=== PATIENT | male | born 1940 | race Caucasian/White ===

== ENCOUNTER 2017-07-03 17:43 | Inpatient (IN) | payer MEDICARE ==
--- NOTE | 2017-07-03 22:13 | CP.PCM.HP ---
History of Present Illness - History of Present Illness History of Present Illness: PMD: Erik Chadwick MD Urology Dr Brooks Neurology: Dr Bender Chief complaint: Right side weakness/Hematuria The patient was seen and examined in the Rehab Unit HPI: The hx is obtained from the patient and after review of the medical records. The patient was transferred from [facility] [place] to the [facility] for Rehabilitation. He is a 77 years old male with no significant medical hx, who was admitted to the [facility] on 06/23/17 with right side weakness and diagnosed with Acute CVA. While there he had Hematuria and CT abdomen/Pelvis showed a Pelvic mass. Cystoscopy was done with Evacuation of clots and fulguration of prostate bleeding. he received 7 units of PRBC and 2 FFP with 1 Platelet At present the patient is still with Dysarthria, weakness to the right upper and lower extremities with fontenot catheter in place having clear urine. PMH: Right inguinal Hernia; axillary abscess; HTN, Bladder base mass; Anemia due ot blood losssfrom Hematuria PSG: right Inguinal Hernia repair; I&D of Axillary Abscess SH: Live alone; Quit smoking 12 months ago; No Alcohol since 12 years ago; No illegal drug use FH: State: No known family Hx Allergy: NKDA Medication: Reviewed Present on Admission - Present on Admission Any Indicators Present on Admission: Yes History of DVT/PE: No History of Uncontrolled Diabetes: No Urinary Catheter: Yes Decubitus Ulcer Present: No Decubitus Ulcer Stage: II Review of Systems - Constitutional Constitutional: absent: Anorexia, Chills, Fever, Headache - EENT Eyes: absent: Itchy Eyes, Photophobia, Requires Corrective Lenses, Sees Flashes Ears: absent: Decreased Hearing, Ear Discharge, Ear Pain, Tinnitus Nose/Mouth/Throat: absent: Epistaxis, Nasal Congestion, Nasal Discharge, Sinus Pain, Sinus Pressure - Cardiovascular Cardiovascular: absent: Chest Pain, Dyspnea, Pedal Edema - Respiratory Respiratory: absent: Cough, Dyspnea, Wheezing, Stridor - Gastrointestinal Gastrointestinal: absent: Abdominal Pain, Constipation, Diarrhea, Nausea, Vomiting - Genitourinary Genitourinary: Hematuria Additional comments: Urinary retention Indwelling Fontenot catheter in place - Musculoskeletal Musculoskeletal: Limited Range of Motion, Muscle Weakness - Integumentary Integumentary: absent: Pruritus, Rash, Skin Ulcer, Striae, Swelling - Neurological Neurological: Focal Weakness, Weakness. absent: Confusion, Dizziness, Headaches , Paresthesias - Psychiatric Psychiatric: absent: Anxiety, Depression, Panic Attacks - Endocrine Endocrine: absent: Palpitations, Polydipsia, Polyphagia, Polyuria - Hematologic/Lymphatic Hematologic: absent: Easy Bleeding, Easy Bruising Past Patient History - Past Social History Smoking Status: Former Smoker Chewing Tobacco Use: No Cigar Use: No Alcohol: Other Drugs: Denies Home Situation {Lives}: Alone - CARDIAC Hx Cardiac Disorders: No - PULMONARY Hx Respiratory Disorders: No - NEUROLOGICAL HX Cerebrovascular Accident: Yes - HEENT Hx HEENT Problems: No - RENAL Hx Chronic Kidney Disease: No - ENDOCRINE/METABOLIC Hx Endocrine Disorders: No - HEMATOLOGICAL/ONCOLOGICAL Hx Blood Disorders: Yes Hx Anemia: Yes Hx Blood Transfusions: Yes - INTEGUMENTARY Hx Dermatological Problems: No - MUSCULOSKELETAL/RHEUMATOLOGICAL Hx Musculoskeletal Disorders: Yes - GASTROINTESTINAL Hx Gastrointestinal Disorders: No - GENITOURINARY/GYNECOLOGICAL Hx Hematuria: Yes Hx Prostate Problems: Yes - PSYCHIATRIC Hx Anxiety: No - SURGICAL HISTORY Hx Herniorrhaphy: Yes Other/Comment: I&D axillary abscess - ANESTHESIA Hx Anesthesia: Yes Hx Anesthesia Reactions: No Meds Allergies/Adverse Reactions: Allergies Allergy/AdvReac Type Severity Reaction Status Date / Time No Known Allergies Allergy Verified 07/03/17 20:09 Physical Exam - Constitutional Appears: No Acute Distress - Head Exam Head Exam: ATRAUMATIC, NORMOCEPHALIC - Eye Exam Eye Exam: EOMI, PERRL Pupil Exam: NORMAL ACCOMODATION, PERRL - ENT Exam ENT Exam: Mucous Membranes Moist, Normal Exam, Normal External Ear Exam - Neck Exam Neck exam: Positive for: Full Rom, Normal Inspection. Negative for: Lymphadenopathy, Tenderness - Respiratory Exam Additional comments: Mild diffuse rales in borth lung smalls - Cardiovascular Exam Cardiovascular Exam: REGULAR RHYTHM, RRR, +S1, +S2 - GI/Abdominal Exam GI & Abdominal Exam: Diminished Bowel Sounds, Normal Bowel Sounds, Soft. absent : Mass, Organomegaly - Rectal Exam Rectal Exam: Deferred - Extremities Exam Additional comments: edema 2+ at right upper extremity - Back Exam Back exam: NORMAL INSPECTION. absent: CVA tenderness (L), CVA tenderness (R) - Neurological Exam Additional comments: Right facial droop. dysarthria. Motor strength 0/5 at the right hand and 2/5 at the right elbow, 4/5 at the right lower extremity. Motor strength 5/5 at left upper and left lower extremities. - Psychiatric Exam Psychiatric exam: Normal Affect, Normal Mood - Skin Skin Exam: Dry, Intact, Normal Color, Warm Results - Labs Labs: Laboratory Results - last 24 hr 07/03/17 21:58 POC Glucose (mg/dL) 142 H HbA1c 4.6 on 06/24/17 Fe 13 on 06/25/17 - Imaging and Cardiology ECHO Status: Report reviewed by me Additional comment: EF of 57 % with EF of 57% and normal global systolic functioning Mildly enlarged RV cavitary CT scan - head Status: Report reviewed by me Additional comment: 06/23/17 Mild to moderate nonspecific white matter change likely due to small vessel disease. Old Right Thalamic Lacunar infarct. Small Cerebellar infarct. CT angio Neck Status: Report reviewed by me Additional comment: No Hemodynamically significant stenosis involvingg the left or right carotid bifurcation CT Angio Head Status: Report reviewed by me Additional comment: the intracraneal arterial circulation reveals no evidence of large aneurysmal high -grade stenosis or large vessel occlusion. US renal and urinary bladder Status: Report reviewed by me Additional comment: 10 x8.0 x8.1cm mass at the bladder base which may represent a primary bladder neoplasm or arising from the prostate gland. Assessment & Plan - Assessment and Plan (Free Text) Assessment: #. Acute CVA #. Bladder Mass with Hematuria #. HTN #. Blood Loss Anemia Plan: 77 years old male admitted to the [facility] on 06/23/17 with right side weakness and diagnosed with Acute CVA. While there he had Hematuria and CT abdomen/Pelvis showed a Pelvic mass. Cystoscopy was done with Evacuation of clots and fulguration of prostate bleeding. he received 7 units of PRBC and 2 FFP with 1 Platelet At present the patient is still with Dysarthria, weakness to the right upper and lower extremities with fontenot catheter in place having clear urine. #. Acute CVA - Consult Dr Prabhakar Medical Technologist Prn - Consult Dr Bender Neurology - ASA - lipitor - PT/OT - Speech Therapy #. Bladder Mass with Hematuria s/p Cystoscopy and Bx - Maintain Fontenot catheter in place - To follow up with Dr Spangler Urology on discharge #. HTN - Amlodipine - follow Blood Pressures #. Blood Loss Anemia. patient was treated with blood transfusions and IV Venofer - Fesol BID #. The Patient is not Diabetic - HbA1c 4.6 - Accu Check for 2 days #. DVT Prophylaxis with SCD. no Anticoagulant for 2 weeks because of the severe hematuria #. Code Status: Full - Date & Time Date: 07/03/17 Time: 22:13
[2017-07-04] MEDS: Insulin Lispro (humaLOG) 100 Units/ml Inj SC SCH ×4 (06:31→21:45)
[2017-07-04 06:36] LABS: BLOOD UREA NITROGEN 18 mg/dl (9-20); GFR AFRICAN-AMERICAN > 60; GFR NON-AFRICAN AMERICAN > 60
[2017-07-04 06:40] LABS: HEMOGLOBIN 10.4 g/dL (12.0-18.0); MEAN CELL VOLUME 87.5 fl (80.0-94.0); MEAN CORPUSCULAR HEMOGLOBIN 29.4 pg (27.0-31.0); MEAN CORPUSCULAR HGB CONC 33.7 g/dL (33.0-37.0); RBC 3.52 Mil/uL (4.40-5.90); RED CELL DISTRIBUTION WIDTH 16.5 % (11.5-14.5); WHITE BLOOD COUNT 6.7 K/uL (4.8-10.8)
[2017-07-04 07:10] LABS: INR 1.2 (0.9-1.2); PARTIAL THROMBOPLASTIN TIME 30.3 Seconds (25.6-37.1)
[2017-07-04] MEDS: Ferrous Sulfate 300 mg/5 mL Liq UD PO SCH (08:29)
--- NOTE | 2017-07-04 10:17 | PCM.OPOC ---
Physiatry Overall Plan of Care - Overall Plan of Care Estimated Length of Stay in Weeks: 3 Rehab Impairment: Mobility, Gait, Speech, Balance, Coordination Etiologic Diagnosis: Cerebrovascular Accident Rehab/Medical Prognosis: Fair - Anticipated Interventions Physical Therapy:: Yes Occupational Therapy:: Yes Speech Therapy:: Yes Recreational Therapy:: Yes - Therapy Goals Bed Mobility: Contact Guard Ambulation: Contact Guard Functional Positional Changes:: Contact Guard - Discharge Plan Identification of Barriers to Discharge: Home Situation Discharge Destination: Subacute
--- NOTE | 2017-07-04 10:19 | CP.PCM.CON ---
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 Left hand dominant Review of Systems - Constitutional Constitutional: absent: Chills - EENT Eyes: absent: Change in Vision Nose/Mouth/Throat: absent: Nasal Congestion - Cardiovascular Cardiovascular: absent: Chest Pain - Respiratory Respiratory: absent: Hemoptysis - Gastrointestinal Gastrointestinal: absent: Abdominal Pain - Musculoskeletal Musculoskeletal: absent: Back Pain - Integumentary Integumentary: Skin Ulcer (right buttock) - Neurological Neurological: Weakness (right UE>LE). absent: Abnormal Movements - Psychiatric Psychiatric: absent: Anxiety Past Patient History - Past Medical History & Family History Past Medical History?: Yes - Past Social History Smoking Status: Former Smoker Chewing Tobacco Use: No Cigar Use: No Alcohol: Other Drugs: Denies Home Situation {Lives}: Alone - CARDIAC Hx Cardiac Disorders: No - PULMONARY Hx Respiratory Disorders: No - NEUROLOGICAL HX Cerebrovascular Accident: Yes - HEENT Hx HEENT Problems: No - RENAL Hx Chronic Kidney Disease: No - ENDOCRINE/METABOLIC Hx Endocrine Disorders: No - HEMATOLOGICAL/ONCOLOGICAL Hx Blood Disorders: Yes Hx Anemia: Yes Hx Blood Transfusions: Yes - INTEGUMENTARY Hx Dermatological Problems: No - MUSCULOSKELETAL/RHEUMATOLOGICAL Hx Musculoskeletal Disorders: Yes - GASTROINTESTINAL Hx Gastrointestinal Disorders: No - GENITOURINARY/GYNECOLOGICAL Hx Hematuria: Yes Hx Prostate Problems: Yes - PSYCHIATRIC Hx Anxiety: No - SURGICAL HISTORY Hx Herniorrhaphy: Yes Other/Comment: I&D axillary abscess - ANESTHESIA Hx Anesthesia: Yes Hx Anesthesia Reactions: No Meds Allergies/Adverse Reactions: Allergies Allergy/AdvReac Type Severity Reaction Status Date / Time No Known Allergies Allergy Verified 07/03/17 20:09 - Medications Medications: Current Medications Amlodipine Besylate (Norvasc) 10 mg PO DAILY [facility] Last Admin: 07/04/17 08:29 Dose: 10 mg Aspirin (Ecotrin) 81 mg PO DAILY [facility] Last Admin: 07/04/17 08:28 Dose: 81 mg Atorvastatin Calcium (Lipitor) 80 mg PO [facility] Last Admin: 07/03/17 22:54 Dose: 80 mg Ferrous Sulfate (Feosol Liq) 300 mg PO DAILY [facility] Last Admin: 07/04/17 08:29 Dose: 300 mg Finasteride (Proscar) 5 mg PO DAILY [facility] Last Admin: 07/04/17 08:28 Dose: 5 mg Insulin Human Lispro (Humalog) 0 units SC [facility] PRN Reason: Protocol Last Admin: 07/04/17 06:31 Dose: Not Given Tamsulosin HCl (Flomax) 0.4 mg PO DAILY [facility] Physical Exam - Constitutional Appears: Non-toxic, No Acute Distress - Head Exam Head Exam: ATRAUMATIC, NORMAL INSPECTION, NORMOCEPHALIC - Eye Exam Eye Exam: EOMI - ENT Exam ENT Exam: Mucous Membranes Moist - Respiratory Exam Respiratory Exam: NORMAL BREATHING PATTERN - Cardiovascular Exam Cardiovascular Exam: REGULAR RHYTHM - GI/Abdominal Exam GI & Abdominal Exam: absent: Distended, Firm - Extremities Exam Extremities exam: Negative for: calf tenderness, pedal edema - Neurological Exam Neurological exam: Alert, Oriented x3 - Expanded Neurological Exam Expanded Speech: Garbled Speech (dysarthria) Neuro motor strength exam: Left Upper Extremity: 5, Right Upper Extremity: 2/1 ( no distal strength), Left Lower Extremity: 5, Right Lower Extremity: 3 Coma Scale Eye Opening: SPONTANEOUS Coma Scale Motor Response: OBEYS COMMANDS - Psychiatric Exam Psychiatric exam: Normal Affect, Normal Mood - Skin Skin Exam: Normal Color (has a 2x2 skin tear right buttock stage II) Results - Vital Signs Recent Vital Signs: Last Vital Signs Temp 97.9 F 07/04/17 08:00 Pulse 73 07/04/17 08:29 Resp 20 07/04/17 08:00 BP 145/69 07/04/17 08:29 Pulse Ox 100 07/04/17 08:00 - Labs Result Diagrams: 07/04/17 05:25 07/04/17 05:25 Labs: Laboratory Results - last 24 hr 07/03/17 07/04/17 07/04/17 21:58 05:25 05:25 WBC 6.7 RBC 3.52 L Hgb 10.4 L Hct 30.8 L MCV 87.5 MCH 29.4 MCHC 33.7 RDW 16.5 H Plt Count 398 PT 13.0 INR 1.2 APTT 30.3 Sodium Potassium Chloride Carbon Dioxide Anion Gap BUN Creatinine Est GFR ( Amer) Est GFR (Non-Af Amer) POC Glucose (mg/dL) 142 H Random Glucose Calcium 07/04/17 07/04/17 05:25 05:55 WBC RBC Hgb Hct MCV MCH MCHC RDW Plt Count PT INR APTT Sodium 135 Potassium 3.9 Chloride 99 Carbon Dioxide 26 Anion Gap 14 BUN 18 Creatinine 0.7 L Est GFR ( Amer) > 60 Est GFR (Non-Af Amer) > 60 POC Glucose (mg/dL) 81 Random Glucose 76 Calcium 8.0 L Assessment & Plan - Assessment and Plan (Free Text) Assessment: Left CVA with right HP, MCA distribution right stage II buttock skin tear not pressure ulcer, will treat with allevyn thin PT/OT to continue to help increase functional independence Team conference for d/c planning Pain: controlled Vascular: no evidence of DVT GI: No evidence of constipation or diarrhea Patient is an excellent acute rehabilitation candidate and will have focused wound care, PT, OT and recreational therapy to help facilitate a safe and appropriate d/c plan Plan: impairment code 01.2
--- NOTE | 2017-07-04 11:26 | CP.PCM.PN ---
Subjective - Date & Time of Evaluation Date of Evaluation: 07/04/17 Time of Evaluation: 10:00 - Subjective Subjective: Patient seen and examined at bedside. States he feels well. No new complaints currently. Denies cp, sob, worsening weakness, headache, n/v/d. Objective - Vital Signs/Intake and Output Vital Signs (last 24 hours): Temp Pulse Resp BP Pulse Ox 97.9 F 73 20 145/69 100 07/04/17 08:00 07/04/17 08:29 07/04/17 08:00 07/04/17 08:29 07/04/17 08:00 - Medications Medications: Current Medications Amlodipine Besylate (Norvasc) 10 mg PO DAILY [facility] Last Admin: 07/04/17 08:29 Dose: 10 mg Aspirin (Ecotrin) 81 mg PO DAILY [facility] Last Admin: 07/04/17 08:28 Dose: 81 mg Atorvastatin Calcium (Lipitor) 80 mg PO HS [facility] Last Admin: 07/03/17 22:54 Dose: 80 mg Ferrous Sulfate (Feosol Liq) 300 mg PO DAILY [facility] Last Admin: 07/04/17 08:29 Dose: 300 mg Finasteride (Proscar) 5 mg PO DAILY [facility] Last Admin: 07/04/17 08:28 Dose: 5 mg Insulin Human Lispro (Humalog) 0 units SC [facility] PRN Reason: Protocol Last Admin: 07/04/17 06:31 Dose: Not Given Tamsulosin HCl (Flomax) 0.4 mg PO DAILY [facility] - Labs Labs: 07/04/17 05:25 07/04/17 05:25 PT 13.0 Seconds (9.8-13.1) 07/04/17 05:25 INR 1.2 (0.9-1.2) 07/04/17 05:25 APTT 30.3 Seconds (25.6-37.1) 07/04/17 05:25 - Additional Findings Additional findings: Physical exam: Constitutional- cooperative, awake, alert Head- NCAT, PERRL Eye- PERRL, EOMI ENT- normal exam, MMM. Neck- normal inspection, supple, no JVD Respiratory- CTAB, no wheezes rales rhonchi Cardiovascular- RRR, +S1, +S2 no MRG GI/Abdominal- normal bowel sounds, soft, no mass, no hsm Skin- warm, dry. STAGE 2 Sacral decubitus ulcer on right buttock present since admission. Extremities Exam- normal capillary refill, normal inspection. +2 edema at right upper extremity Neurological Exam- + right facial droop, Motor strength 1/5 right hand, 2/5 at right elbow, 4/5 at right lower extremity. Motor strength 5/5 at left upper and left lower extremities. alert, awake, oriented Psych- normal mood, normal affect Assessment and Plan - Assessment and Plan (Free Text) Plan: #. Acute CVA #. Bladder Mass with Hematuria #. HTN #. Blood Loss Anemia Plan: 77 years old male admitted to the [facility] on 06/23/17 with right side weakness and diagnosed with Acute CVA. While there he had Hematuria and CT abdomen/Pelvis showed a Pelvic mass. Cystoscopy was done with Evacuation of clots and fulguration of prostate bleeding. he received 7 units of PRBC and 2 FFP with 1 Platelet At present the patient is still with Dysarthria, weakness to the right upper and lower extremities with fontenot catheter in place having clear urine. #. Acute CVA - Consult Dr Prabhakar Technical Sales Support Manager - Consult Dr Bedner Neurology - ASA - lipitor - PT/OT - Speech Therapy #. Bladder Mass with Hematuria s/p Cystoscopy and Bx - Maintain Fontenot catheter in place - To follow up with Dr Spangler Urology on discharge #. HTN - Amlodipine - follow Blood Pressures #. Blood Loss Anemia. patient was treated with blood transfusions and IV Venofer - Fesol BID #. The Patient is not Diabetic - HbA1c 4.6 - Accu Check for 1 more day then d/c if not elevated #. DVT Prophylaxis with SCD. no Anticoagulant for 2 weeks because of the severe hematuria #. Code Status: Full
[2017-07-05] MEDS: Insulin Lispro (humaLOG) 100 Units/ml Inj SC SCH ×2 (07:04→16:30)
[2017-07-05] MEDS: Sodium Chloride 0.9% 500 ML IV ONE (08:00)
--- NOTE | 2017-07-05 08:34 | PCM.RRT ---
<Martina Yusuf - Last Filed: 07/05/17 08:36> I.Reason for TRUCK DRIVER HELPER - A) Acute Change in Patient: Subjective: 77 yo M with PMH recent CVA, TRUCK DRIVER HELPER called due to AMS (unresponsive) and hypotension 79/43 mm Hg. Blood glucose fingerstick performed prior to responder arrival: 98. Pt is a recent transfer from [facility], is here for rehab. Of note, as per hx, was transfused 7U PRBC at [facility]. He has been receiving Norvasc 10 mg. O: Gen: On responder arrival, elderly male laying in bed, appears tired but alert, awake, oriented. CV: S1S2,RRR Resp: clear to ausc MSK: deficit on right side from recent CVA Interventions at TRUCK DRIVER HELPER EKG - NSR @ 73 bpm, biatrial enlargement 500 ml bolus NS Vitals at end of TRUCK DRIVER HELPER: BP 127/68 mm Hg, HR 77 bpm, SpO2 100% on room air. A: 77 yo M with PMH CVA, had TRUCK DRIVER HELPER called due to AMS/unresponsiveness and hypotension. During TRUCK DRIVER HELPER pt was responsive, and after fluid bolus started, BP improved to 127/68 mm Hg. Likely syncopal episode, but cannot rule out other etiologies such as but not limited to seizure, metabolic abnormalities. P: CT head w/o contrast EEG CBC CMP Troponin TSH Mg Phos Type and Screen AM cortisol PT on norvasc- hold norvasc Continue to monitor Pt seen/examined/discussed with hospitalist Dr. Driscoll. <Olga Lidia Driscoll - Last Filed: 07/05/17 09:06> Attending/Attestation - Attestation I have personally seen and examined this patient.: Yes I have fully participated in the care of the patient.: Yes I have reviewed all pertinent clinical information, including history, physical exam and plan: Yes Notes (Text): TRUCK DRIVER HELPER called bec of unresponsiveness for a few seconds described as " staring blankly". Noted BP at that time to be low. However event lasted less than a minute and patient was back to his baseline. No new Neuro deficit. Pt's BP then went up to baseline. A/P: ? Syncope vs Seizure - CT of head : subacute infarct, no bleed - IVF NS 500ml bolus - keep pt hydrated - EKG : no acute change - check CBC to r/o anemia ( pt has hx of anemia due to hematuria) - check CMP, Trop, Cortisol levl, TSH - EEG - Check for Orthostatic VS - Dr Bender - rec to start antiseizure med - will cont to monitor - hold Norvasc for now
--- NOTE | 2017-07-05 08:42 | CT ---
PROCEDURE: CT HEAD WITHOUT CONTRAST. HISTORY: FURNITURE CRATER, AMS COMPARISON: None available. TECHNIQUE: Axial computed tomography images were obtained through the head/brain without intravenous contrast. Radiation dose: Total exam DLP = 892.92 mGy-cm. This CT exam was performed using one or more of the following dose reduction techniques: Automated exposure control, adjustment of the mA and/or kV according to patient size, and/or use of iterative reconstruction technique. FINDINGS: HEMORRHAGE: No intracranial hemorrhage. BRAIN: No mass effect or edema. Low-attenuation extending from left bran radiata to high left frontal white matter with sparing overlying cortex. Possible subacute infarct. MCA territory. VENTRICLES: Unremarkable. No hydrocephalus. CALVARIUM: Unremarkable. PARANASAL SINUSES: Unremarkable as visualized. No significant inflammatory changes. MASTOID AIR CELLS: Unremarkable as visualized. No inflammatory changes. OTHER FINDINGS: None. IMPRESSION: Suspect left MCA territory subacute infarct. Please correlate clinically.
[2017-07-05] MEDS: Ferrous Sulfate 300 mg/5 mL Liq UD PO SCH (09:19)
[2017-07-05 10:22] LABS: BASO # 0.1 K/uL (0.0-0.2); BASO % 0.9 % (0.0-2.0); EOS % 0.2 % (0.0-4.0); HEMOGLOBIN 11.1 g/dL (12.0-18.0); LYMPH # 0.7 K/uL (1.0-4.3); MEAN CELL VOLUME 86.8 fl (80.0-94.0); MEAN CORPUSCULAR HEMOGLOBIN 29.8 pg (27.0-31.0); MEAN CORPUSCULAR HGB CONC 34.3 g/dL (33.0-37.0); MEAN PLATELET VOLUME 7.3 fl (7.2-11.7); MONO # 0.7 K/uL (0.0-0.8); NEUT # 9.4 K/uL (1.8-7.0); NEUT % 86.9 % (50.0-75.0); NRBC % 0.1 % (0.0-0.0); PLATELET COUNT 472 K/uL (130-400); RBC 3.73 Mil/uL (4.40-5.90); WHITE BLOOD COUNT 10.9 K/uL (4.8-10.8)
[2017-07-05 10:28] LABS: ALB/GLOB RATIO 0.8 (1.0-2.1); ALBUMIN 2.7 g/dL (3.5-5.0); ALT/SGPT 43 U/L (21-72); AST/SGOT 55 U/L (17-59); BLOOD UREA NITROGEN 16 mg/dl (9-20); CALCIUM 7.9 mg/dL (8.4-10.2); GFR AFRICAN-AMERICAN > 60; GFR NON-AFRICAN AMERICAN > 60
[2017-07-05 11:43] LABS: LYMPHOCYTE 6 % (20-50); MONOCYTE 7 % (0-10); NEUTROPHIL 87 % (42-75); TOTAL CELLS COUNTED 100
[2017-07-05 11:44] LABS: ACANTHOCYTES SLIGHT; ANISOCYTOSIS SLIGHT; BURR CELLS SLIGHT; GIANT PLATELETS PRESENT; OVALOCYTES SLIGHT; PLATELET ESTIMATE SLIGHTLY INCREASED (NORMAL); POIKILOCYTOSIS SLIGHT; SCHISTOCYTES SLIGHT; TOXIC GRANULATION PRESENT
[2017-07-05 11:46] LABS: LARGE PLATELETS PRESENT
--- NOTE | 2017-07-05 18:20 | CP.PCM.PN ---
Subjective - Date & Time of Evaluation Date of Evaluation: 07/05/17 Time of Evaluation: 14:00 - Subjective Subjective: no acute complaint at present Objective - Vital Signs/Intake and Output Vital Signs (last 24 hours): Temp Pulse Resp BP Pulse Ox 98.0 F 76 20 130/53 L 96 07/05/17 09:48 07/05/17 09:48 07/05/17 09:48 07/05/17 09:48 07/05/17 09:48 Intake and Output: 07/05/17 07/05/17 06:59 18:59 Intake Total 500 Output Total 1200 Balance -700 - Medications Medications: Current Medications Amlodipine Besylate (Norvasc) 10 mg PO DAILY [facility] Aspirin (Ecotrin) 81 mg PO DAILY [facility] Last Admin: 07/05/17 09:19 Dose: 81 mg Atorvastatin Calcium (Lipitor) 80 mg PO [facility] Last Admin: 07/04/17 21:05 Dose: 80 mg Ferrous Sulfate (Feosol Liq) 300 mg PO DAILY [facility] Last Admin: 07/05/17 09:19 Dose: 300 mg Finasteride (Proscar) 5 mg PO DAILY [facility] Last Admin: 07/05/17 09:19 Dose: 5 mg Insulin Human Lispro (Humalog) 0 units SC [facility] PRN Reason: Protocol Last Admin: 07/05/17 16:30 Dose: Not Given Levetiracetam (Keppra) 500 mg PO BID [facility] Last Admin: 07/05/17 17:51 Dose: 500 mg Tamsulosin HCl (Flomax) 0.4 mg PO DAILY@1999 [facility] Last Admin: 07/04/17 20:00 Dose: 0.4 mg - Labs Labs: 07/05/17 08:00 07/05/17 08:00 PT 13.0 Seconds (9.8-13.1) 07/04/17 05:25 INR 1.2 (0.9-1.2) 07/04/17 05:25 APTT 30.3 Seconds (25.6-37.1) 07/04/17 05:25 - Head Exam Head Exam: ATRAUMATIC, NORMAL INSPECTION, NORMOCEPHALIC - Eye Exam Eye Exam: EOMI, Normal appearance Pupil Exam: NORMAL ACCOMODATION, PERRL - ENT Exam ENT Exam: Mucous Membranes Moist - Neck Exam Neck Exam: Normal Inspection - Respiratory Exam Respiratory Exam: Clear to Ausculation Bilateral, NORMAL BREATHING PATTERN - Cardiovascular Exam Cardiovascular Exam: REGULAR RHYTHM - GI/Abdominal Exam GI & Abdominal Exam: Soft, Normal Bowel Sounds - Rectal Exam Rectal Exam: NORMAL INSPECTION - Exam External exam: NORMAL EXTERNAL EXAM - Extremities Exam Extremities Exam: Full ROM, Normal Capillary Refill, Normal Inspection - Back Exam Back Exam: NORMAL INSPECTION - Neurological Exam Neurological Exam: Alert, Awake Additional comments: weakness in extremities - Psychiatric Exam Psychiatric exam: Normal Affect, Normal Mood - Skin Skin Exam: Normal Color Assessment and Plan (1) Gait abnormality Assessment & Plan: plan for physical, occupational therapy , rec therapy covering for Dr Prabhakar for today Status: Acute
[2017-07-06] MEDS: Insulin Lispro (humaLOG) 100 Units/ml Inj SC SCH ×2 (07:12→17:22)
--- NOTE | 2017-07-06 09:14 | CP.PCM.CON ---
History of Present Illness - History of Present Illness History of Present Illness: Mr. Noriega is a 77 y/o AAM with no significant medical hx, who was admitted to the [facility] on 06/23/17 with right side weakness and diagnosed with Acute CVA. [place] [facility] [place] he had an episode of hematuria and CT abdomen/Pelvis showed a Pelvic mass. Cystoscopy was done with Evacuation of clots and fulguration of prostate bleeding. he received 7 units of PRBC and 2 FFP with 1 Platelet during [place] [facility] [place] He was seen by Dr. Bender [place] [facility] [place]The patient was transferred from [facility] to the [facility]. At present the patient is still with Dysarthria, weakness to the right upper and lower extremities with fontenot catheter in place having clear urine. History is obtained from the patient and after review of the medical records. On July 05, 2017 a MANAGER MOLECULAR was called due to AMS (unresponsive) and hypotension 79/43 mm Hg. Blood glucose fingerstick performed prior to responder arrival: 98 which prompted the team to consult our team ( Dr. Kevin/ Jaya). At present he is alert, oriented with dysarthria noted, denies any headache, dizziness, lightheadedness, blurred vision, nausea or vomiting. Review of Systems - Review of Systems All systems: reviewed and no additional remarkable complaints except Past Patient History - Past Medical History & Family History Past Medical History?: Yes - Past Social History Smoking Status: Former Smoker Chewing Tobacco Use: No Cigar Use: No Alcohol: Other Drugs: Denies Home Situation {Lives}: Alone - CARDIAC Hx Cardiac Disorders: No - PULMONARY Hx Respiratory Disorders: No - NEUROLOGICAL HX Cerebrovascular Accident: Yes - HEENT Hx HEENT Problems: No - RENAL Hx Chronic Kidney Disease: No - ENDOCRINE/METABOLIC Hx Endocrine Disorders: No - HEMATOLOGICAL/ONCOLOGICAL Hx Blood Disorders: Yes Hx Anemia: Yes Hx Blood Transfusions: Yes - INTEGUMENTARY Hx Dermatological Problems: No - MUSCULOSKELETAL/RHEUMATOLOGICAL Hx Musculoskeletal Disorders: Yes - GASTROINTESTINAL Hx Gastrointestinal Disorders: No - GENITOURINARY/GYNECOLOGICAL Hx Hematuria: Yes Hx Prostate Problems: Yes - PSYCHIATRIC Hx Anxiety: No - SURGICAL HISTORY Hx Herniorrhaphy: Yes Other/Comment: I&D axillary abscess - ANESTHESIA Hx Anesthesia: Yes Hx Anesthesia Reactions: No Meds Allergies/Adverse Reactions: Allergies Allergy/AdvReac Type Severity Reaction Status Date / Time No Known Allergies Allergy Verified 07/03/17 20:09 - Medications Medications: Current Medications Amlodipine Besylate (Norvasc) 10 mg PO DAILY [facility] Aspirin (Ecotrin) 81 mg PO DAILY [facility] Last Admin: 07/05/17 09:19 Dose: 81 mg Atorvastatin Calcium (Lipitor) 80 mg PO HS [facility] Last Admin: 07/05/17 21:22 Dose: 80 mg Ferrous Sulfate (Feosol Liq) 300 mg PO DAILY [facility] Last Admin: 07/05/17 09:19 Dose: 300 mg Finasteride (Proscar) 5 mg PO DAILY [facility] Last Admin: 07/05/17 09:19 Dose: 5 mg Insulin Human Lispro (Humalog) 0 units SC [facility] PRN Reason: Protocol Last Admin: 07/06/17 07:12 Dose: Not Given Levetiracetam (Keppra) 500 mg PO BID [facility] Last Admin: 07/05/17 17:51 Dose: 500 mg Tamsulosin HCl (Flomax) 0.4 mg PO DAILY@1999 [facility] Last Admin: 07/05/17 21:22 Dose: 0.4 mg Physical Exam - Constitutional Appears: No Acute Distress - Head Exam Head Exam: NORMAL INSPECTION - Eye Exam Eye Exam: EOMI, Normal appearance, PERRL Pupil Exam: PERRL - ENT Exam ENT Exam: Mucous Membranes Moist, Normal Exam - Neck Exam Neck exam: Positive for: Normal Inspection - Respiratory Exam Respiratory Exam: Clear to Auscultation Bilateral, NORMAL BREATHING PATTERN - Cardiovascular Exam Cardiovascular Exam: +S1, +S2 - GI/Abdominal Exam GI & Abdominal Exam: Normal Bowel Sounds, Soft. absent: Tenderness - Neurological Exam Neurological exam: Alert, Oriented x3 - Expanded Neurological Exam Expanded Patient oriented to: person, place, time Speech: Slurred Speech Cranial nerves: EOM's Intact: Normal, Facial Palsey w/Forehead Movement: Abnormal Right, Facial Sensation: Normal, Gag Reflex: Normal, Nystagmus: Normal , Tongue Deviation: Abnormal Right Cerebellar Function: Finger to Nose: Abnormal Right (with right side weakness unable to perform), Heel to Gonzalez: Abnormal Right Sensory exam: Lower Extremity 2 Point Discrimination: Normal, Lower Extremity Light Touch: Normal, Lower Extremity Pin Prick: Normal, Lower Extremity Temperature: Normal, Upper Extremity 2 Point Discrimination: Normal, Upper Extremity Light Touch: Normal, Upper Extremity Pin Prick: Normal, Upper Extremity Temperature: Normal Neuro motor strength exam: Left Upper Extremity: 5, Right Upper Extremity: 2/1, Left Lower Extremity: 5, Right Lower Extremity: 3 Results - Vital Signs Recent Vital Signs: Last Vital Signs Temp 97.3 F L 07/05/17 19:53 Pulse 78 07/05/17 19:53 Resp 19 07/05/17 19:53 BP 136/67 07/05/17 19:53 Pulse Ox 99 07/05/17 19:53 - Labs Result Diagrams: 07/05/17 08:00 07/05/17 08:00 Labs: Laboratory Results - last 24 hr 07/05/17 07/05/17 07/05/17 05:38 08:00 08:00 WBC 10.9 H D RBC 3.73 L Hgb 11.1 L Hct 32.4 L MCV 86.8 MCH 29.8 MCHC 34.3 RDW 16.0 H Plt Count 472 H MPV 7.3 Neut % (Auto) 86.9 H Lymph % (Auto) 6.0 L [place] % (Auto) 6.0 Eos % (Auto) 0.2 Baso % (Auto) 0.9 Neut # (Auto) 9.4 H Lymph # (Auto) 0.7 L [place] # (Auto) 0.7 Eos # (Auto) 0.0 Baso # (Auto) 0.1 Neutrophils % (Manual) 87 H Lymphocytes % (Manual) 6 L Monocytes % (Manual) 7 Toxic Granulation Present Platelet Estimate Slightly increased H Plt Clumps, EDTA TEST NOT PERFORMED Large Platelets Present Giant Platelets Present Poikilocytosis (manual Slight Anisocytosis (manual) Slight Ovalocytes Slight [place]anna Cells Slight Acanthocytes (Spur) Slight Schistocytes Slight Sodium 134 Potassium 4.2 Chloride 100 Carbon Dioxide 24 Anion Gap 14 BUN 16 Creatinine 0.7 L Est GFR ( Amer) > 60 Est GFR (Non-Af Amer) > 60 POC Glucose (mg/dL) 84 Random Glucose 97 Calcium 7.9 L Phosphorus Magnesium 2.1 Total Bilirubin 0.5 AST 55 ALT 43 Alkaline Phosphatase 54 Troponin I < 0.0120 Total Protein 6.0 L Albumin 2.7 L Globulin 3.3 Albumin/Globulin Ratio 0.8 L TSH 3rd Generation Cortisol AM Sample Blood Type Blood Type Confirm Antibody Screen BBK History Checked 0507/05/17 07/05/17 08:00 08:00 10:00 WBC RBC Hgb Hct MCV MCH MCHC RDW Plt Count MPV Neut % (Auto) Lymph % (Auto) [place] % (Auto) Eos % (Auto) Baso % (Auto) Neut # (Auto) Lymph # (Auto) [place] # (Auto) Eos # (Auto) Baso # (Auto) Neutrophils % (Manual) Lymphocytes % (Manual) Monocytes % (Manual) Toxic Granulation Platelet Estimate Plt Clumps, EDTA Large Platelets Giant Platelets Poikilocytosis (manual Anisocytosis (manual) Ovalocytes [employer] Cells Acanthocytes (Spur) Schistocytes Sodium Potassium Chloride Carbon Dioxide Anion Gap BUN Creatinine Est GFR ( Amer) Est GFR (Non-Af Amer) POC Glucose (mg/dL) Random Glucose Calcium Phosphorus 3.0 Magnesium Total Bilirubin AST ALT Alkaline Phosphatase Troponin I Total Protein Albumin Globulin Albumin/Globulin Ratio TSH 3rd Generation 1.74 Cortisol AM Sample 18.8 Blood Type A POSITIVE Blood Type Confirm Antibody Screen Negative BBK History Checked No verified bt 07/05/17 07/05/17 07/05/17 10:14 11:52 17:03 WBC RBC Hgb Hct MCV MCH MCHC RDW Plt Count MPV Neut % (Auto) Lymph % (Auto) [place] % (Auto) Eos % (Auto) Baso % (Auto) Neut # (Auto) Lymph # (Auto) [place] # (Auto) Eos # (Auto) Baso # (Auto) Neutrophils % (Manual) Lymphocytes % (Manual) Monocytes % (Manual) Toxic Granulation Platelet Estimate Plt Clumps, EDTA Large Platelets Giant Platelets Poikilocytosis (manual Anisocytosis (manual) Ovalocytes [place]anna Cells Acanthocytes (Spur) Schistocytes Sodium Potassium Chloride Carbon Dioxide Anion Gap BUN Creatinine Est GFR ( Amer) Est GFR (Non-Af Amer) POC Glucose (mg/dL) 161 H 79 Random Glucose Calcium Phosphorus Magnesium Total Bilirubin AST ALT Alkaline Phosphatase Troponin I Total Protein Albumin Globulin Albumin/Globulin Ratio TSH 3rd Generation Cortisol AM Sample Blood Type Blood Type Confirm A POSITIVE Antibody Screen BBK History Checked 07/06/17 05:32 WBC RBC Hgb Hct MCV MCH MCHC RDW Plt Count MPV Neut % (Auto) Lymph % (Auto) [place] % (Auto) Eos % (Auto) Baso % (Auto) Neut # (Auto) Lymph # (Auto) [place] # (Auto) Eos # (Auto) Baso # (Auto) Neutrophils % (Manual) Lymphocytes % (Manual) Monocytes % (Manual) Toxic Granulation Platelet Estimate Plt Clumps, EDTA Large Platelets Giant Platelets Poikilocytosis (manual Anisocytosis (manual) Ovalocytes [employer] Cells Acanthocytes (Spur) Schistocytes Sodium Potassium Chloride Carbon Dioxide Anion Gap BUN Creatinine Est GFR ( Amer) Est GFR (Non-Af Amer) POC Glucose (mg/dL) 84 Random Glucose Calcium Phosphorus Magnesium Total Bilirubin AST ALT Alkaline Phosphatase Troponin I Total Protein Albumin Globulin Albumin/Globulin Ratio TSH 3rd Generation Cortisol AM Sample Blood Type Blood Type Confirm Antibody Screen BBK History Checked - Imaging and Cardiology CT scan - head Additional comment: CT scan head done 07/05/2017 showed a left MCA territory subacute infarct. Assessment & Plan (1) CVA (cerebral vascular accident) Assessment and Plan: This is a 77 y/o AAM with no significant medical hx, who was admitted to the [facility] on 06/23/17 with right side weakness and diagnosed with Acute CVA with an episode of unresponsiveness yesterday. Case discussed with Dr. Kevin, recommend the following 1. PT/ OT/ ST eval and treat 2. Monitor blood pressure, refrain from being hypotensive. 3. Continue aspirin 81 mg PO daily 4. Maintain LDL < 70 keep lipitor 80 mg PO Q HS. 5. Encourage increase PO intake to mainatin hydration. Thank You. Status: Acute (2) Syncope Assessment and Plan: 77 y/o AAM with no significant medical hx, who was admitted to the [facility] on 06/23/17 with right side weakness and diagnosed with Acute CVA. with episode of unresponsive yesterday. Case discussed with Dr. Kevin, recommend the followin. EEG in am 2. Continue keppra 500 mg PO Q 12 hours. 3. echocardiogram to evaluate if unresponsive is not a cardiac issue. Thank You. Status: Acute
[2017-07-06] MEDS: Ferrous Sulfate 300 mg/5 mL Liq UD PO SCH (09:27)
[2017-07-07] MEDS: Ferrous Sulfate 300 mg/5 mL Liq UD PO SCH (08:51)
--- NOTE | 2017-07-07 12:24 | CP.PCM.PN ---
Subjective - Date & Time of Evaluation Date of Evaluation: 07/07/17 Time of Evaluation: 12:21 - Subjective Subjective: Mr. Marino was seen and examined at the bedside. He is alert, oriented with slurred speech with right facial droop and right side weakness.He denies any headache but claims of dizziness with change of position. His systolic blood pressure was at 70's this morning. At present, he is alert, able to recall the morning incident, and able to follow simple commands. Objective - Vital Signs/Intake and Output Vital Signs (last 24 hours): Temp Pulse Resp BP Pulse Ox 97.9 F 73 20 104/55 L 99 07/07/17 07:41 07/07/17 07:41 07/07/17 07:41 07/07/17 11:59 07/07/17 07:41 Intake and Output: 07/07/17 07/07/17 06:59 18:59 Intake Total 350 Output Total 1000 Balance -650 - Medications Medications: Current Medications Amlodipine Besylate (Norvasc) 10 mg PO DAILY [facility] Aspirin (Ecotrin) 81 mg PO DAILY [facility] Last Admin: 07/07/17 08:51 Dose: 81 mg Atorvastatin Calcium (Lipitor) 80 mg PO HS [facility] Last Admin: 07/06/17 21:42 Dose: 80 mg Ferrous Sulfate (Feosol Liq) 300 mg PO DAILY [facility] Last Admin: 07/07/17 08:51 Dose: 300 mg Finasteride (Proscar) 5 mg PO DAILY [facility] Last Admin: 07/07/17 08:51 Dose: 5 mg Levetiracetam (Keppra) 500 mg PO BID [facility] Last Admin: 07/07/17 08:51 Dose: 500 mg Tamsulosin HCl (Flomax) 0.4 mg PO DAILY@1999 [facility] Last Admin: 07/06/17 21:42 Dose: 0.4 mg - Labs Labs: 07/05/17 08:00 07/05/17 08:00 PT 13.0 Seconds (9.8-13.1) 07/04/17 05:25 INR 1.2 (0.9-1.2) 07/04/17 05:25 APTT 30.3 Seconds (25.6-37.1) 07/04/17 05:25 - Constitutional Appears: No Acute Distress - Head Exam Head Exam: NORMAL INSPECTION - Neurological Exam Neurological Exam: Alert, Awake, Oriented x3 Neuro motor strength exam: Left Upper Extremity: 4, Right Upper Extremity: 2/1, Left Lower Extremity: 4, Right Lower Extremity: 2/1 Additional comments: Alert, oriented in all spheres, follows commands. Assessment and Plan (1) CVA (cerebral vascular accident) Assessment & Plan: Case discussed with Dr. Kevin, continue all current medical, physical, occupational, and speech therapies. Recommend 0.9 NS at 100 ml/hr fr 6 pm to 6 am at nighttime to assist with orthostatic hypotension during daytime. [place] [facility] [place]. If the echocardiogram done in [facility] , EF is below 60 % to do Normal at 50 ml/hr for 12 hours at time time. Recommend to treat any underlying cause of elevated WBC, keep head of bed elevated at least 30 degrees for brain perfusion. Status: Acute
--- NOTE | 2017-07-07 14:43 | CP.PCM.PN ---
Subjective - Date & Time of Evaluation Date of Evaluation: 07/07/17 Time of Evaluation: 14:42 - Subjective Subjective: pt doing well no complaints at this time denies cp sob n/v/c/d hd stable nad Objective - Vital Signs/Intake and Output Vital Signs (last 24 hours): Temp Pulse Resp BP Pulse Ox 97.9 F 73 20 104/55 L 99 07/07/17 07:41 07/07/17 07:41 07/07/17 07:41 07/07/17 11:59 07/07/17 07:41 Intake and Output: 07/07/17 07/07/17 06:59 18:59 Intake Total 350 Output Total 1000 Balance -650 - Medications Medications: Current Medications Amlodipine Besylate (Norvasc) 10 mg PO DAILY [facility] Aspirin (Ecotrin) 81 mg PO DAILY [facility] Last Admin: 07/07/17 08:51 Dose: 81 mg Atorvastatin Calcium (Lipitor) 80 mg PO HS [facility] Last Admin: 07/06/17 21:42 Dose: 80 mg Ferrous Sulfate (Feosol Liq) 300 mg PO DAILY [facility] Last Admin: 07/07/17 08:51 Dose: 300 mg Finasteride (Proscar) 5 mg PO DAILY [facility] Last Admin: 07/07/17 08:51 Dose: 5 mg Sodium Chloride (Sodium Chloride 0.9%) 1,000 mls @ 100 mls/hr IV .Q10H [facility] Stop: 07/08/17 06:00 Levetiracetam (Keppra) 500 mg PO BID [facility] Last Admin: 07/07/17 08:51 Dose: 500 mg Tamsulosin HCl (Flomax) 0.4 mg PO DAILY@1999 [facility] Last Admin: 07/06/17 21:42 Dose: 0.4 mg - Labs Labs: 07/05/17 08:00 07/05/17 08:00 PT 13.0 Seconds (9.8-13.1) 07/04/17 05:25 INR 1.2 (0.9-1.2) 07/04/17 05:25 APTT 30.3 Seconds (25.6-37.1) 07/04/17 05:25 - Head Exam Additional comments: Vitals Reviewed GEN: WDWN, alert, cooperative HEENT: NCAT, PERRL, EOMI HEART: RRR, +S1S2, NO MRG LUNG: CTAB, NO WRR ABD: soft, NT, ND, No HSM, No masses EXT: normal pedal pulses, normal capillary refill NEURO: awake, alert SKIN: warm, dry PSYCH: normal mood, normal affect Assessment and Plan - Assessment and Plan (Free Text) Plan: 77 years old male admitted to the [facility] on 06/23/17 with right side weakness and diagnosed with Acute CVA. While there he had Hematuria and CT abdomen/Pelvis showed a Pelvic mass. Cystoscopy was done with Evacuation of clots and fulguration of prostate bleeding. he received 7 units of PRBC and 2 FFP with 1 Platelet At present the patient is still with Dysarthria, weakness to the right upper and lower extremities with fontenot catheter in place having clear urine. #. Acute CVA - Consult Dr Prabhakar Pediatric Occupational Therapist - Consult Dr Bender Neurology - ASA - lipitor - PT/OT - Speech Therapy #. Orthostatic Hypotension - fluids overnight at 100cc/hr - Neuro consult appreciated and followed #. Bladder Mass with Hematuria s/p Cystoscopy and Bx - Maintain Fontenot catheter in place - To follow up with Dr Spangler Urology on discharge #. HTN - Amlodipine - follow Blood Pressures #. Blood Loss Anemia. patient was treated with blood transfusions and IV Venofer - Fesol BID #. The Patient is not Diabetic - HbA1c 4.6 - Accu Check for 1 more day then d/c if not elevated #. DVT Prophylaxis with SCD. no Anticoagulant for 2 weeks because of the severe hematuria #. Code Status: Full
[2017-07-07 17:21] LABS: URINE BACTERIA RARE (<OCC); URINE BILIRUBIN NEGATIVE (NEGATIVE); URINE BLOOD MODERATE (NEGATIVE); URINE CLARITY SLIGHTY-CLOUDY (Clear); URINE COLOR YELLOW (YELLOW); URINE GLUCOSE (UA) NEG (Normal); URINE LEUKOCYTE ESTERASE TRACE Leu/uL (Negative); URINE PROTEIN 100 mg/dL (NEGATIVE); URINE UROBILINOGEN 0.2-1.0 mg/dL (0.2-1.0)
[2017-07-07] MEDS: Sodium Chloride 0.9% 1,000 ML IV SCH (17:26)
[2017-07-08] MEDS: Sodium Chloride 0.9% 1,000 ML IV SCH ×2 (03:23→17:05)
[2017-07-08] MEDS: Ferrous Sulfate 300 mg/5 mL Liq UD PO SCH (08:34)
--- NOTE | 2017-07-08 08:46 | EEG ---
DATE: 07/07/2017 TECHNICAL INFORMATION: Electrodes were placed according to the 10-20 International electrode system by food technologist. Total of 23 electrodes (21 EEG and 2 EKG) were placed. EEG activity was digitally recorded referentially to P1/P2 or A1/A2 electrodes. Continuous monitoring with EEG was performed using digital analysis for spike detection. The [employer] spike and seizure detection algorithms were used for digital EEG analysis throughout the monitoring period to screen the EEG in real-time and minerva the data file with pointers to electrographic seizures and interictal discharges. EEG was screened for electrographic seizures and interictal discharges by a technologist. Physician, epileptologist reviewed detections as well as extensive random samples and whole EEG study in detail. Digital EEG Analysis: Was carried out including FFT (Fast Fourier Transform), R2D2 (Rhythmicity Run Detection and Display), Relative Asymmetry Spectrogram, and voltage plot by the [employer] Software. The qualitative EEG analysis and the voltage plot mapping were used for detection of foci of paroxysmal and abnormal electrical cortical activity. GENERAL DESCRIPTION: Background Rhythm: There is a well-formed, 8-10 Hz posterior dominant rhythm that is reactive, symmetric, and attenuates with eye opening. There was a normal amount of frontal beta noted bilaterally. There is no sleep recorded. ACTIVATION PROCEDURES: Photic stimulation: There is no driving noted. Hyperventilation: There is slowing noted that is self-remitted. ABNORMAL ACTIVITY: There are no focal epileptiform discharges noted. No clinical or subclinical seizures noted. IMPRESSION: This is a normal awake and drowsy EEG. Clinical correlation is required. Blade Kevin MD
--- NOTE | 2017-07-08 11:14 | CARD ---
APPROVED REPORT EKG Measurement Heart [id number] <Conclusion> Normal sinus rhythm Biatrial enlargement Abnormal ECG
--- NOTE | 2017-07-08 13:26 | PSY.TMCNF ---
Nursing - Vital Signs Vital Signs (Last 8 hours): Vital Signs 07/08/17 07/08/17 08:17 09:00 Temperature 97.5 F L 97.5 F L Pulse Rate 51 L 51 L Respiratory 19 19 Rate Blood Pressure 137/72 137/72 O2 Sat by Pulse 98 Oximetry Pain: 0 - Precautions: Precautions: Fall Prevention - Medications/Other Issues Comment: Orthostatic hypotension, UTI? - Consults Comment: Dr. Kevin - Wound Right Buttock Wound Type: Skin Tear Wound Stage: STAGE II Periwound: Reddened Dressing Changed: No Wound Primary Dressing Type: Allevyn - Toileting Toileting: Moderate Assistance - Bladder Management Bladder Pattern: Retention Voiding Method: Condom ([place]) Catheter Bladder Management: Maximal Assistance - Bowel Management Bowel Pattern: Incontinent Bowel Management: Moderate Assistance - Transfers Transfers: Moderate Assistance - ADL's ADL's: Moderate Assistance - Pain Management Comments: Denies pain - Patient/Family Teaching Comments: Post CVA care, infection control - Goals/Time Frame Comments: Per Multidisciplinary team Physical Therapy - Bed Mobility Bed Mobility: Verbal Cues, Minimal Assistance, Moderate Assistance - Transfers Sit to Stand: Verbal Cues, Minimal Assistance, Moderate Assistance - Ambulation Level of Assistance: Verbal Cues, Moderate Assistance Distance (ft.): 8 - Stair Negotiation Stairs: Level of Assistance: Not Tested - Standing Balance Static Stand: Minimal Assistance Dynamic Stand: Moderate Assistance - Pain Pain (assessed during therapy session): 0 - Insight/Carryover Insight/Carryover: Fair - Patient/Family Education Comment: safety, therapy schedule, therapy goals, mobility, attention to task, POC, stroke recovery - Assessment/Plan Assessment: Patient is a 77 yo male presenting to [facility] s/p acute CVA with R sided hemiparesis. Precautions: Falls, cardiac, R UE laptray , R isotoner glove as tolerated, R sided hemiparesis, impaired safety awareness. Pt presents with R sided hemipareis impaired R UE/LE ROM/strength/propiocpetion, R facial droop/dysarthria , ikpaired safety awareness impacting his ability to complete self care, transfers and mobility safely and effectively. Patient is limited by low BP and bouts of dizziness. patient able to complete transfers with mod A, ub self care with mod A and lb self are with max A. Reccommend skilled IP OT services 5-6x/week to max functional I with aforementioned defecits. - Goals Timeframe: 2 weeks Goals: mod I ub self care. mod I lb self care. mod I functional transfers. mod I feeding/grooming. mod I toileting tasks - Provider Therapist: Priscilla Bettencourt PT License Number: [id number] Occupational Therapy - Arousal/Attention/Orientation Patient Orientation: Person, Place, Time, Appropriate to Age, Appropriate to Situation - ADL/IADL Self Feeding: Supervision, Verbal Cues, Set-up Help Grooming: Minimal Assistance, Moderate Assistance Dressing-Upper Extremity: Minimal Assistance, Moderate Assistance Dressing-Lower Extremity: Maximum Assistance - Sitting Balance Static Sitting: Supervision Dynamic Sitting: Contact Guard Assist - Transfers Wheelchair to Bed Transfers: Moderate Assistance Toilet Transfers: Moderate Assistance, Maximum Assistance Comment: tub/shower transfer to be assessed - Wheelchair Management Level of Assistance: Maximum Assistance Distance (ft.): 50 - Upper Extremity Status Right Upper Extremity Comment: PROM WFL. AROM only noted in shoulder/elbow. Shoulder flexion 1/5 shoulder extension 1/5. shoulder adduction/abduction 2-/ 5. elbow flexion/extension 1/5. NO AROM IN WRIST/DIGITS AT THIS TIME Left Upper Extremity Comment: AROM WFL - Pain Pain (assessed during therapy session): 0 - Insight/Carryover Insight/Carryover: Fair - Patient/Family Education Comment: safety, therapy schedule, therapy goals, mobility, attention to task, POC, stroke recovery - Assessment/Plan Assessment: Patient is a 77 yo male presenting to [facility] s/p acute CVA with R sided hemiparesis. Precautions: Falls, cardiac, R UE laptray , R isotoner glove as tolerated, R sided hemiparesis, impaired safety awareness. Pt presents with R sided hemipareis impaired R UE/LE ROM/strength/propiocpetion, R facial droop/dysarthria , ikpaired safety awareness impacting his ability to complete self care, transfers and mobility safely and effectively. Patient is limited by low BP and bouts of dizziness. patient able to complete transfers with mod A, ub self care with mod A and lb self are with max A. Reccommend skilled IP OT services 5-6x/week to max functional I with aforementioned defecits. - Goals Timeframe: 2 weeks Goals: mod I ub self care. mod I lb self care. mod I functional transfers. mod I feeding/grooming. mod I toileting tasks - Provider Therapist: MANISHA Saxena License Number: [id number] Speech Therapy - Consult Information Patient on Program: Yes Medical Diagnosis: CVA Treatment Diagnosis: -mild-moderate receptive/moderate expressive aphasia. - moderate dysarthria. -mild oral dysphagia - Assessment Expressive Language Impairment: Moderate Receptive Language Impairment: Mild Speech/Articulation Impairment: Moderate Dysphagia/Swallowing Impairment: Mild - Plan Assessment: Patient is a 77 yo male presenting to [facility] acute CVA with R sided hemiparesis. Precautions: Falls, cardiac, R UE laptray , R isotoner glove as tolerated, R sided hemiparesis, impaired safety awareness. Pt presents with R sided hemipareis impaired R UE/LE ROM/strength/propiocpetion, R facial droop/dysarthria , ikpaired safety awareness impacting his ability to complete self care, transfers and mobility safely and effectively. Patient is limited by low BP and bouts of dizziness. patient able to complete transfers with mod A, ub self care with mod A and lb self are with max A. Reccommend skilled IP OT services 5-6x/week to max functional I with aforementioned defecits. - Provider Therapist: Sabrina Ferro License Number: [id number] Recreational Therapy - Participation Participation: Participates in Individual and/or Group Sessions - Attendance Attendance: 3-5 times per week - Activities Leisure Activities: Cards and Games - Socialization Level of Socialization: Initiates/interacts freely with care givers and peer - Assessment Assessment/Plan: Patient is a 77 yo male presenting to [facility] acute CVA with R sided hemiparesis. Precautions: Falls, cardiac, R UE laptray , R isotoner glove as tolerated, R sided hemiparesis, impaired safety awareness. Pt presents with R sided hemipareis impaired R UE/LE ROM/strength/propiocpetion, R facial droop/dysarthria , ikpaired safety awareness impacting his ability to complete self care, transfers and mobility safely and effectively. Patient is limited by low BP and bouts of dizziness. patient able to complete transfers with mod A, ub self care with mod A and lb self are with max A. Reccommend skilled IP OT services 5-6x/week to max functional I with aforementioned defecits. - Provider Therapist: Latonia Haskins, WATER POLLUTION SPECIALIST #[id number] Nutrition - Current Diet Current Diet/ Supplement/ Feedings: Moderate consistent CHO heart healthy thin liquids prostat sugar free 30 ml 1 per day - Appetite Percent Meal Consumed: 75-100% - Comments Comments: Post CVA care, infection control - Assessment/Goals/Time Frame Assessment/Goals/Time Frame: Orthostatic hypotension, UTI? - Provider Provider: Larissa Martinez RD Rehabilitation Plan - Treatment Plan Treatment Plan: Physical Therapy, Occupational Therapy, Speech, Dietary, Patient /Family Education - Discharge Plan Estimated Date of Discharge: 07/27/17 Discharge to: Subacute, [facility]
--- NOTE | 2017-07-08 13:39 | CARD ---
APPROVED REPORT EXAM: Two-dimensional and M-mode echocardiogram with Doppler and color Doppler. Other Information Quality : GoodRhythm : NSR INDICATION Syncope 2D DIMENSIONS IVSd0.98 (0.7-1.1cm)LVDd4.18 (3.9-5.9cm) LVOT Diameter2.38 (1.8-2.4cm)PWd1.00 (0.7-1.1cm) IVSs1.15 (0.8-1.2cm)LVDs2.87 (2.5-4.0cm) FS (%) 31.3 %PWs1.32 (0.8-1.2cm) M-Mode DIMENSIONS Left Atrium (MM)2.32 (2.5-4.0cm)IVSd1.38 (0.7-1.1cm) Aortic Root3.81 (2.2-3.7cm)LVDd4.19 (4.0-5.6cm) Aortic Cusp Exc.2.45 (1.5-2.0cm)PWd1.02 (0.7-1.1cm) IVSs1.38 cmFS (%) 39 % LVDs2.54 (2.0-3.8cm)PWs1.65 cm Mitral Valve MV E Dgysswgh75.7cm/sMV DECEL [id number] A Lmnrxozq65.8cm/s MV GJA49jkX/A ratio0.9MVA (PHT)4.82cm2 TDI Lateral E' Peak V10.02cm/sMedial E' Peak V8.23cm/sE/Lateral E'6.9 E/Medial E'8.3 Pulmonary Valve PV Peak Qkgsdpus12.7cm/s Tricuspid Valve TR Peak Nsyyphrm872nq/sRAP [id number] Peak Gr.26mmHg [id number] LEFT VENTRICLE The left ventricle is normal size. There is normal left ventricular wall thickness. Left ventricle systolic function is normal. The Ejection Fraction is 60-65%. There is normal LV segmental wall motion. Transmitral Doppler flow pattern is Grade I-abnormal relaxation pattern. RIGHT VENTRICLE The right ventricle is moderately dilated. The right ventricle is mildly to moderately hypertrophied. The right ventricular systolic function is normal. ATRIA The left atrium size is normal. The right atrium is moderately dilated. AORTIC VALVE The aortic valve is normal in structure. No aortic regurgitation is present. There is no aortic valvular stenosis. MITRAL VALVE The mitral valve is normal in structure. There is no evidence of mitral valve prolapse. There is no mitral valve stenosis. There is no mitral valve regurgitation noted. TRICUSPID VALVE The tricuspid valve is normal in structure. There is trace tricuspid regurgitation. Right ventricular systolic pressure is estimated at 36 mmHg. There is mild pulmonary hypertension. PULMONIC VALVE The pulmonary valve is normal in structure. There is no pulmonic valvular regurgitation. GREAT VESSELS The aortic root is mildly enlarged. The IVC is dilated. The IVC collapses <50% with inspiration. PERICARDIAL EFFUSION The pericardium appears normal. <Conclusion> The left ventricle is normal size. There is normal left ventricular wall thickness. There is normal LV segmental wall motion. Left ventricle systolic function is normal. The Ejection Fraction is 60-65%. Transmitral Doppler flow pattern is Grade I-abnormal relaxation pattern. The right ventricle is moderately dilated. The right ventricle is mildly to moderately hypertrophied. The right atrium is moderately dilated. The aortic root is mildly enlarged. The IVC is dilated. The IVC collapses <50% with inspiration. There is mild pulmonary hypertension.
--- NOTE | 2017-07-08 14:06 | CP.PCM.PN ---
Subjective - Date & Time of Evaluation Date of Evaluation: 07/08/17 Time of Evaluation: 14:05 - Subjective Subjective: Patient seen in the room comfortable denies pain no sob feels happy with progress and care to this point excellent acute rehab candidate ANICETO 07/27/17 continue current care Objective - Vital Signs/Intake and Output Vital Signs (last 24 hours): Temp Pulse Resp BP Pulse Ox 97.5 F L 51 L 19 137/72 98 07/08/17 09:00 07/08/17 09:00 07/08/17 09:00 07/08/17 09:00 07/08/17 08:17 Intake and Output: 07/08/17 07/08/17 06:59 18:59 Intake Total 1700 Output Total 1200 Balance 500 - Medications Medications: Current Medications Amlodipine Besylate (Norvasc) 10 mg PO DAILY [facility] Aspirin (Ecotrin) 81 mg PO DAILY [facility] Last Admin: 07/08/17 08:34 Dose: 81 mg Atorvastatin Calcium (Lipitor) 80 mg PO HS [facility] Last Admin: 07/07/17 21:34 Dose: 80 mg Ferrous Sulfate (Feosol Liq) 300 mg PO DAILY [facility] Last Admin: 07/08/17 08:34 Dose: 300 mg Finasteride (Proscar) 5 mg PO DAILY [facility] Last Admin: 07/08/17 08:34 Dose: 5 mg Sodium Chloride (Sodium Chloride 0.9%) 1,000 mls @ 100 mls/hr IV .Q10H [facility] Stop: 07/09/17 06:00 Levetiracetam (Keppra) 500 mg PO BID [facility] Last Admin: 07/08/17 08:34 Dose: 500 mg Tamsulosin HCl (Flomax) 0.4 mg PO Q12 [facility] - Labs Labs: 07/05/17 08:00 07/05/17 08:00 PT 13.0 Seconds (9.8-13.1) 07/04/17 05:25 INR 1.2 (0.9-1.2) 07/04/17 05:25 APTT 30.3 Seconds (25.6-37.1) 07/04/17 05:25
[2017-07-09] MEDS: Sodium Chloride 0.9% 1,000 ML IV SCH (04:00)
[2017-07-09 06:13] LABS: HEMOGLOBIN 10.4 g/dL (12.0-18.0); MEAN CELL VOLUME 87.8 fl (80.0-94.0); MEAN CORPUSCULAR HEMOGLOBIN 28.6 pg (27.0-31.0); MEAN CORPUSCULAR HGB CONC 32.6 g/dL (33.0-37.0); RBC 3.62 Mil/uL (4.40-5.90); RED CELL DISTRIBUTION WIDTH 15.4 % (11.5-14.5); WHITE BLOOD COUNT 6.2 K/uL (4.8-10.8)
[2017-07-09 06:24] LABS: BLOOD UREA NITROGEN 16 mg/dl (9-20); CALCIUM 7.9 mg/dL (8.4-10.2); GFR AFRICAN-AMERICAN > 60; GFR NON-AFRICAN AMERICAN > 60
[2017-07-09] MEDS: Ferrous Sulfate 300 mg/5 mL Liq UD PO SCH (09:33)
--- NOTE | 2017-07-09 12:36 | CP.PCM.PN ---
Subjective - Date & Time of Evaluation Date of Evaluation: 07/09/17 Time of Evaluation: 12:35 - Subjective Subjective: Mr. Marino was seen and examined at the bedside. He is alert, oriented with slurred speech with right facial droop and right side weakness.He denies any headache but claims of dizziness with change of position. His systolic blood pressure was at 70's this morning on standing position. At present, he is alert , able to recall the morning incident, and able to follow simple commands.He is able to tolerate PO intake. Objective - Vital Signs/Intake and Output Vital Signs (last 24 hours): Temp Pulse Resp BP Pulse Ox 97.5 F L 94 H 19 101/49 L 96 07/09/17 10:00 07/09/17 10:00 07/09/17 10:00 07/09/17 10:00 07/09/17 10:00 Intake and Output: 07/09/17 07/09/17 06:59 18:59 Intake Total 1650 Output Total 1400 Balance 250 - Medications Medications: Current Medications Amlodipine Besylate (Norvasc) 10 mg PO DAILY [facility] Aspirin (Ecotrin) 81 mg PO DAILY [facility] Last Admin: 07/09/17 09:33 Dose: 81 mg Atorvastatin Calcium (Lipitor) 80 mg PO HS [facility] Last Admin: 07/08/17 21:15 Dose: 80 mg Ferrous Sulfate (Feosol Liq) 300 mg PO DAILY [facility] Last Admin: 07/09/17 09:33 Dose: 300 mg Finasteride (Proscar) 5 mg PO DAILY [facility] Last Admin: 07/09/17 09:34 Dose: 5 mg Levetiracetam (Keppra) 500 mg PO BID [facility] Last Admin: 07/09/17 09:33 Dose: 500 mg Midodrine (Proamatine) 5 mg PO TID [facility] Tamsulosin HCl (Flomax) 0.4 mg PO DAILY@2100 [facility] - Labs Labs: 07/09/17 05:30 07/09/17 05:30 PT 13.0 Seconds (9.8-13.1) 07/04/17 05:25 INR 1.2 (0.9-1.2) 07/04/17 05:25 APTT 30.3 Seconds (25.6-37.1) 07/04/17 05:25 - Constitutional Appears: No Acute Distress - Head Exam Head Exam: NORMAL INSPECTION - Eye Exam Pupil Exam: PERRL - Neurological Exam Neurological Exam: Alert, Awake Neuro motor strength exam: Left Upper Extremity: 5, Right Upper Extremity: 2/1, Left Lower Extremity: 5, Right Lower Extremity: 2/1 Additional comments: alert, oriented follows simple commands. Assessment and Plan (1) CVA (cerebral vascular accident) Assessment & Plan: Case discussed with Dr. Lake, continue all current medical, physical, occupational, and speech therapies. Recommend midodrine 5 mg PO Q 8 hours. Recommend glycemic control, hydration. Status: Acute
--- NOTE | 2017-07-09 14:13 | CP.PCM.PN ---
Subjective - Date & Time of Evaluation Date of Evaluation: 07/09/17 Time of Evaluation: 14:11 - Subjective Subjective: pt doing well, tolerating pT +orthostatic hypotension decrease flomax start midodrine stable nad Objective - Vital Signs/Intake and Output Vital Signs (last 24 hours): Temp Pulse Resp BP Pulse Ox 97.5 F L 94 H 19 101/49 L 96 07/09/17 10:00 07/09/17 10:00 07/09/17 10:00 07/09/17 10:00 07/09/17 10:00 Vitals Reviewed GEN: WDWN, alert, cooperative HEENT: NCAT, PERRL, EOMI HEART: RRR, +S1S2, NO MRG LUNG: CTAB, NO WRR ABD: soft, NT, ND, No HSM, No masses EXT: normal pedal pulses, normal capillary refill NEURO: awake, alert SKIN: warm, dry PSYCH: normal mood, normal affect Intake and Output: 07/09/17 07/09/17 06:59 18:59 Intake Total 1650 Output Total 1400 Balance 250 - Medications Medications: Current Medications Amlodipine Besylate (Norvasc) 10 mg PO DAILY [facility] Aspirin (Ecotrin) 81 mg PO DAILY [facility] Last Admin: 07/09/17 09:33 Dose: 81 mg Atorvastatin Calcium (Lipitor) 80 mg PO HS [facility] Last Admin: 07/08/17 21:15 Dose: 80 mg Ferrous Sulfate (Feosol Liq) 300 mg PO DAILY [facility] Last Admin: 07/09/17 09:33 Dose: 300 mg Finasteride (Proscar) 5 mg PO DAILY [facility] Last Admin: 07/09/17 09:34 Dose: 5 mg Levetiracetam (Keppra) 500 mg PO BID [facility] Last Admin: 07/09/17 09:33 Dose: 500 mg Midodrine (Proamatine) 5 mg PO Q8 [facility] Tamsulosin HCl (Flomax) 0.4 mg PO DAILY@2100 [facility] - Labs Labs: 07/09/17 05:30 07/09/17 05:30 PT 13.0 Seconds (9.8-13.1) 07/04/17 05:25 INR 1.2 (0.9-1.2) 07/04/17 05:25 APTT 30.3 Seconds (25.6-37.1) 07/04/17 05:25 Assessment and Plan - Assessment and Plan (Free Text) Plan: 77 years old male admitted to the [facility] on 06/23/17 with right side weakness and diagnosed with Acute CVA. While there he had Hematuria and CT abdomen/Pelvis showed a Pelvic mass. Cystoscopy was done with Evacuation of clots and fulguration of prostate bleeding. he received 7 units of PRBC and 2 FFP with 1 Platelet At present the patient is still with Dysarthria, weakness to the right upper and lower extremities with fontenot catheter in place having clear urine. #. Acute CVA - Consult Dr Prabhakar Aids Nurse - Consult Dr Bender Neurology - ASA - lipitor - PT/OT - Speech Therapy #. Orthostatic Hypotension - fluids overnight at 100cc/hr, discontinue - start Midodrine, d/c flomxa to once a day - Neuro consult appreciated and followed #. Bladder Mass with Hematuria s/p Cystoscopy and Bx - Maintain Fontenot catheter in place - To follow up with Dr Spangler Urology on discharge #. HTN - Amlodipine - follow Blood Pressures #. Blood Loss Anemia. patient was treated with blood transfusions and IV Venofer - Fesol BID #. The Patient is not Diabetic - HbA1c 4.6 - Accu Check for 1 more day then d/c if not elevated #. DVT Prophylaxis with SCD. no Anticoagulant for 2 weeks because of the severe hematuria #. Code Status: Full
[2017-07-10 06:22] LABS: HEMOGLOBIN 10.5 g/dL (12.0-18.0); MEAN CELL VOLUME 87.2 fl (80.0-94.0); MEAN CORPUSCULAR HEMOGLOBIN 29.1 pg (27.0-31.0); MEAN CORPUSCULAR HGB CONC 33.3 g/dL (33.0-37.0); RBC 3.6 Mil/uL (4.40-5.90); RED CELL DISTRIBUTION WIDTH 16.2 % (11.5-14.5); WHITE BLOOD COUNT 5.9 K/uL (4.8-10.8)
[2017-07-10] MEDS: Ferrous Sulfate 300 mg/5 mL Liq UD PO SCH (08:46)
--- NOTE | 2017-07-10 10:22 | CP.PCM.PN ---
Subjective - Date & Time of Evaluation Date of Evaluation: 07/10/17 Time of Evaluation: 10:22 - Subjective Subjective: Mr. Marino was seen and examined at the bedside. He is alert, oriented with slurred speech with right facial droop and right side weakness.He denies any headache but claims of dizziness with change of position. His systolic blood pressure was at 130's this morning on supine position. At present, he is alert, able to recall the morning incident, and able to follow simple commands.He is able to tolerate PO intake. There was no untoward events overnight. Objective - Vital Signs/Intake and Output Vital Signs (last 24 hours): Temp Pulse Resp BP Pulse Ox 97.9 F 78 20 132/70 98 07/09/17 20:22 07/09/17 20:22 07/09/17 20:22 07/09/17 20:22 07/09/17 20:22 Intake and Output: 07/10/17 07/10/17 06:59 18:59 Intake Total 350 Output Total 850 Balance -500 - Medications Medications: Current Medications Amlodipine Besylate (Norvasc) 10 mg PO DAILY [facility] Aspirin (Ecotrin) 81 mg PO DAILY [facility] Last Admin: 07/10/17 08:47 Dose: 81 mg Atorvastatin Calcium (Lipitor) 80 mg PO HS [facility] Last Admin: 07/09/17 21:59 Dose: 80 mg Ferrous Sulfate (Feosol Liq) 300 mg PO DAILY [facility] Last Admin: 07/10/17 08:46 Dose: 300 mg Finasteride (Proscar) 5 mg PO DAILY [facility] Last Admin: 07/10/17 08:46 Dose: 5 mg Levetiracetam (Keppra) 500 mg PO BID [facility] Last Admin: 07/10/17 08:46 Dose: 500 mg Midodrine (Proamatine) 5 mg PO Q8 [facility] Last Admin: 07/10/17 06:36 Dose: 5 mg Tamsulosin HCl (Flomax) 0.4 mg PO DAILY@2100 [facility] - Labs Labs: 07/10/17 05:35 07/09/17 05:30 PT 13.0 Seconds (9.8-13.1) 07/04/17 05:25 INR 1.2 (0.9-1.2) 07/04/17 05:25 APTT 30.3 Seconds (25.6-37.1) 07/04/17 05:25 - Constitutional Appears: No Acute Distress - Head Exam Head Exam: NORMAL INSPECTION - Eye Exam Pupil Exam: PERRL - Neurological Exam Neurological Exam: Alert, Awake, Oriented x3 Neuro motor strength exam: Left Upper Extremity: 5, Right Upper Extremity: 2/1, Left Lower Extremity: 5, Right Lower Extremity: 2/1 Additional comments: Neurological unchanged from previous examination. Assessment and Plan (1) CVA (cerebral vascular accident) Assessment & Plan: Case discussed with Dr. Lake, continue all current medical, physical, occupational, and speech therapies. Recommend glycemic control, hydration. Status: Acute
--- NOTE | 2017-07-10 14:49 | CP.PCM.PN ---
Subjective - Date & Time of Evaluation Date of Evaluation: 07/10/17 Time of Evaluation: 14:48 - Subjective Subjective: Patient seen in PT discussed with staff no SOB/CP feels that he is progressing therapist notes improved function and gait remains excellent acute rehab candidate Objective - Vital Signs/Intake and Output Vital Signs (last 24 hours): Temp Pulse Resp BP Pulse Ox 98 F 78 20 115/61 98 07/10/17 10:00 07/10/17 10:00 07/10/17 10:00 07/10/17 14:20 07/10/17 10:00 Intake and Output: 07/10/17 07/10/17 06:59 18:59 Intake Total 350 Output Total 850 Balance -500 - Medications Medications: Current Medications Amlodipine Besylate (Norvasc) 10 mg PO DAILY [facility] Aspirin (Ecotrin) 81 mg PO DAILY [facility] Last Admin: 07/10/17 08:47 Dose: 81 mg Atorvastatin Calcium (Lipitor) 80 mg PO HS [facility] Last Admin: 07/09/17 21:59 Dose: 80 mg Ferrous Sulfate (Feosol Liq) 300 mg PO DAILY [facility] Last Admin: 07/10/17 08:46 Dose: 300 mg Finasteride (Proscar) 5 mg PO DAILY [facility] Last Admin: 07/10/17 08:46 Dose: 5 mg Levetiracetam (Keppra) 500 mg PO BID [facility] Last Admin: 07/10/17 08:46 Dose: 500 mg Midodrine (Proamatine) 5 mg PO Q8 [facility] Last Admin: 07/10/17 13:12 Dose: 5 mg Tamsulosin HCl (Flomax) 0.4 mg PO DAILY@2100 [facility] - Labs Labs: 07/10/17 05:35 07/09/17 05:30 PT 13.0 Seconds (9.8-13.1) 07/04/17 05:25 INR 1.2 (0.9-1.2) 07/04/17 05:25 APTT 30.3 Seconds (25.6-37.1) 07/04/17 05:25
[2017-07-11] MEDS: Ferrous Sulfate 300 mg/5 mL Liq UD PO SCH (08:33)
--- NOTE | 2017-07-11 10:55 | CP.PCM.PN ---
Subjective - Date & Time of Evaluation Date of Evaluation: 07/11/17 Time of Evaluation: 10:55 - Subjective Subjective: Mr. Marino was seen and examined at the bedside. He is alert, oriented with slurred speech with right facial droop and right side weakness.He denies any headache but claims of dizziness with change of position. His systolic blood pressure was at 130's this morning on supine position. At present, he is able to participate during his speech therapy session and able to follow simple commands.He is able to tolerate PO intake. He had episode of hematuria yesterday afternoon, urologist was notified. Today his fontenot is steve colored with no clots noted. There was no untoward events overnight. Objective - Vital Signs/Intake and Output Vital Signs (last 24 hours): Temp Pulse Resp BP Pulse Ox 96.9 F L 70 20 136/74 97 07/10/17 21:03 07/10/17 21:03 07/10/17 21:03 07/10/17 21:03 07/10/17 21:03 Intake and Output: 07/11/17 07/11/17 06:59 18:59 Intake Total 350 Output Total 650 Balance -300 - Medications Medications: Current Medications Amlodipine Besylate (Norvasc) 10 mg PO DAILY [facility] Aspirin (Ecotrin) 81 mg PO DAILY [facility] Last Admin: 07/11/17 08:33 Dose: 81 mg Atorvastatin Calcium (Lipitor) 80 mg PO HS [facility] Last Admin: 07/10/17 21:36 Dose: 80 mg Ferrous Sulfate (Feosol Liq) 300 mg PO DAILY [facility] Last Admin: 07/11/17 08:33 Dose: 300 mg Finasteride (Proscar) 5 mg PO DAILY [facility] Last Admin: 07/11/17 08:33 Dose: 5 mg Levetiracetam (Keppra) 500 mg PO BID [facility] Last Admin: 07/11/17 08:33 Dose: 500 mg Midodrine (Proamatine) 5 mg PO Q8 [facility] Last Admin: 07/11/17 06:00 Dose: 5 mg Tamsulosin HCl (Flomax) 0.4 mg PO DAILY@2100 [facility] Last Admin: 07/10/17 21:36 Dose: 0.4 mg - Labs Labs: 07/10/17 05:35 07/09/17 05:30 PT 13.0 Seconds (9.8-13.1) 07/04/17 05:25 INR 1.2 (0.9-1.2) 07/04/17 05:25 APTT 30.3 Seconds (25.6-37.1) 07/04/17 05:25 - Constitutional Appears: No Acute Distress - Head Exam Head Exam: NORMAL INSPECTION - Eye Exam Pupil Exam: PERRL - Neurological Exam Neurological Exam: Alert, Awake, Oriented x3 Neuro motor strength exam: Left Upper Extremity: 5, Right Upper Extremity: 2/1, Left Lower Extremity: 5, Right Lower Extremity: 2/1 Additional comments: Neurological unchanged from previous examination. Assessment and Plan (1) CVA (cerebral vascular accident) Assessment & Plan: Case discussed with Dr. Lake, continue all current medical, physical, occupational, and speech therapies. Recommend glycemic control, hydration, and monitor s/s of bleeding since patient is receiving antiplate. Status: Acute
[2017-07-11] MEDS ORDERED: Iohexol 300 100 ML IJ ONE (12:25)
[2017-07-11] MEDS ORDERED: Sodium Chloride 0.9% 50 ML IV ONE (12:26)
--- NOTE | 2017-07-11 13:09 | CT ---
PROCEDURE: CT Abdomen and Pelvis with and without intravenous contrast HISTORY: Pelvic mass COMPARISON: None. TECHNIQUE: Axial images of the abdomen were obtained in the pre contrast, portal venous phase of enhancement. Coronal and sagittal reformats were generated. Contrast dose: 100 mL Omnipaque 300 Radiation dose: Total exam DLP = 418.33 mGy-cm. This CT exam was performed using one or more of the following dose reduction techniques: Automated exposure control, adjustment of the mA and/or kV according to patient size, and/or use of iterative reconstruction technique. FINDINGS: LOWER THORAX: There is subsegmental atelectasis in the lung bases.There is a small right pleural effusion. LIVER: Normal in size. There are few scattered low-attenuation lesions in the liver, too small to characterize by CT criteria. No ductal dilatation. GALLBLADDER AND BILE DUCTS: Contracted. PANCREAS: Normal in size with homogeneous enhancement. No gross lesion or ductal dilatation. SPLEEN: Normal in size and appearance. ADRENALS: No discrete nodule. KIDNEYS AND URETERS: Normal in size with homogeneous enhancement. The left kidney is mild rotated. No hydronephrosis. No solid mass. VASCULATURE: No aortic aneurysm. BOWEL: The small bowel loops are normal in caliber. There is large amount of stool in the colon. No bowel dilatation or obstruction. APPENDIX: No inflammatory changes in the right lower quadrant. PERITONEUM: No free fluid. No free air. LYMPH NODES: No enlarged lymph nodes. BLADDER: There is severe circumferential mural thickening of the urinary bladder wall. There is a indwelling Robles catheter with decompression of the urinary bladder. REPRODUCTIVE: There is moderate enlargement of the prostate gland. BONES: No acute fracture. Within normal limits for the patient's age. OTHER FINDINGS: None. IMPRESSION: 1. Moderate enlargement of the prostate gland and severe circumferential mural thickening of the urinary bladder wall which may be related to bladder outlet obstruction and/or cystitis. No evidence of bulky pelvic mass although examination is limited due to lack of intraperitoneal fat. 2. Severe constipation. 3. Small low-density lesions in the liver are too small to characterize by CT criteria.
--- NOTE | 2017-07-11 15:04 | CP.PCM.PN ---
Subjective - Date & Time of Evaluation Date of Evaluation: 07/11/17 Time of Evaluation: 13:00 - Subjective Subjective: Patient seen and examined. Denied any complaint but wanted catheter to be pulled out. Objective - Vital Signs/Intake and Output Vital Signs (last 24 hours): Temp Pulse Resp BP Pulse Ox 96.9 F L 70 20 136/74 97 07/10/17 21:03 07/10/17 21:03 07/10/17 21:03 07/10/17 21:03 07/10/17 21:03 Intake and Output: 07/11/17 07/11/17 06:59 18:59 Intake Total 350 Output Total 650 Balance -300 - Medications Medications: Current Medications Amlodipine Besylate (Norvasc) 10 mg PO DAILY [facility] Aspirin (Ecotrin) 81 mg PO DAILY [facility] Last Admin: 07/11/17 08:33 Dose: 81 mg Atorvastatin Calcium (Lipitor) 80 mg PO HS [facility] Last Admin: 07/10/17 21:36 Dose: 80 mg Ferrous Sulfate (Feosol Liq) 300 mg PO DAILY [facility] Last Admin: 07/11/17 08:33 Dose: 300 mg Finasteride (Proscar) 5 mg PO DAILY [facility] Last Admin: 07/11/17 08:33 Dose: 5 mg Levetiracetam (Keppra) 500 mg PO BID [facility] Last Admin: 07/11/17 08:33 Dose: 500 mg Midodrine (Proamatine) 5 mg PO Q8 [facility] Last Admin: 07/11/17 06:00 Dose: 5 mg Tamsulosin HCl (Flomax) 0.4 mg PO DAILY@2100 [facility] Last Admin: 07/10/17 21:36 Dose: 0.4 mg - Labs Labs: 07/10/17 05:35 07/09/17 05:30 PT 13.0 Seconds (9.8-13.1) 07/04/17 05:25 INR 1.2 (0.9-1.2) 07/04/17 05:25 APTT 30.3 Seconds (25.6-37.1) 07/04/17 05:25 - Constitutional Appears: No Acute Distress - Head Exam Head Exam: ATRAUMATIC - Eye Exam Eye Exam: absent: Scleral icterus - ENT Exam ENT Exam: Mucous Membranes Moist - Neck Exam Neck Exam: absent: Meningismus - Respiratory Exam Respiratory Exam: absent: Rales, Rhonchi, Wheezes, Respiratory Distress - Cardiovascular Exam Cardiovascular Exam: REGULAR RHYTHM, +S1, +S2 - GI/Abdominal Exam GI & Abdominal Exam: Soft. 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 Hospital stay was complicated with hematuria. CT scan of Abdomen/Pelvis showed a "Pelvic mass". Cystoscopy with evacuation of clots and fulguration of prostate bleeding was done by Dr Nettie Hernandez, urologist. Patient also received 7 units of PRBC and 2 units of FFP plus 1 unit of Platelet. Indwelling catheter was left in place until patient was transferred to Acute Rehab for continuation of PT/OT. 1. 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 Hematuria patient continue to have on and off hematuria sometimes with clotted blood Bladder mass were noted on CT scan of Abd/Pelvis done at [facility] CT scan of Abd/Pelvis with/without IV contrast: showed no pelvic mass but has severe mural thickening of the bladder wall and moderate enlargement of the prostate gland Dr Nettie Hernandez, who is remotely following the patient and who requested the repeat scan made aware of the result. He advised to keep the indwelling catheter until the patient is able to ambulate Dr Nettie Hernandez [phone] 3. Orthostatic Hypotension continue Midodrine Flomax cut down to once a day 4. HTN BP stable continue Amlodipine 10mg PO daily 5. Blood Loss Anemia received Venofer and 7 units of PRBC continue Fesol PO BID 6. DVT prophylaxis anticoagulant and anti-platelets on hold because of hematuria venodyne boots while in bed
[2017-07-12 06:33] LABS: BASO # 0.1 K/uL (0.0-0.2); BASO % 1.1 % (0.0-2.0); EOS % 0.7 % (0.0-4.0); HEMOGLOBIN 10.4 g/dL (12.0-18.0); LYMPH # 0.8 K/uL (1.0-4.3); LYMPH % 13.6 % (20.0-40.0); MEAN CELL VOLUME 86.6 fl (80.0-94.0); MEAN CORPUSCULAR HEMOGLOBIN 28.6 pg (27.0-31.0); MEAN PLATELET VOLUME 6.6 fl (7.2-11.7); MONO # 0.6 K/uL (0.0-0.8); MONO % 10.1 % (0.0-10.0); NEUT # 4.2 K/uL (1.8-7.0); NEUT % 74.5 % (50.0-75.0); RBC 3.63 Mil/uL (4.40-5.90); RED CELL DISTRIBUTION WIDTH 15.6 % (11.5-14.5); WHITE BLOOD COUNT 5.6 K/uL (4.8-10.8)
[2017-07-12] MEDS: Ferrous Sulfate 300 mg/5 mL Liq UD PO SCH (08:52)
[2017-07-12 09:41] LABS: TOTAL PSA 18.9 ng/mL (< or = 4.0)
--- NOTE | 2017-07-12 19:43 | CP.PCM.PN ---
Subjective - Date & Time of Evaluation Date of Evaluation: 07/12/17 Time of Evaluation: 19:42 - Subjective Subjective: Patient seen in the room denies sob/cp afebrile fontenot draining cloudy urine no pain working hard in therapies but still limited continue current care Objective - Vital Signs/Intake and Output Vital Signs (last 24 hours): Temp Pulse Resp BP Pulse Ox 97.4 F L 82 18 150/90 96 07/12/17 08:13 07/12/17 08:13 07/12/17 08:13 07/12/17 08:13 07/12/17 08:13 Intake and Output: 07/12/17 07/13/17 18:59 06:59 Intake Total 900 Output Total 1300 Balance -400 - Medications Medications: Current Medications Amlodipine Besylate (Norvasc) 10 mg PO DAILY [facility] Aspirin (Ecotrin) 81 mg PO DAILY [facility] Last Admin: 07/12/17 10:00 Dose: 81 mg Atorvastatin Calcium (Lipitor) 80 mg PO HS [facility] Last Admin: 07/11/17 21:20 Dose: 80 mg Ciprofloxacin (Cipro) 500 mg PO Q12 [facility] PRN Reason: Protocol Last Admin: 07/12/17 08:52 Dose: 500 mg Ferrous Sulfate (Feosol Liq) 300 mg PO DAILY [facility] Last Admin: 07/12/17 08:52 Dose: 300 mg Finasteride (Proscar) 5 mg PO DAILY [facility] Last Admin: 07/12/17 08:53 Dose: 5 mg Levetiracetam (Keppra) 500 mg PO BID [facility] Last Admin: 07/12/17 17:28 Dose: 500 mg Midodrine (Proamatine) 5 mg PO Q8 [facility] Last Admin: 07/12/17 14:13 Dose: 5 mg Tamsulosin HCl (Flomax) 0.4 mg PO DAILY@2100 [facility] Last Admin: 07/11/17 21:20 Dose: 0.4 mg - Labs Labs: 07/12/17 06:00 07/09/17 05:30 PT 13.0 Seconds (9.8-13.1) 07/04/17 05:25 INR 1.2 (0.9-1.2) 07/04/17 05:25 APTT 30.3 Seconds (25.6-37.1) 07/04/17 05:25
[2017-07-13] MEDS: Ferrous Sulfate 300 mg/5 mL Liq UD PO SCH (08:59)
[2017-07-14] MEDS: Ferrous Sulfate 300 mg/5 mL Liq UD PO SCH (09:02)
--- NOTE | 2017-07-14 11:55 | CP.PCM.PN ---
Subjective - Date & Time of Evaluation Date of Evaluation: 07/14/17 Time of Evaluation: 11:00 - Subjective Subjective: Patient is doing well today. OOB in wheelchair. No new complaints. 2 way fontenot intact and draining tea colored urine. No further episodes of clots. Objective - Vital Signs/Intake and Output Vital Signs (last 24 hours): Temp Pulse Resp BP Pulse Ox 96.8 F L 82 20 146/84 97 07/14/17 08:00 07/14/17 08:00 07/14/17 08:00 07/14/17 08:00 07/14/17 08:00 Intake and Output: 07/14/17 07/14/17 06:59 18:59 Intake Total 400 Output Total 600 Balance -200 - Medications Medications: Current Medications Amlodipine Besylate (Norvasc) 10 mg PO DAILY [facility] Aspirin (Ecotrin) 81 mg PO DAILY [facility] Last Admin: 07/14/17 09:03 Dose: 81 mg Atorvastatin Calcium (Lipitor) 80 mg PO HS [facility] Last Admin: 07/13/17 21:40 Dose: 80 mg Ciprofloxacin (Cipro) 500 mg PO Q12 [facility] PRN Reason: Protocol Ferrous Sulfate (Feosol Liq) 300 mg PO DAILY [facility] Last Admin: 07/14/17 09:02 Dose: 300 mg Finasteride (Proscar) 5 mg PO DAILY [facility] Last Admin: 07/14/17 09:03 Dose: 5 mg Levetiracetam (Keppra) 500 mg PO BID [facility] Last Admin: 07/14/17 09:03 Dose: 500 mg Midodrine (Proamatine) 5 mg PO Q8 [facility] Last Admin: 07/14/17 06:11 Dose: 5 mg Tamsulosin HCl (Flomax) 0.4 mg PO DAILY@2100 [facility] Last Admin: 07/13/17 21:40 Dose: 0.4 mg - Labs Labs: 07/12/17 06:00 07/09/17 05:30 PT 13.0 Seconds (9.8-13.1) 07/04/17 05:25 INR 1.2 (0.9-1.2) 07/04/17 05:25 APTT 30.3 Seconds (25.6-37.1) 07/04/17 05:25 - Additional Findings Additional findings: Physical exam: Constitutional- cooperative, awake, alert Head- NCAT, PERRL Eye- PERRL, EOMI ENT- normal exam, MMM. Neck- normal inspection, supple, no JVD Respiratory- CTAB, no wheezes rales rhonchi Cardiovascular- RRR, +S1, +S2 no MRG GI/Abdominal- normal bowel sounds, soft, no mass, no hsm Skin- warm, dry Extremities Exam- normal capillary refill, normal inspection Neurological Exam- alert, awake, oriented Psych- normal mood, normal affect Assessment and Plan - Assessment and Plan (Free Text) Plan: Assessment: 77 yo male admitted to the [facility] on 06/23/17 because of Acute CVA with right facial droop and right sided weakness. Hospital stay was complicated with hematuria. CT scan of Abdomen/Pelvis showed a "Pelvic mass". Cystoscopy with evacuation of clots and fulguration of prostate bleeding was done by Dr Nettie Hernandez, urologist. Patient also received 7 units of PRBC and 2 units of FFP plus 1 unit of Platelet. Indwelling catheter was left in place until patient was transferred to Acute Rehab for continuation of PT/OT. As per Dr. Hernandez, patient is to continue indwelling catheter during rehab stay. 1. 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 Hematuria patient continue to have on and off hematuria sometimes with clotted blood Bladder mass were noted on CT scan of Abd/Pelvis done at [facility] CT scan of Abd/Pelvis with/without IV contrast: showed no pelvic mass but has severe mural thickening of the bladder wall and moderate enlargement of the prostate gland Dr Nettie Hernandez, who is remotely following the patient and who requested the repeat scan made aware of the result. He advised to keep the indwelling catheter until the patient is able to ambulate Dr Nettie Hernandez [phone] 3. Orthostatic Hypotension continue Midodrine Flomax cut down to once a day 4. HTN BP stable continue Amlodipine 10mg PO daily 5. Blood Loss Anemia received Venofer and 7 units of PRBC continue Fesol PO BID 6. DVT prophylaxis anticoagulant and anti-platelets on hold because of hematuria venodyne boots while in bed
[2017-07-15] MEDS: Ferrous Sulfate 300 mg/5 mL Liq UD PO SCH (11:40)
--- NOTE | 2017-07-15 13:25 | PSY.TMCNF ---
Nursing - Vital Signs Vital Signs (Last 8 hours): Vital Signs 07/15/17 07:30 Temperature 96.4 F L Pulse Rate 73 Respiratory 20 Rate Blood Pressure 142/76 O2 Sat by Pulse 97 Oximetry Pain: 0 - Precautions: Precautions: Fall Prevention - Medications/Other Issues Comment: Pt is at moderate nutritional risk. Goals-. 1. Pt to consume 75-100 % of meals (improving, continue). 2. Blood glucoses to be between 70-180 mg/ dl (met, continue). Follow-up assessment due by 07/17/2017 - Consults Comment: Dr. Kevin - Wound Right Buttock Wound Type: Skin Tear Wound Stage: STAGE II Periwound: Reddened Dressing Changed: No Wound Primary Dressing Type: Allevyn - Toileting Toileting: Moderate Assistance - Bladder Management Bladder Pattern: Retention Voiding Method: Indwelling Catheter - Bowel Management Bowel Pattern: Incontinent Bowel Management: Moderate Assistance - Transfers Transfers: Moderate Assistance - ADL's ADL's: Moderate Assistance - Pain Management Comments: Denies pain - Patient/Family Teaching Comments: N/A - Goals/Time Frame Comments: Per Multidisciplinary team Physical Therapy - Bed Mobility Bed Mobility: Verbal Cues, Minimal Assistance, Moderate Assistance - Transfers Sit to Stand: Moderate Assistance - Ambulation Level of Assistance: Moderate Assistance Distance (ft.): 20 Assistive Devices: Wide base quad cane - Stair Negotiation Stairs: Level of Assistance: Not Tested - Standing Balance Static Stand: Minimal Assistance Dynamic Stand: Moderate Assistance - Pain Pain (assessed during therapy session): 0 - Insight/Carryover Insight/Carryover: Fair - Patient/Family Education Comment: safety, therapy schedule, therapy goals, mobility, attention to task, POC, stroke recovery - Assessment/Plan Assessment: Pt continues to require vcs for safety. Pt is very cooperative. Improving Ind with functional transfers. - Goals Timeframe: 2 weeks Goals: mod I ub self care. mod I lb self care. mod I functional transfers. mod I feeding/grooming. mod I toileting tasks - Provider License Number: [id number] Occupational Therapy - Arousal/Attention/Orientation Patient Orientation: Person, Place, Time, Appropriate to Age, Appropriate to Situation - ADL/IADL Self Feeding: Set-up Help Grooming: Set-up Help Bathing-Upper Extremity: Moderate Assistance Bathing-Lower Extremity: Maximum Assistance Dressing-Upper Extremity: Moderate Assistance Dressing-Lower Extremity: Maximum Assistance - Sitting Balance Static Sitting: Supervision Dynamic Sitting: Contact Guard Assist - Transfers Wheelchair to Bed Transfers: Minimal Assistance Toilet Transfers: Minimal Assistance - Wheelchair Management Level of Assistance: Maximum Assistance - Upper Extremity Status Right Upper Extremity Comment: 1+/5 Left Upper Extremity Comment: 4-/5 - Pain Pain (assessed during therapy session): 0 - Insight/Carryover Insight/Carryover: Fair - Patient/Family Education Comment: safety, therapy schedule, therapy goals, mobility, attention to task, POC, stroke recovery - Assessment/Plan Assessment: Pt continues to require vcs for safety. Pt is very cooperative. Improving Ind with functional transfers. - Goals Timeframe: 2 weeks Goals: mod I ub self care. mod I lb self care. mod I functional transfers. mod I feeding/grooming. mod I toileting tasks - Provider Therapist: Sue CALDERON License Number: [id number] Speech Therapy - Consult Information Patient on Program: Yes Medical Diagnosis: CVA Treatment Diagnosis: -mild-moderate receptive/moderate expressive aphasia. - moderate dysarthria. -minimal oral dysphagia - Assessment Expressive Language Impairment: Moderate Receptive Language Impairment: Mild Speech/Articulation Impairment: Moderate Comment: minimal oral deficits - Plan Assessment: Pt continues to require vcs for safety. Pt is very cooperative. Improving Ind with functional transfers. - Provider Therapist: Sabrina Ferro License Number: [id number] Recreational Therapy - Participation Participation: Participates in Individual and/or Group Sessions - Attendance Attendance: 3-5 times per week - Activities Leisure Activities: Cards and Games - Socialization Level of Socialization: Initiates/interacts freely with care givers and peer - Assessment Assessment/Plan: Pt continues to require vcs for safety. Pt is very cooperative. Improving Ind with functional transfers. - Provider Therapist: Latonia Haskins, SCHOOL COUNSELLOR #[id number] Nutrition - Current Diet Current Diet/ Supplement/ Feedings: Regular diet with Ensure Plus BID - Appetite Percent Meal Consumed: 75-100% - Comments Comments: N/A - Assessment/Goals/Time Frame Assessment/Goals/Time Frame: Pt is at moderate nutritional risk. Goals-. 1. Pt to consume 75-100% of meals (improving, continue). 2. Blood glucoses to be between 70-180 mg/dl (met, continue). Follow-up assessment due by 07/17/2017 - Provider Provider: Melissa Osman MS, RD Case Management - Psychosocial Assessment Support Systems: Samuel Alejandre" Hari (son)- [phone] Psychological Interventions/Needs: Patient is alert with moderate expressive/ receptive aphasia Discharge Concerns: Patient with limited support during the day, patient medically complex, family has sold patient's home and voiced interest in MAL>LTC Patient/Family Meeting: CM met with patient and rehab team Intervention/Goal/Outcome:: 1. Plan: MAL>LTC, CM to speak with family to initiate Medicaid application for LTC placement, list of MAL to be provided to family. 2. continued emotional support. 3. tentative discharge date: 07/27/2017 - Discharge Plan Discharge Plan: Subacute care, termite technician care - Provider Provider: ENOCH Charlton, [employer] FABRICATION SUPERVISOR License Number: [id number] Rehabilitation Plan - Treatment Plan Treatment Plan: Physical Therapy, Occupational Therapy, Speech, Dietary, Patient /Family Education - Discharge Plan Estimated Date of Discharge: 07/27/17 Discharge to: Subacute
--- NOTE | 2017-07-15 13:46 | CP.PCM.PN ---
Subjective - Date & Time of Evaluation Date of Evaluation: 07/15/17 Time of Evaluation: 13:45 - Subjective Subjective: Patient seen in therapies denies sob/cp has had some episodic hypotension stable now david held limited functional gains and will need to go to [facility] in the end but still a good acute rehab candidate Objective - Vital Signs/Intake and Output Vital Signs (last 24 hours): Temp Pulse Resp BP Pulse Ox 96.4 F L 73 20 142/76 97 07/15/17 07:30 07/15/17 07:30 07/15/17 07:30 07/15/17 07:30 07/15/17 07:30 Intake and Output: 07/15/17 07/15/17 06:59 18:59 Intake Total 350 Output Total 700 Balance -350 - Medications Medications: Current Medications Amlodipine Besylate (Norvasc) 10 mg PO DAILY [facility] Aspirin (Ecotrin) 81 mg PO DAILY [facility] Last Admin: 07/15/17 11:42 Dose: 81 mg Atorvastatin Calcium (Lipitor) 80 mg PO HS [facility] Last Admin: 07/14/17 22:09 Dose: 80 mg Ciprofloxacin (Cipro) 500 mg PO Q12 [facility] PRN Reason: Protocol Last Admin: 07/15/17 11:40 Dose: 500 mg Ferrous Sulfate (Feosol Liq) 300 mg PO DAILY [facility] Last Admin: 07/15/17 11:40 Dose: 300 mg Finasteride (Proscar) 5 mg PO DAILY [facility] Last Admin: 07/15/17 11:43 Dose: 5 mg Levetiracetam (Keppra) 500 mg PO BID [facility] Last Admin: 07/15/17 11:41 Dose: 500 mg Midodrine (Proamatine) 5 mg PO Q8 [facility] Last Admin: 07/15/17 06:27 Dose: 5 mg Tamsulosin HCl (Flomax) 0.4 mg PO DAILY@2100 [facility] Last Admin: 07/14/17 20:58 Dose: 0.4 mg - Labs Labs: 07/12/17 06:00 07/09/17 05:30 PT 13.0 Seconds (9.8-13.1) 07/04/17 05:25 INR 1.2 (0.9-1.2) 07/04/17 05:25 APTT 30.3 Seconds (25.6-37.1) 07/04/17 05:25
[2017-07-16] MEDS: Ferrous Sulfate 300 mg/5 mL Liq UD PO SCH (08:46)
--- NOTE | 2017-07-16 09:58 | CP.PCM.PN ---
Subjective - Date & Time of Evaluation Date of Evaluation: 07/16/17 Time of Evaluation: 13:30 - Subjective Subjective: Patient seen and examined . Sitting in chair in NAD. Hemodynamically stable, afebrile. No acute issues overnight. Participating with PT and improving Objective - Vital Signs/Intake and Output Vital Signs (last 24 hours): Temp Pulse Resp BP Pulse Ox 97.3 F L 79 21 154/85 H 97 07/16/17 07:36 07/16/17 07:36 07/16/17 07:36 07/16/17 07:36 07/16/17 07:36 Intake and Output: 07/16/17 07/16/17 06:59 18:59 Intake Total 250 Output Total 400 Balance -150 - Medications Medications: Current Medications Amlodipine Besylate (Norvasc) 10 mg PO DAILY [facility] Aspirin (Ecotrin) 81 mg PO DAILY [facility] Last Admin: 07/16/17 08:47 Dose: 81 mg Atorvastatin Calcium (Lipitor) 80 mg PO HS [facility] Last Admin: 07/15/17 22:00 Dose: 80 mg Ciprofloxacin (Cipro) 500 mg PO Q12 [facility] PRN Reason: Protocol Last Admin: 07/16/17 08:47 Dose: 500 mg Ferrous Sulfate (Feosol Liq) 300 mg PO DAILY [facility] Last Admin: 07/16/17 08:46 Dose: 300 mg Finasteride (Proscar) 5 mg PO DAILY [facility] Last Admin: 07/16/17 08:46 Dose: 5 mg Levetiracetam (Keppra) 500 mg PO BID [facility] Last Admin: 07/16/17 08:46 Dose: 500 mg Midodrine (Proamatine) 10 mg PO Q12 [facility] Last Admin: 07/16/17 08:47 Dose: 10 mg Tamsulosin HCl (Flomax) 0.4 mg PO DAILY@2100 [facility] Last Admin: 07/15/17 22:01 Dose: 0.4 mg - Labs Labs: 07/12/17 06:00 07/09/17 05:30 PT 13.0 Seconds (9.8-13.1) 07/04/17 05:25 INR 1.2 (0.9-1.2) 07/04/17 05:25 APTT 30.3 Seconds (25.6-37.1) 07/04/17 05:25 - Constitutional Appears: Non-toxic, No Acute Distress - Head Exam Head Exam: ATRAUMATIC, NORMOCEPHALIC - Eye Exam Eye Exam: EOMI, PERRL Pupil Exam: NORMAL ACCOMODATION - ENT Exam ENT Exam: Mucous Membranes Moist, Normal Exam - Neck Exam Neck Exam: Full ROM, Normal Inspection - Respiratory Exam Respiratory Exam: Clear to Ausculation Bilateral, NORMAL BREATHING PATTERN. absent: Rales, Rhonchi, Wheezes - Cardiovascular Exam Cardiovascular Exam: REGULAR RHYTHM, RRR, +S1, +S2. absent: JVD - GI/Abdominal Exam GI & Abdominal Exam: Soft, Normal Bowel Sounds. absent: Distended, Guarding, Tenderness, Rebound - Rectal Exam Rectal Exam: Deferred - Extremities Exam Extremities Exam: Full ROM, Normal Inspection. absent: Calf Tenderness, Pedal Edema - Back Exam Back Exam: NORMAL INSPECTION - Neurological Exam Neurological Exam: Alert, Awake Additional comments: right facial droop right side weakness slurred speech - Psychiatric Exam Psychiatric exam: Normal Affect - Skin Skin Exam: Dry, Intact, Normal Color, Warm Assessment and Plan - Assessment and Plan (Free Text) Assessment: 77 [place] [facility] [place] because of Acute CVA with right facial droop and right sided weakness. Hospital stay was complicated with hematuria. CT scan of Abdomen/Pelvis showed a "Pelvic mass". Cystoscopy with evacuation of clots and fulguration of prostate bleeding was done by Dr Nettie Hernandez, urologist. Patient also received 7 units of PRBC and 2 units of FFP plus 1 unit of Platelet. Indwelling catheter was left in place until patient was transferred to Acute Rehab for continuation of PT/OT. At present in acute rehab, participating with PT and improving . 1. Acute CVA participating with PT and improving continue ASA, Lipitor Dr Lake on neuro consult Dr Prabhakar on physiatry consult continue PT, OT and ST continue Keppra 500mg PO BID per neuro recommendation 2. Hematuria resolved s/p cystoscopy with fulguration urine cx positive for gram positive cocci [id number] colonies. On Cipro empirically Bladder training was started yesterday . will d/c Robles catheter Follow up with Dr. Brooks done 07/15 . Continue Flomax and Proscar Dr Nettie Hernandez [phone] 3. Orthostatic Hypotension continue Midodrine 10 mg po BID 4. HTN BP stable continue Amlodipine 10mg PO daily 5. Blood Loss Anemia received Venofer and 7 units of PRBC continue Ferrous sulfate PO BID 6. DVT prophylaxis anticoagulant and anti-platelets on hold because of hematuria venodyne boots while in bed
--- NOTE | 2017-07-16 12:13 | CP.PCM.PN ---
Subjective - Date & Time of Evaluation Date of Evaluation: 07/16/17 Time of Evaluation: 12:12 - Subjective Subjective: Mr. Marino was seen and examined at the bedside. He is alert, oriented with slurred speech with right facial droop and right side weakness.He denies any headache, dizziness, lightheadedness. He able to follow simple commands.He is able to tolerate PO intake. There was no untoward events overnight. Objective - Vital Signs/Intake and Output Vital Signs (last 24 hours): Temp Pulse Resp BP Pulse Ox 97.3 F L 79 21 154/85 H 97 07/16/17 07:36 07/16/17 07:36 07/16/17 07:36 07/16/17 07:36 07/16/17 07:36 Intake and Output: 07/16/17 07/16/17 06:59 18:59 Intake Total 250 Output Total 400 Balance -150 - Medications Medications: Current Medications Amlodipine Besylate (Norvasc) 10 mg PO DAILY [facility] Aspirin (Ecotrin) 81 mg PO DAILY [facility] Last Admin: 07/16/17 08:47 Dose: 81 mg Atorvastatin Calcium (Lipitor) 80 mg PO HS [facility] Last Admin: 07/15/17 22:00 Dose: 80 mg Ciprofloxacin (Cipro) 500 mg PO Q12 [facility] PRN Reason: Protocol Last Admin: 07/16/17 08:47 Dose: 500 mg Ferrous Sulfate (Feosol Liq) 300 mg PO DAILY [facility] Last Admin: 07/16/17 08:46 Dose: 300 mg Finasteride (Proscar) 5 mg PO DAILY [facility] Last Admin: 07/16/17 08:46 Dose: 5 mg Levetiracetam (Keppra) 500 mg PO BID [facility] Last Admin: 07/16/17 08:46 Dose: 500 mg Midodrine (Proamatine) 10 mg PO Q12 [facility] Last Admin: 07/16/17 08:47 Dose: 10 mg Tamsulosin HCl (Flomax) 0.4 mg PO DAILY@2100 [facility] Last Admin: 07/15/17 22:01 Dose: 0.4 mg - Labs Labs: 07/12/17 06:00 07/09/17 05:30 PT 13.0 Seconds (9.8-13.1) 07/04/17 05:25 INR 1.2 (0.9-1.2) 07/04/17 05:25 APTT 30.3 Seconds (25.6-37.1) 07/04/17 05:25 - Constitutional Appears: No Acute Distress - Head Exam Head Exam: NORMAL INSPECTION - Neurological Exam Neurological Exam: Alert, Awake, Oriented x3 Neuro motor strength exam: Left Upper Extremity: 5, Right Upper Extremity: 2/1, Left Lower Extremity: 5, Right Lower Extremity: 2/1 Additional comments: Neurological unchanged from previous examination. Assessment and Plan (1) CVA (cerebral vascular accident) Assessment & Plan: Case discussed with Dr. Lake, continue all current medical, physical, occupational, and speech therapies. Recommend glycemic control, hydration, and monitor s/s of bleeding since patient is receiving antiplatelet. Status: Acute
--- NOTE | 2017-07-16 19:42 | PN ---
DATE: 07/16/[address] Prabhakar. SUBJECTIVE: The patient is doing fine. No acute complaints at present. PHYSICAL EXAMINATION: VITAL SIGNS: Stable. NECK: Supple. CHEST: Symmetrical. HEART: Sounds S1 and S2. ABDOMEN: Abdominal area is benign. EXTREMITIES: No clubbing, cyanosis or edema. IMPRESSION: Acute cerebrovascular accident, hypertension, anemia, and gait difficulty. PLAN: The patient at present for therapy. Tentative discharge is for 07/27/2017 with possible discharge to subacute. Pavel Gaytan MD
[2017-07-17] MEDS: Ferrous Sulfate 300 mg/5 mL Liq UD PO SCH (08:05)
--- NOTE | 2017-07-17 11:52 | CP.PCM.PN ---
Subjective - Date & Time of Evaluation Date of Evaluation: 07/17/17 Time of Evaluation: 11:52 - Subjective Subjective: Mr. Marino was seen and examined at the bedside. He is alert, oriented with slurred speech with right facial droop and right side weakness.He denies any headache, dizziness, lightheadedness. He able to follow simple commands.He is able to tolerate PO intake. He is complaining of hypoabdominal area pain, fontenot catheter was discontinued last night and able to void this morning, but with bladder distention. bladder ultrasound showed 600. Primary team made aware by staff. Objective - Vital Signs/Intake and Output Vital Signs (last 24 hours): Temp Pulse Resp BP Pulse Ox 97.7 F 78 18 115/63 96 07/17/17 07:47 07/17/17 07:47 07/17/17 07:47 07/17/17 09:55 07/17/17 07:47 Intake and Output: 07/17/17 07/17/17 06:59 18:59 Intake Total 300 Output Total 600 Balance -600 300 - Medications Medications: Current Medications Amlodipine Besylate (Norvasc) 10 mg PO DAILY [facility] Aspirin (Ecotrin) 81 mg PO DAILY [facility] Last Admin: 07/17/17 08:05 Dose: 81 mg Atorvastatin Calcium (Lipitor) 80 mg PO HS [facility] Last Admin: 07/16/17 21:55 Dose: 80 mg Ciprofloxacin (Cipro) 500 mg PO Q12 [facility] PRN Reason: Protocol Last Admin: 07/17/17 08:05 Dose: 500 mg Ferrous Sulfate (Feosol Liq) 300 mg PO DAILY [facility] Last Admin: 07/17/17 08:05 Dose: 300 mg Finasteride (Proscar) 5 mg PO DAILY [facility] Last Admin: 07/17/17 08:05 Dose: 5 mg Levetiracetam (Keppra) 500 mg PO BID [facility] Last Admin: 07/17/17 08:06 Dose: 500 mg Midodrine (Proamatine) 10 mg PO Q12 [facility] Last Admin: 07/17/17 08:05 Dose: 10 mg Tamsulosin HCl (Flomax) 0.4 mg PO DAILY@2100 [facility] Last Admin: 07/16/17 21:56 Dose: 0.4 mg - Labs Labs: 07/12/17 06:00 07/09/17 05:30 PT 13.0 Seconds (9.8-13.1) 07/04/17 05:25 INR 1.2 (0.9-1.2) 07/04/17 05:25 APTT 30.3 Seconds (25.6-37.1) 07/04/17 05:25 - Constitutional Appears: No Acute Distress - Head Exam Head Exam: NORMAL INSPECTION - Eye Exam Pupil Exam: PERRL - Neurological Exam Neurological Exam: Alert, Awake, Oriented x3 Neuro motor strength exam: Left Upper Extremity: 4, Right Upper Extremity: 0, Left Lower Extremity: 4, Right Lower Extremity: 0 Additional comments: Neurological unchanged from previous examination. Assessment and Plan (1) CVA (cerebral vascular accident) Assessment & Plan: Case discussed with Dr. Lake, continue all current medical, physical, occupational, and speech therapies. Recommend glycemic control, hydration, and monitor s/s of bleeding since patient is receiving antiplatelet. Please refer to primary team regarding bladder distention. Status: Acute
[2017-07-18] MEDS: Ferrous Sulfate 300 mg/5 mL Liq UD PO SCH (09:09)
--- NOTE | 2017-07-18 11:12 | CP.PCM.PN ---
Subjective - Date & Time of Evaluation Date of Evaluation: 07/18/17 Time of Evaluation: 11:12 - Subjective Subjective: Mr. Marino was seen and examined at the bedside. He is alert, oriented with slurred speech with right facial droop and right side weakness.He denies any headache, dizziness, lightheadedness with sitting position. He able to follow simple commands.He is able to tolerate PO intake. He is complaining of dizziness with change of position with blood pressure 80's, patient repositioned in supine position. There was no untoward events overnight. Objective - Vital Signs/Intake and Output Vital Signs (last 24 hours): Temp Pulse Resp BP Pulse Ox 98.6 F 83 20 153/85 H 95 07/18/17 08:30 07/18/17 08:30 07/18/17 08:30 07/18/17 08:30 07/18/17 08:30 Intake and Output: 07/18/17 07/18/17 06:59 18:59 Intake Total 350 Output Total 900 Balance -550 - Medications Medications: Current Medications Amlodipine Besylate (Norvasc) 10 mg PO DAILY [facility] Aspirin (Ecotrin) 81 mg PO DAILY [facility] Last Admin: 07/18/17 09:09 Dose: 81 mg Atorvastatin Calcium (Lipitor) 80 mg PO HS [facility] Last Admin: 07/17/17 21:21 Dose: 80 mg Ferrous Sulfate (Feosol Liq) 300 mg PO DAILY [facility] Last Admin: 07/18/17 09:09 Dose: 300 mg Finasteride (Proscar) 5 mg PO DAILY [facility] Last Admin: 07/18/17 09:10 Dose: 5 mg Fludrocortisone Acetate (Florinef) 0.1 mg PO DAILY [facility] Sodium Chloride (Sodium Chloride 0.9%) 500 mls @ 500 mls/hr IV .Q1H ONE Stop: 07/18/17 11:40 Sodium Chloride (Sodium Chloride 0.9%) 1,000 mls @ 50 mls/hr IV .Q20H [facility] Stop: 07/19/17 06:00 Lactobacillus Acidophilus (Bacid Acidophilus) 1 cap PO BID [facility] Levetiracetam (Keppra) 500 mg PO BID [facility] Last Admin: 07/18/17 09:10 Dose: 500 mg Midodrine (Proamatine) 10 mg PO Q12 [facility] Last Admin: 07/18/17 09:10 Dose: 10 mg Tamsulosin HCl (Flomax) 0.4 mg PO DAILY@2100 [facility] Last Admin: 07/17/17 21:21 Dose: 0.4 mg - Labs Labs: 07/12/17 06:00 07/09/17 05:30 PT 13.0 Seconds (9.8-13.1) 07/04/17 05:25 INR 1.2 (0.9-1.2) 07/04/17 05:25 APTT 30.3 Seconds (25.6-37.1) 07/04/17 05:25 - Constitutional Appears: No Acute Distress - Head Exam Head Exam: NORMAL INSPECTION - ENT Exam ENT Exam: Mucous Membranes Dry - Neurological Exam Neurological Exam: Alert, Awake, Oriented x3 Neuro motor strength exam: Left Upper Extremity: 5, Right Upper Extremity: 2/1, Left Lower Extremity: 5, Right Lower Extremity: 3 Additional comments: Neurological unchanged from previous examination. Assessment and Plan (1) CVA (cerebral vascular accident) Assessment & Plan: Case discussed with Dr. Lake, continue all current medical, physical, occupational, and speech therapies. Recommend glycemic control, hydration, and monitor s/s of bleeding since patient is receiving antiplatelet. Please refer to primary team regarding bladder distention. Status: Acute (2) Orthostatic hypotension Assessment & Plan: Case discussed with Dr. Lake, recommend florinef 0.1 mg PO daily, 500 ml of normal saline bolus for one dose ( mucus is dry), and 0.9 NS at 50 ml/hr for 12 hours only for nocturnal infusion, CBC, and CMP. Status: Acute
[2017-07-18] MEDS: Sodium Chloride 0.9% 500 ML IV ONE ×2 (11:20→11:22)
[2017-07-18 11:39] LABS: ALB/GLOB RATIO 0.8 (1.0-2.1); ALT/SGPT 44 U/L (21-72); AST/SGOT 52 U/L (17-59); BLOOD UREA NITROGEN 17 mg/dl (9-20); CALCIUM 8.2 mg/dL (8.4-10.2); GFR AFRICAN-AMERICAN > 60; GFR NON-AFRICAN AMERICAN > 60
[2017-07-18 11:42] LABS: HEMOGLOBIN 11.8 g/dL (12.0-18.0); MEAN CELL VOLUME 86.6 fl (80.0-94.0); MEAN CORPUSCULAR HEMOGLOBIN 28.2 pg (27.0-31.0); MEAN CORPUSCULAR HGB CONC 32.5 g/dL (33.0-37.0); RBC 4.2 Mil/uL (4.40-5.90); WHITE BLOOD COUNT 10.1 K/uL (4.8-10.8)
--- NOTE | 2017-07-18 12:02 | CP.PCM.PN ---
Subjective - Date & Time of Evaluation Date of Evaluation: 07/18/17 Time of Evaluation: 10:00 - Subjective Subjective: Patient seen and examined at bedside. Complaining of 4 episodes of loose stools overnight. Denies any other problems at present. Continues to have Robles catheter due to urinary retention. Objective - Vital Signs/Intake and Output Vital Signs (last 24 hours): Temp Pulse Resp BP Pulse Ox 98.6 F 83 20 153/85 H 95 07/18/17 08:30 07/18/17 08:30 07/18/17 08:30 07/18/17 08:30 07/18/17 08:30 Intake and Output: 07/18/17 07/18/17 06:59 18:59 Intake Total 350 Output Total 900 Balance -550 - Medications Medications: Current Medications Amlodipine Besylate (Norvasc) 10 mg PO DAILY [facility] Aspirin (Ecotrin) 81 mg PO DAILY [facility] Last Admin: 07/18/17 09:09 Dose: 81 mg Atorvastatin Calcium (Lipitor) 80 mg PO HS [facility] Last Admin: 07/17/17 21:21 Dose: 80 mg Ferrous Sulfate (Feosol Liq) 300 mg PO DAILY [facility] Last Admin: 07/18/17 09:09 Dose: 300 mg Finasteride (Proscar) 5 mg PO DAILY [facility] Last Admin: 07/18/17 09:10 Dose: 5 mg Fludrocortisone Acetate (Florinef) 0.1 mg PO DAILY [facility] Sodium Chloride (Sodium Chloride 0.9%) 1,000 mls @ 50 mls/hr IV .Q20H [facility] Stop: 07/19/17 06:00 Lactobacillus Acidophilus (Bacid Acidophilus) 1 cap PO BID [facility] Levetiracetam (Keppra) 500 mg PO BID [facility] Last Admin: 07/18/17 09:10 Dose: 500 mg Midodrine (Proamatine) 10 mg PO Q12 [facility] Last Admin: 07/18/17 09:10 Dose: 10 mg Tamsulosin HCl (Flomax) 0.4 mg PO DAILY@2100 [facility] Last Admin: 07/17/17 21:21 Dose: 0.4 mg - Labs Labs: 07/18/17 11:13 07/18/17 11:13 PT 13.0 Seconds (9.8-13.1) 07/04/17 05:25 INR 1.2 (0.9-1.2) 07/04/17 05:25 APTT 30.3 Seconds (25.6-37.1) 07/04/17 05:25 - Additional Findings Additional findings: Physical exam: Constitutional- cooperative, awake, alert Head- NCAT, PERRL Eye- PERRL, EOMI ENT- normal exam, MMM. Neck- normal inspection, supple, no JVD Respiratory- CTAB, no wheezes rales rhonchi Cardiovascular- RRR, +S1, +S2 no MRG GI/Abdominal- normal bowel sounds, soft, no mass, no hsm Skin- warm, dry Extremities Exam- normal capillary refill, normal inspection Neurological Exam- alert, awake, oriented. + Right facial droop. + Right sided weakness. + Slurred speech Psych- normal mood, normal affect Assessment and Plan - Assessment and Plan (Free Text) Plan: 77 yo male admitted [place] [facility] [place] because of Acute CVA with right facial droop and right sided weakness. Hospital stay was complicated with hematuria. CT scan of Abdomen/Pelvis showed a "Pelvic mass". Cystoscopy with evacuation of clots and fulguration of prostate bleeding was done by Dr Nettie Hernandez, urologist. Patient also received 7 units of PRBC and 2 units of FFP plus 1 unit of Platelet. Indwelling catheter was left in place until patient was transferred to Acute Rehab for continuation of PT/OT. As per Dr. Hernandez, patient is to continue indwelling catheter during rehab stay. 1. Acute CVA continue ASA, Lipitor Dr Lake on neuro consult Dr Prabhakar on physiatry consult continue PT, OT and ST had [employer] on 07/05/2017 because an episode of unresponsiveness continue Keppra 500mg PO BID per neuro recommendation 2. Hematuria patient continue to have on and off hematuria sometimes with clotted blood Bladder mass were noted on CT scan of Abd/Pelvis done at [facility] [place] scan of Abd/Pelvis with/without IV contrast: showed no pelvic mass but has severe mural thickening of the bladder wall and moderate enlargement of the prostate gland Dr Nettie Hernandez, who is remotely following the patient and who requested the repeat scan made aware of the result. He advised to keep the indwelling catheter until the patient is able to ambulate Dr Nettie Hernandez [phone] 3. Orthostatic Hypotension continue Midodrine Flomax cut down to once a day IV Fluids as being recommended by neurology Florinef 0.1 mg po daily 4. HTN BP stable continue Amlodipine 10mg PO daily 5. Blood Loss Anemia received Venofer and 7 units of PRBC continue Fesol PO BID 6. Loose stools overnight Possibly due to Ciprofloxacin side effect Finished course of Cipro Start lactobacillus and continue to monitor If continues to have loose bowel movements will order c. diff A&B 7. DVT prophylaxis anticoagulant and anti-platelets on hold because of hematuria venodyne boots while in bed
[2017-07-18] MEDS: Lactobacillus Acidophilus 500 MU Cap PO SCH ×2 (13:00→18:53)
[2017-07-18] MEDS ORDERED: Sodium Chloride 0.9% 1,000 ML IV SCH (18:00)
[2017-07-19 08:32] LABS: BLOOD UREA NITROGEN 16 mg/dl (9-20); GFR AFRICAN-AMERICAN > 60; GFR NON-AFRICAN AMERICAN > 60
[2017-07-19 08:34] LABS: HEMOGLOBIN 10.9 g/dL (12.0-18.0); MEAN CORPUSCULAR HEMOGLOBIN 28.6 pg (27.0-31.0); MEAN CORPUSCULAR HGB CONC 33.8 g/dL (33.0-37.0); RBC 3.83 Mil/uL (4.40-5.90); RED CELL DISTRIBUTION WIDTH 16.1 % (11.5-14.5); WHITE BLOOD COUNT 7.1 K/uL (4.8-10.8)
[2017-07-19] MEDS: Ferrous Sulfate 300 mg/5 mL Liq UD PO SCH (08:42)
[2017-07-19 08:53] LABS: MEAN CELL VOLUME 84.6 fl (80.0-94.0)
[2017-07-19] MEDS: Lactobacillus Acidophilus 500 MU Cap PO SCH ×2 (10:00→17:52)
--- NOTE | 2017-07-19 10:07 | CP.PCM.PN ---
Subjective - Date & Time of Evaluation Date of Evaluation: 07/18/17 Time of Evaluation: 09:30 - Subjective Subjective: no acute complaints at present Objective - Vital Signs/Intake and Output Vital Signs (last 24 hours): Temp Pulse Resp BP Pulse Ox 98.4 F 76 20 142/78 97 07/19/17 08:00 07/19/17 08:00 07/19/17 08:00 07/19/17 08:00 07/19/17 08:00 Intake and Output: 07/19/17 07/19/17 06:59 18:59 Intake Total 950 Output Total 550 Balance 400 - Medications Medications: Current Medications Amlodipine Besylate (Norvasc) 10 mg PO DAILY [facility] Aspirin (Ecotrin) 81 mg PO DAILY [facility] Last Admin: 07/19/17 08:42 Dose: 81 mg Atorvastatin Calcium (Lipitor) 80 mg PO HS [facility] Last Admin: 07/18/17 21:28 Dose: 80 mg Ferrous Sulfate (Feosol Liq) 300 mg PO DAILY [facility] Last Admin: 07/19/17 08:42 Dose: 300 mg Finasteride (Proscar) 5 mg PO DAILY [facility] Last Admin: 07/19/17 08:41 Dose: 5 mg Fludrocortisone Acetate (Florinef) 0.1 mg PO DAILY [facility] Last Admin: 07/19/17 08:41 Dose: 0.1 mg Lactobacillus Acidophilus (Bacid Acidophilus) 1 cap PO BID [facility] Last Admin: 07/18/17 18:53 Dose: 1 cap Levetiracetam (Keppra) 500 mg PO BID [facility] Last Admin: 07/19/17 08:42 Dose: 500 mg Midodrine (Proamatine) 10 mg PO Q12 [facility] Last Admin: 07/19/17 08:41 Dose: 10 mg Tamsulosin HCl (Flomax) 0.4 mg PO DAILY@2100 [facility] Last Admin: 07/18/17 21:28 Dose: 0.4 mg - Labs Labs: 07/19/17 06:00 07/19/17 06:00 PT 13.0 Seconds (9.8-13.1) 07/04/17 05:25 INR 1.2 (0.9-1.2) 07/04/17 05:25 APTT 30.3 Seconds (25.6-37.1) 07/04/17 05:25 - Head Exam Head Exam: ATRAUMATIC, NORMAL INSPECTION, NORMOCEPHALIC - Eye Exam Eye Exam: EOMI, Normal appearance, PERRL Pupil Exam: NORMAL ACCOMODATION, PERRL - ENT Exam ENT Exam: Mucous Membranes Moist, Normal Exam - Neck Exam Neck Exam: Full ROM, Normal Inspection - Respiratory Exam Respiratory Exam: Clear to Ausculation Bilateral, NORMAL BREATHING PATTERN - Cardiovascular Exam Cardiovascular Exam: REGULAR RHYTHM - GI/Abdominal Exam GI & Abdominal Exam: Soft, Normal Bowel Sounds - Rectal Exam Rectal Exam: NORMAL INSPECTION - Exam External exam: NORMAL EXTERNAL EXAM - Extremities Exam Extremities Exam: Full ROM, Normal Capillary Refill, Normal Inspection - Back Exam Back Exam: NORMAL INSPECTION - Neurological Exam Neurological Exam: Alert, Awake Additional comments: weakness - Psychiatric Exam Psychiatric exam: Normal Affect, Normal Mood - Skin Skin Exam: Dry, Normal Color Assessment and Plan (1) Gait abnormality Assessment & Plan: Acute CVA HTn anemia plan for physical, occupational , rec therapy continue with acute rehab Covering for Dr Prabhakar Status: Acute
--- NOTE | 2017-07-19 11:03 | CP.PCM.PN ---
Subjective - Date & Time of Evaluation Date of Evaluation: 07/17/17 Time of Evaluation: 11:30 - Subjective Subjective: no acute complaints at present Objective - Vital Signs/Intake and Output Vital Signs (last 24 hours): Temp Pulse Resp BP Pulse Ox 98.4 F 76 20 142/78 97 07/19/17 08:00 07/19/17 08:00 07/19/17 08:00 07/19/17 08:00 07/19/17 08:00 Intake and Output: 07/19/17 07/19/17 06:59 18:59 Intake Total 950 Output Total 550 Balance 400 - Medications Medications: Current Medications Amlodipine Besylate (Norvasc) 10 mg PO DAILY [facility] Aspirin (Ecotrin) 81 mg PO DAILY [facility] Last Admin: 07/19/17 08:42 Dose: 81 mg Atorvastatin Calcium (Lipitor) 80 mg PO HS [facility] Last Admin: 07/18/17 21:28 Dose: 80 mg Ferrous Sulfate (Feosol Liq) 300 mg PO DAILY [facility] Last Admin: 07/19/17 08:42 Dose: 300 mg Finasteride (Proscar) 5 mg PO DAILY [facility] Last Admin: 07/19/17 08:41 Dose: 5 mg Fludrocortisone Acetate (Florinef) 0.1 mg PO DAILY [facility] Last Admin: 07/19/17 08:41 Dose: 0.1 mg Lactobacillus Acidophilus (Bacid Acidophilus) 1 cap PO BID [facility] Last Admin: 07/18/17 18:53 Dose: 1 cap Levetiracetam (Keppra) 500 mg PO BID [facility] Last Admin: 07/19/17 08:42 Dose: 500 mg Midodrine (Proamatine) 10 mg PO Q12 [facility] Last Admin: 07/19/17 08:41 Dose: 10 mg Tamsulosin HCl (Flomax) 0.4 mg PO DAILY@2100 [facility] Last Admin: 07/18/17 21:28 Dose: 0.4 mg - Labs Labs: 07/19/17 06:00 07/19/17 06:00 PT 13.0 Seconds (9.8-13.1) 07/04/17 05:25 INR 1.2 (0.9-1.2) 07/04/17 05:25 APTT 30.3 Seconds (25.6-37.1) 07/04/17 05:25 - Head Exam Head Exam: ATRAUMATIC, NORMAL INSPECTION, NORMOCEPHALIC - Eye Exam Eye Exam: EOMI, Normal appearance Pupil Exam: NORMAL ACCOMODATION, PERRL - ENT Exam ENT Exam: Mucous Membranes Moist, Normal Exam - Neck Exam Neck Exam: Full ROM - Respiratory Exam Respiratory Exam: Clear to Ausculation Bilateral, NORMAL BREATHING PATTERN - Cardiovascular Exam Cardiovascular Exam: REGULAR RHYTHM - GI/Abdominal Exam GI & Abdominal Exam: Normal Bowel Sounds - Rectal Exam Rectal Exam: NORMAL INSPECTION - Exam External exam: NORMAL EXTERNAL EXAM - Back Exam Back Exam: NORMAL INSPECTION - Neurological Exam Neurological Exam: Alert, Awake Additional comments: status post right sided weakness and right facial weakness - Psychiatric Exam Psychiatric exam: Normal Affect, Normal Mood - Skin Skin Exam: Normal Color Assessment and Plan (1) Gait abnormality Assessment & Plan: plan for physical, occupational , rec therapy covering for Dr Prabhakar who is away Bladder follow up as per Dr Brooks Continue with acute rehab Status: Acute
[2017-07-20] MEDS: Ferrous Sulfate 300 mg/5 mL Liq UD PO SCH (08:43)
[2017-07-20] MEDS: Lactobacillus Acidophilus 500 MU Cap PO SCH ×2 (08:43→16:55)
--- NOTE | 2017-07-20 09:04 | CP.PCM.PN ---
Subjective - Date & Time of Evaluation Date of Evaluation: 07/20/17 Time of Evaluation: 09:04 - Subjective Subjective: Mr. Marino was seen and examined at the bedside. He is alert, oriented with slurred speech with right facial droop and right side weakness.He denies any headache, dizziness, lightheadedness with sitting position. He able to follow simple commands.He is able to tolerate PO intake. He further states of no diarrhea episodes . There was no untoward events overnight. Objective - Vital Signs/Intake and Output Vital Signs (last 24 hours): Temp Pulse Resp BP Pulse Ox 97.3 F L 82 20 135/75 99 07/19/17 20:00 07/19/17 20:00 07/19/17 20:00 07/19/17 20:00 07/19/17 20:00 - Medications Medications: Current Medications Amlodipine Besylate (Norvasc) 10 mg PO DAILY [facility] Aspirin (Ecotrin) 81 mg PO DAILY [facility] Last Admin: 07/20/17 08:43 Dose: 81 mg Atorvastatin Calcium (Lipitor) 80 mg PO HS [facility] Last Admin: 07/19/17 21:11 Dose: 80 mg Ferrous Sulfate (Feosol Liq) 300 mg PO DAILY [facility] Last Admin: 07/20/17 08:43 Dose: 300 mg Finasteride (Proscar) 5 mg PO DAILY [facility] Last Admin: 07/20/17 08:43 Dose: 5 mg Fludrocortisone Acetate (Florinef) 0.1 mg PO DAILY [facility] Last Admin: 07/20/17 08:43 Dose: 0.1 mg Lactobacillus Acidophilus (Bacid Acidophilus) 1 cap PO BID [facility] Last Admin: 07/20/17 08:43 Dose: 1 cap Levetiracetam (Keppra) 500 mg PO BID [facility] Last Admin: 07/20/17 08:43 Dose: 500 mg Midodrine (Proamatine) 10 mg PO Q12 [facility] Last Admin: 07/20/17 08:43 Dose: 10 mg Tamsulosin HCl (Flomax) 0.4 mg PO DAILY@2100 [facility] Last Admin: 07/19/17 21:11 Dose: 0.4 mg - Labs Labs: 07/19/17 06:00 07/19/17 06:00 PT 13.0 Seconds (9.8-13.1) 07/04/17 05:25 INR 1.2 (0.9-1.2) 07/04/17 05:25 APTT 30.3 Seconds (25.6-37.1) 07/04/17 05:25 - Constitutional Appears: No Acute Distress - Head Exam Head Exam: NORMAL INSPECTION - Eye Exam Pupil Exam: PERRL - Neurological Exam Neurological Exam: Alert, Awake, Oriented x3 Neuro motor strength exam: Left Upper Extremity: 5, Right Upper Extremity: 2/1, Left Lower Extremity: 5, Right Lower Extremity: 3 Additional comments: Neurological unchanged from previous examination. Assessment and Plan (1) CVA (cerebral vascular accident) Assessment & Plan: Case discussed with Dr. Kevin, continue all current medical, physical, occupational, and speech therapies. Recommend glycemic control, hydration, and keep head of bed elevated at least 30 degrees. Status: Acute
[2017-07-21] MEDS: Ferrous Sulfate 300 mg/5 mL Liq UD PO SCH (08:20)
[2017-07-21] MEDS: Lactobacillus Acidophilus 500 MU Cap PO SCH ×2 (08:26→17:17)
--- NOTE | 2017-07-21 10:29 | CP.PCM.PN ---
Subjective - Date & Time of Evaluation Date of Evaluation: 07/21/17 Time of Evaluation: 10:29 - Subjective Subjective: Mr. Marino was seen and examined at the bedside. He is alert, oriented with slurred speech with right facial droop and right side weakness.He denies any headache, dizziness, lightheadedness with sitting position. He able to follow simple commands.He is able to tolerate PO intake. He participates during therapy session.He further states of no diarrhea episodes . There was no untoward events overnight. Objective - Vital Signs/Intake and Output Vital Signs (last 24 hours): Temp Pulse Resp BP Pulse Ox 97.7 F 88 20 144/78 94 L 07/21/17 07:51 07/21/17 07:51 07/21/17 07:51 07/21/17 07:51 07/21/17 07:51 Intake and Output: 07/21/17 07/21/17 06:59 18:59 Intake Total 400 Output Total 850 Balance -450 - Medications Medications: Current Medications Amlodipine Besylate (Norvasc) 10 mg PO DAILY [facility] Aspirin (Ecotrin) 81 mg PO DAILY [facility] Last Admin: 07/21/17 08:24 Dose: 81 mg Atorvastatin Calcium (Lipitor) 80 mg PO HS [facility] Last Admin: 07/20/17 21:14 Dose: 80 mg Ferrous Sulfate (Feosol Liq) 300 mg PO DAILY [facility] Last Admin: 07/21/17 08:20 Dose: 300 mg Finasteride (Proscar) 5 mg PO DAILY [facility] Last Admin: 07/21/17 08:24 Dose: 5 mg Fludrocortisone Acetate (Florinef) 0.1 mg PO DAILY [facility] Last Admin: 07/21/17 08:23 Dose: 0.1 mg Lactobacillus Acidophilus (Bacid Acidophilus) 1 cap PO BID [facility] Last Admin: 07/21/17 08:26 Dose: 1 cap Levetiracetam (Keppra) 500 mg PO BID [facility] Last Admin: 07/21/17 08:23 Dose: 500 mg Midodrine (Proamatine) 10 mg PO Q12 [facility] Last Admin: 07/21/17 08:24 Dose: 10 mg Tamsulosin HCl (Flomax) 0.4 mg PO DAILY@2100 [facility] Last Admin: 07/20/17 21:13 Dose: 0.4 mg - Labs Labs: 07/19/17 06:00 07/19/17 06:00 PT 13.0 Seconds (9.8-13.1) 07/04/17 05:25 INR 1.2 (0.9-1.2) 07/04/17 05:25 APTT 30.3 Seconds (25.6-37.1) 07/04/17 05:25 - Constitutional Appears: No Acute Distress - Head Exam Head Exam: NORMAL INSPECTION - Eye Exam Pupil Exam: PERRL - Neurological Exam Neurological Exam: Alert, Awake, Oriented x3 Neuro motor strength exam: Left Upper Extremity: 5, Right Upper Extremity: 3, Left Lower Extremity: 5, Right Lower Extremity: 3 Additional comments: Neurological unchanged from previous examination. Assessment and Plan (1) CVA (cerebral vascular accident) Assessment & Plan: Case discussed with Dr. Kevin, continue all current medical, physical, occupational, and speech therapies. Recommend glycemic control, hydration, and keep head of bed elevated at least 30 degrees. Status: Acute
--- NOTE | 2017-07-21 12:12 | CP.PCM.PN ---
Subjective - Date & Time of Evaluation Date of Evaluation: 07/21/17 Time of Evaluation: 12:00 - Subjective Subjective: Patient seen and examined . Sitting in chair in NAD. Hemodynamically stable. participating with PT. No acute issues overnight . With at least 2 soft BM today. Objective - Vital Signs/Intake and Output Vital Signs (last 24 hours): Temp Pulse Resp BP Pulse Ox 97.7 F 90 20 111/65 94 L 07/21/17 07:51 07/21/17 10:25 07/21/17 07:51 07/21/17 10:25 07/21/17 07:51 Intake and Output: 07/21/17 07/21/17 06:59 18:59 Intake Total 400 Output Total 850 Balance -450 - Medications Medications: Current Medications Amlodipine Besylate (Norvasc) 10 mg PO DAILY [facility] Aspirin (Ecotrin) 81 mg PO DAILY [facility] Last Admin: 07/21/17 08:24 Dose: 81 mg Atorvastatin Calcium (Lipitor) 80 mg PO HS [facility] Last Admin: 07/20/17 21:14 Dose: 80 mg Ferrous Sulfate (Feosol Liq) 300 mg PO DAILY [facility] Last Admin: 07/21/17 08:20 Dose: 300 mg Finasteride (Proscar) 5 mg PO DAILY [facility] Last Admin: 07/21/17 08:24 Dose: 5 mg Fludrocortisone Acetate (Florinef) 0.1 mg PO DAILY [facility] Last Admin: 07/21/17 08:23 Dose: 0.1 mg Lactobacillus Acidophilus (Bacid Acidophilus) 1 cap PO BID [facility] Last Admin: 07/21/17 08:26 Dose: 1 cap Levetiracetam (Keppra) 500 mg PO BID [facility] Last Admin: 07/21/17 08:23 Dose: 500 mg Midodrine (Proamatine) 10 mg PO Q12 [facility] Last Admin: 07/21/17 08:24 Dose: 10 mg Tamsulosin HCl (Flomax) 0.4 mg PO DAILY@2100 [facility] Last Admin: 07/20/17 21:13 Dose: 0.4 mg - Labs Labs: 07/19/17 06:00 07/19/17 06:00 PT 13.0 Seconds (9.8-13.1) 07/04/17 05:25 INR 1.2 (0.9-1.2) 07/04/17 05:25 APTT 30.3 Seconds (25.6-37.1) 07/04/17 05:25 - Constitutional Appears: Non-toxic, No Acute Distress - Head Exam Head Exam: ATRAUMATIC, NORMOCEPHALIC - Eye Exam Eye Exam: PERRL Pupil Exam: NORMAL ACCOMODATION - ENT Exam ENT Exam: Mucous Membranes Moist, Normal Exam - Neck Exam Neck Exam: Full ROM, Normal Inspection - Respiratory Exam Respiratory Exam: Clear to Ausculation Bilateral, NORMAL BREATHING PATTERN. absent: Rales, Rhonchi, Wheezes - Cardiovascular Exam Cardiovascular Exam: REGULAR RHYTHM, RRR, +S1, +S2. absent: JVD - GI/Abdominal Exam GI & Abdominal Exam: Soft, Normal Bowel Sounds. absent: Distended, Guarding, Rebound - Rectal Exam Rectal Exam: Deferred - Extremities Exam Extremities Exam: Full ROM, Normal Capillary Refill, Normal Inspection. absent : Pedal Edema - Back Exam Back Exam: NORMAL INSPECTION - Neurological Exam Neurological Exam: Alert, Oriented x3 Additional comments: right side weakness , right facial droop slurred speech - Psychiatric Exam Psychiatric exam: Normal Affect - Skin Skin Exam: Dry, Normal Color, Warm Assessment and Plan - Assessment and Plan (Free Text) Assessment: 77 [place] [facility] [place] because of Acute CVA with right facial droop and right sided weakness. Hospital stay was complicated with hematuria. CT scan of Abdomen/Pelvis showed a "Pelvic mass". Cystoscopy with evacuation of clots and fulguration of prostate bleeding was done by Dr Nettie Hernandez, urologist. Patient also received 7 units of PRBC and 2 units of FFP plus 1 unit of Platelet. Indwelling catheter was left in place until patient was transferred to Acute Rehab for continuation of PT/OT. As per Dr. Hernandez, patient is to continue indwelling catheter during rehab stay. 1. Acute CVA continue ASA, Lipitor Dr Lake on neuro consult Dr Prabhakar on physiatry consult continue PT, OT and ST had [employer] on 07/05/2017 because an episode of unresponsiveness continue Keppra 500mg PO BID per neuro recommendation 2. Hematuria patient continue to have on and off hematuria sometimes with clotted blood Bladder mass were noted on CT scan of Abd/Pelvis [place] [facility] [place] of Abd/Pelvis with/without IV contrast: showed no pelvic mass but has severe mural thickening of the bladder wall and moderate enlargement of the prostate gland Dr Nettie Hernandez, who is remotely following the patient and who requested the repeat scan made aware of the result. He advised to keep the indwelling catheter until the patient is able to ambulate Dr Nettie Hernandez [phone] 3. Orthostatic Hypotension continue Midodrine abd florinef Flomax cut down to once a day 4. HTN BP stable continue Amlodipine 10mg PO daily 5.Acute Blood Loss Anemia received Venofer and 7 units of PRBC continue Fesol PO BID 6. Loose stools d/c ensure on bacid 7. DVT prophylaxis anticoagulant and anti-platelets on hold because of hematuria venodyne boots while in bed
[2017-07-22] MEDS: Lactobacillus Acidophilus 500 MU Cap PO SCH ×2 (08:20→16:41)
[2017-07-22] MEDS: Ferrous Sulfate 300 mg/5 mL Liq UD PO SCH (08:20)
--- NOTE | 2017-07-22 12:35 | CP.PCM.PN ---
Subjective - Date & Time of Evaluation Date of Evaluation: 07/22/17 Time of Evaluation: 12:35 - Subjective Subjective: pt participating with PT well in good spirits states he feels he is improving denies cp, sob, calf tenderness hd stable nad Objective - Vital Signs/Intake and Output Vital Signs (last 24 hours): Temp Pulse Resp BP Pulse Ox 97.2 F L 73 18 121/78 94 L 07/22/17 09:00 07/22/17 09:00 07/22/17 09:00 07/22/17 09:47 07/22/17 08:02 Vitals Reviewed GEN: WDWN, alert, cooperative HEENT: NCAT, PERRL, EOMI HEART: RRR, +S1S2, NO MRG LUNG: CTAB, NO WRR ABD: soft, NT, ND, No HSM, No masses EXT: normal pedal pulses, normal capillary refill NEURO: awake, alert\\ SKIN: warm, dry PSYCH: normal mood, normal affect Intake and Output: 07/22/17 07/22/17 06:59 18:59 Intake Total 350 Output Total 850 Balance -500 - Medications Medications: Current Medications Amlodipine Besylate (Norvasc) 10 mg PO DAILY [facility] Aspirin (Ecotrin) 81 mg PO DAILY [facility] Last Admin: 07/22/17 08:20 Dose: 81 mg Atorvastatin Calcium (Lipitor) 80 mg PO HS [facility] Last Admin: 07/21/17 21:24 Dose: 80 mg Ferrous Sulfate (Feosol Liq) 300 mg PO DAILY [facility] Last Admin: 07/22/17 08:20 Dose: 300 mg Finasteride (Proscar) 5 mg PO DAILY [facility] Last Admin: 07/22/17 08:20 Dose: 5 mg Fludrocortisone Acetate (Florinef) 0.1 mg PO DAILY [facility] Last Admin: 07/22/17 08:21 Dose: 0.1 mg Lactobacillus Acidophilus (Bacid Acidophilus) 1 cap PO BID [facility] Last Admin: 07/22/17 08:20 Dose: 1 cap Levetiracetam (Keppra) 500 mg PO BID [facility] Last Admin: 07/22/17 08:20 Dose: 500 mg Midodrine (Proamatine) 10 mg PO Q12 [facility] Last Admin: 07/22/17 08:20 Dose: 10 mg Tamsulosin HCl (Flomax) 0.4 mg PO DAILY@2100 [facility] Last Admin: 07/21/17 21:45 Dose: 0.4 mg - Labs Labs: 07/19/17 06:00 07/19/17 06:00 PT 13.0 Seconds (9.8-13.1) 07/04/17 05:25 INR 1.2 (0.9-1.2) 07/04/17 05:25 APTT 30.3 Seconds (25.6-37.1) 07/04/17 05:25 Assessment and Plan - Assessment and Plan (Free Text) Plan: 77 yo male admitted to the [facility] [place] on 06/23/17 because of Acute CVA with right facial droop and right sided weakness. Hospital stay was complicated with hematuria. CT scan of Abdomen/Pelvis showed a "Pelvic mass". Cystoscopy with evacuation of clots and fulguration of prostate bleeding was done by Dr Nettie Hernandez, urologist. Patient also received 7 units of PRBC and 2 units of FFP plus 1 unit of Platelet. Indwelling catheter was left in place until patient was transferred to Acute Rehab for continuation of PT/OT. As per Dr. Hernandez, patient is to continue indwelling catheter during rehab stay. 1. Acute CVA continue ASA, Lipitor Dr Lake on neuro consult Dr Prabhakar on physiatry consult continue PT, OT and ST had [employer] on 07/05/2017 because an episode of unresponsiveness continue Keppra 500mg PO BID per neuro recommendation 2. Hematuria patient continue to have on and off hematuria sometimes with clotted blood Bladder mass were noted on CT scan of Abd/Pelvis done at [facility] [place] CT scan of Abd/Pelvis with/without IV contrast: showed no pelvic mass but has severe mural thickening of the bladder wall and moderate enlargement of the prostate gland Dr Nettie Hernandez, who is remotely following the patient and who requested the repeat scan made aware of the result. He advised to keep the indwelling catheter until the patient is able to ambulate Dr Nettie Hernandez [phone] 3. Orthostatic Hypotension continue Midodrine abd florinef Flomax cut down to once a day 4. HTN BP stable continue Amlodipine 10mg PO daily 5.Acute Blood Loss Anemia received Venofer and 7 units of PRBC continue Fesol PO BID 6. Loose stools d/c ensure on bacid 7. DVT prophylaxis anticoagulant and anti-platelets on hold because of hematuria venodyne boots while in bed
--- NOTE | 2017-07-22 13:27 | PSY.TMCNF ---
Nursing - Vital Signs Vital Signs (Last 8 hours): Vital Signs 07/22/17 07/22/17 07/22/17 08:02 09:00 09:47 Temperature 97.2 F L 97.2 F L Pulse Rate 73 73 Respiratory 18 18 Rate Blood Pressure 130/67 130/67 121/78 O2 Sat by Pulse 94 L Oximetry Pain: 0 - Precautions: Precautions: Fall Prevention, Aspiration - Medications/Other Issues Comment: Urinary retention, orthostatic hypotension - Consults Comment: Dr Prabhakar,Dr Todd Kevin - Skin Incision Line Treatment: rt buttocks skin tear with allevyn dressing dressing to be changed q3 days due 07/16 - Wound Right Buttock Wound Type: Other Wound Stage: STAGE II Periwound: Reddened Dressing Changed: No Wound Primary Dressing Type: Allevyn - Toileting Toileting: Moderate Assistance - Bladder Management Bladder Pattern: Retention Voiding Method: Indwelling Catheter Bladder Management: Dependent - Bowel Management Bowel Pattern: Normal Bowel Management: Minimal Assistance - Transfers Transfers: Minimal Assistance - ADL's ADL's: Moderate Assistance - Pain Management Comments: denies any pain - Patient/Family Teaching Comments: POst stroke care ,fontenot catheter care , prevention of infection, care skin care - Goals/Time Frame Comments: as per multidiciplinary plan of care - Provider Provider: [facility] - Bed Mobility Bed Mobility: Contact Guard, Minimal Assistance Comment: HOB elevated and use of bed rails - Transfers Wheelchair to Mat: Verbal Cues, Minimal Assistance, Moderate Assistance Sit to Stand: Verbal Cues, Contact Guard, Minimal Assistance Comment: WBQC - Ambulation Level of Assistance: Verbal Cues, Minimal Assistance, Moderate Assistance Distance (ft.): 95 Assistive Devices: Narrow base quad cane, Wide base quad cane - Stair Negotiation Stairs: Level of Assistance: Verbal Cues, Moderate Assistance Number of Stairs: 12 Stairs: Assistive Devices: Left Handrail - Standing Balance Static Stand: Minimal Assistance Dynamic Stand: Minimal Assistance, Moderate Assistance - Pain Pain (assessed during therapy session): 0 Comment: denies - Insight/Carryover Insight/Carryover: Fair - Patient/Family Education Comment: -safety, therapy schedule, use of call eddy, POC, therapy goals, mobility, stroke recovery, transfers, use of DME. -patient continues to demonstrate impaired carry-over requiring frequent cues for safety and to mobility patterns - Assessment/Plan Assessment: Patient progress has been very slow to start due to orthostatic hypotensive episodes with symptoms. Continued education with nursing/MD has been made. patient's functional transfer status has improved to min A however- pt still requires max A with toileting and lb dressing/bathing. patient still demoes R sided weakness. slight shoulder adduction/abduction/flexion/extension noted. however- no AROM noted in wrist/digits. Reccommned cont skilled IP OT services 5-6x/week to max functional I . Reccommend MAL post IP stay. Pt is unsafe to return home at this time - Goals Timeframe: 7 days Goals: mod I transfers. mod I toileting. mod I grooming. mod I ub/lb bathing. mod I ub/lb dressing - Provider Therapist: Xochilt Valdes PT, DPT License Number: [id number] Occupational Therapy - Arousal/Attention/Orientation Patient Orientation: Person, Place, Time, Appropriate to Age, Appropriate to Situation - ADL/IADL Self Feeding: Set-up Help Grooming: Minimal Assistance Bathing-Upper Extremity: Moderate Assistance Bathing-Lower Extremity: Maximum Assistance Dressing-Upper Extremity: Moderate Assistance Dressing-Lower Extremity: Maximum Assistance - Sitting Balance Static Sitting: Supervision Dynamic Sitting: Contact Guard Assist - Transfers Wheelchair to Bed Transfers: Minimal Assistance Toilet Transfers: Minimal Assistance Tub Transfers: Maximum Assistance - Wheelchair Management Level of Assistance: Moderate Assistance, Maximum Assistance Distance (ft.): 50 - Upper Extremity Status Right Upper Extremity Comment: 1+/5 Left Upper Extremity Comment: 4-/5 - Pain Pain (assessed during therapy session): 0 Comment: denies - Insight/Carryover Insight/Carryover: Fair - Patient/Family Education Comment: -safety, therapy schedule, use of call eddy, POC, therapy goals, mobility, stroke recovery, transfers, use of DME. -patient continues to demonstrate impaired carry-over requiring frequent cues for safety and to mobility patterns - Assessment/Plan Assessment: Patient progress has been very slow to start due to orthostatic hypotensive episodes with symptoms. Continued education with nursing/MD has been made. patient's functional transfer status has improved to min A however- pt still requires max A with toileting and lb dressing/bathing. patient still demoes R sided weakness. slight shoulder adduction/abduction/flexion/extension noted. however- no AROM noted in wrist/digits. Reccommned cont skilled IP OT services 5-6x/week to max functional I . Reccommend MAL post IP stay. Pt is unsafe to return home at this time - Goals Timeframe: 7 days Goals: mod I transfers. mod I toileting. mod I grooming. mod I ub/lb bathing. mod I ub/lb dressing - Provider Therapist: DANIELLE Saxena/Kevin License Number: [id number] Speech Therapy - Consult Information Patient on Program: Yes Medical Diagnosis: CVA Treatment Diagnosis: -mild-moderate receptive/expressive aphasia. -mild- moderate dysarthria - Assessment Expressive Language Impairment: Moderate Receptive Language Impairment: Mild Speech/Articulation Impairment: Moderate Comment: mild-moderate - Plan Assessment: Patient progress has been very slow to start due to orthostatic hypotensive episodes with symptoms. Continued education with nursing/MD has been made. patient's functional transfer status has improved to min A however- pt still requires max A with toileting and lb dressing/bathing. patient still demoes R sided weakness. slight shoulder adduction/abduction/flexion/extension noted. however- no AROM noted in wrist/digits. Reccommned cont skilled IP OT services 5-6x/week to max functional I . Reccommend MAL post IP stay. Pt is unsafe to return home at this time Plan: Continue Speech/Language Therapy - Provider Therapist: Sabrina Ferro License Number: [id number] Recreational Therapy - Participation Participation: Participates in Individual and/or Group Sessions - Attendance Attendance: 3-5 times per week - Activities Leisure Activities: Cards and Games - Socialization Level of Socialization: Initiates/interacts freely with care givers and peer - Assessment Assessment/Plan: Patient progress has been very slow to start due to orthostatic hypotensive episodes with symptoms. Continued education with nursing /MD has been made. patient's functional transfer status has improved to min A however- pt still requires max A with toileting and lb dressing/bathing. patient still demoes R sided weakness. slight shoulder adduction/abduction/ flexion/extension noted. however- no AROM noted in wrist/digits. Reccommned cont skilled IP OT services 5-6x/week to max functional I . Reccommend MAL post IP stay. Pt is unsafe to return home at this time - Provider Therapist: Latonia Haskins, CONTACT [employer]ANT OPERATOR HELPER #[id number] Nutrition - Current Diet Current Diet/ Supplement/ Feedings: Regular diet ensure plus 8 ounces 2 per day( 700 kcal and 26 grams of protein) - Appetite Percent Meal Consumed: 75-100% - Comments Comments: POst stroke care ,fontenot catheter care , prevention of infection, care skin care - Assessment/Goals/Time Frame Assessment/Goals/Time Frame: Urinary retention, orthostatic hypotension - Provider Provider: Larissa Martinez RD Case Management - Psychosocial Assessment Support Systems: Skills Matter" Hari (son)- [phone] Psychological Interventions/Needs: Patient is alert with moderate expressive/ receptive aphasia Discharge Concerns: Patient with limited support during the day, patient medically complex, family has sold patient's home and voiced interest in MAL>LTC Patient/Family Meeting: CM met with patient and rehab team Intervention/Goal/Outcome:: 1. Plan: MAL>LTC, possible d/c to home in [place] dependent on progress. CM to speak with family to initiate Medicaid application for LTC placement, list of MAL to be provided to family- [facility]. 2. continued emotional support. 3. tentative discharge date: 07/27 - Discharge Plan Discharge Plan: Subacute care, terminal gauger care - Provider Provider: ENOCH Charlton, NUTRITION MANAGER License Number: [id number] Rehabilitation Plan - Treatment Plan Treatment Plan: Physical Therapy, Occupational Therapy, Speech, Dietary, Patient /Family Education - Discharge Plan Estimated Date of Discharge: 07/27/17 Discharge to: Subacute
--- NOTE | 2017-07-22 13:48 | CP.PCM.PN ---
Subjective - Date & Time of Evaluation Date of Evaluation: 07/22/17 Time of Evaluation: 13:47 - Subjective Subjective: Patient seen in the room did not recall that he cannot go home this was explained to him again and he kind of got it but said he still has a few more days so we will see This will clearly not be enough to make an overall change like that. Set for 07/27/17 d/c Objective - Vital Signs/Intake and Output Vital Signs (last 24 hours): Temp Pulse Resp BP Pulse Ox 97.2 F L 73 18 121/78 94 L 07/22/17 09:00 07/22/17 09:00 07/22/17 09:00 07/22/17 09:47 07/22/17 08:02 Intake and Output: 07/22/17 07/22/17 06:59 18:59 Intake Total 350 Output Total 850 Balance -500 - Medications Medications: Current Medications Amlodipine Besylate (Norvasc) 10 mg PO DAILY [facility] Aspirin (Ecotrin) 81 mg PO DAILY [facility] Last Admin: 07/22/17 08:20 Dose: 81 mg Atorvastatin Calcium (Lipitor) 80 mg PO HS [facility] Last Admin: 07/21/17 21:24 Dose: 80 mg Ferrous Sulfate (Feosol Liq) 300 mg PO DAILY [facility] Last Admin: 07/22/17 08:20 Dose: 300 mg Finasteride (Proscar) 5 mg PO DAILY [facility] Last Admin: 07/22/17 08:20 Dose: 5 mg Fludrocortisone Acetate (Florinef) 0.1 mg PO DAILY [facility] Last Admin: 07/22/17 08:21 Dose: 0.1 mg Lactobacillus Acidophilus (Bacid Acidophilus) 1 cap PO BID [facility] Last Admin: 07/22/17 08:20 Dose: 1 cap Levetiracetam (Keppra) 500 mg PO BID [facility] Last Admin: 07/22/17 08:20 Dose: 500 mg Midodrine (Proamatine) 10 mg PO Q12 [facility] Last Admin: 07/22/17 08:20 Dose: 10 mg Tamsulosin HCl (Flomax) 0.4 mg PO DAILY@2100 [facility] Last Admin: 07/21/17 21:45 Dose: 0.4 mg - Labs Labs: 07/19/17 06:00 07/19/17 06:00 PT 13.0 Seconds (9.8-13.1) 07/04/17 05:25 INR 1.2 (0.9-1.2) 07/04/17 05:25 APTT 30.3 Seconds (25.6-37.1) 07/04/17 05:25
[2017-07-23] MEDS: Lactobacillus Acidophilus 500 MU Cap PO SCH ×2 (08:28→16:41)
[2017-07-23] MEDS: Ferrous Sulfate 300 mg/5 mL Liq UD PO SCH (08:28)
--- NOTE | 2017-07-23 10:04 | CP.PCM.PN ---
Subjective - Date & Time of Evaluation Date of Evaluation: 07/23/17 Time of Evaluation: 10:04 - Subjective Subjective: Mr. Marino was seen and examined at the bedside. He is alert, oriented with slurred speech with right facial droop and right side weakness.He denies any headache, dizziness, lightheadedness with sitting position. He able to follow simple commands.He is able to tolerate PO intake. He participates during therapy session.He further states of no diarrhea episodes . There was no untoward events overnight. Objective - Vital Signs/Intake and Output Vital Signs (last 24 hours): Temp Pulse Resp BP Pulse Ox 98.1 F 76 20 143/77 95 07/23/17 07:44 07/23/17 07:44 07/23/17 07:44 07/23/17 07:44 07/23/17 07:44 Intake and Output: 07/23/17 07/23/17 06:59 18:59 Intake Total 450 Output Total 400 Balance 50 - Medications Medications: Current Medications Amlodipine Besylate (Norvasc) 10 mg PO DAILY [facility] Aspirin (Ecotrin) 81 mg PO DAILY [facility] Last Admin: 07/23/17 08:28 Dose: 81 mg Atorvastatin Calcium (Lipitor) 80 mg PO HS [facility] Last Admin: 07/22/17 21:41 Dose: 80 mg Ferrous Sulfate (Feosol Liq) 300 mg PO DAILY [facility] Last Admin: 07/23/17 08:28 Dose: 300 mg Finasteride (Proscar) 5 mg PO DAILY [facility] Last Admin: 07/23/17 08:28 Dose: 5 mg Fludrocortisone Acetate (Florinef) 0.1 mg PO DAILY [facility] Last Admin: 07/23/17 08:28 Dose: 0.1 mg Lactobacillus Acidophilus (Bacid Acidophilus) 1 cap PO BID [facility] Last Admin: 07/23/17 08:28 Dose: 1 cap Levetiracetam (Keppra) 500 mg PO BID [facility] Last Admin: 07/23/17 08:28 Dose: 500 mg Midodrine (Proamatine) 10 mg PO Q12 [facility] Last Admin: 07/23/17 08:28 Dose: 10 mg Tamsulosin HCl (Flomax) 0.4 mg PO DAILY@2100 [facility] Last Admin: 07/22/17 21:42 Dose: 0.4 mg - Labs Labs: 07/19/17 06:00 07/19/17 06:00 PT 13.0 Seconds (9.8-13.1) 07/04/17 05:25 INR 1.2 (0.9-1.2) 07/04/17 05:25 APTT 30.3 Seconds (25.6-37.1) 07/04/17 05:25 - Constitutional Appears: No Acute Distress - Head Exam Head Exam: NORMAL INSPECTION - Eye Exam Pupil Exam: PERRL - Neurological Exam Neurological Exam: Awake, Oriented x3 Neuro motor strength exam: Left Upper Extremity: 5, Right Upper Extremity: 2/1, Left Lower Extremity: 5, Right Lower Extremity: 3 Additional comments: Neurological unchanged from previous examination. Assessment and Plan (1) CVA (cerebral vascular accident) Assessment & Plan: Case discussed with Dr. Kevin, continue all current medical, physical, occupational, and speech therapies. Recommend glycemic control, hydration, and keep head of bed elevated at least 30 degrees. Status: Acute
[2017-07-23 15:45] VITALS: BMI 17.2
--- NOTE | 2017-07-23 17:51 | CP.PCM.PN ---
Subjective - Date & Time of Evaluation Date of Evaluation: 07/23/17 Time of Evaluation: 17:50 - Subjective Subjective: Patient seen in the room NAD doing well today and able to ambulate 125' in therapies with NBQC and min A nursing noted some hematuria that was not present earlier no fever continue current care Objective - Vital Signs/Intake and Output Vital Signs (last 24 hours): Temp Pulse Resp BP Pulse Ox 98.1 F 76 20 122/61 95 07/23/17 07:44 07/23/17 07:44 07/23/17 07:44 07/23/17 09:18 07/23/17 07:44 Intake and Output: 07/23/17 07/23/17 06:59 18:59 Intake Total 450 Output Total 400 Balance 50 - Medications Medications: Current Medications Amlodipine Besylate (Norvasc) 10 mg PO DAILY [facility] Aspirin (Ecotrin) 81 mg PO DAILY [facility] Last Admin: 07/23/17 08:28 Dose: 81 mg Atorvastatin Calcium (Lipitor) 80 mg PO HS [facility] Last Admin: 07/22/17 21:41 Dose: 80 mg Ferrous Sulfate (Feosol Liq) 300 mg PO DAILY [facility] Last Admin: 07/23/17 08:28 Dose: 300 mg Finasteride (Proscar) 5 mg PO DAILY [facility] Last Admin: 07/23/17 08:28 Dose: 5 mg Fludrocortisone Acetate (Florinef) 0.1 mg PO DAILY [facility] Last Admin: 07/23/17 08:28 Dose: 0.1 mg Lactobacillus Acidophilus (Bacid Acidophilus) 1 cap PO BID [facility] Last Admin: 07/23/17 16:41 Dose: 1 cap Levetiracetam (Keppra) 500 mg PO BID [facility] Last Admin: 07/23/17 16:41 Dose: 500 mg Midodrine (Proamatine) 10 mg PO Q12 [facility] Last Admin: 07/23/17 08:28 Dose: 10 mg Tamsulosin HCl (Flomax) 0.4 mg PO DAILY@2100 [facility] Last Admin: 07/22/17 21:42 Dose: 0.4 mg - Labs Labs: 07/19/17 06:00 07/19/17 06:00 PT 13.0 Seconds (9.8-13.1) 07/04/17 05:25 INR 1.2 (0.9-1.2) 07/04/17 05:25 APTT 30.3 Seconds (25.6-37.1) 07/04/17 05:25
[2017-07-24] MEDS: Lactobacillus Acidophilus 500 MU Cap PO SCH ×2 (09:08→16:40)
[2017-07-24] MEDS: Ferrous Sulfate 300 mg/5 mL Liq UD PO SCH (09:11)
--- NOTE | 2017-07-24 09:52 | CP.PCM.PN ---
Subjective - Date & Time of Evaluation Date of Evaluation: 07/24/17 Time of Evaluation: 09:52 - Subjective Subjective: Mr. Marino was seen and examined at the bedside. He is alert, oriented with slurred speech with right facial droop and right side weakness.He denies any headache, dizziness, lightheadedness with sitting position. He able to follow simple commands.He is able to tolerate PO intake. There was no untoward events overnight. Objective - Vital Signs/Intake and Output Vital Signs (last 24 hours): Temp Pulse Resp BP Pulse Ox 98.1 F 84 20 141/79 97 07/24/17 07:47 07/24/17 07:47 07/24/17 07:47 07/24/17 07:47 07/24/17 07:47 Intake and Output: 07/24/17 07/24/17 06:59 18:59 Intake Total 450 Output Total 500 Balance -50 - Medications Medications: Current Medications Amlodipine Besylate (Norvasc) 10 mg PO DAILY [facility] Aspirin (Ecotrin) 81 mg PO DAILY [facility] Last Admin: 07/24/17 09:11 Dose: 81 mg Atorvastatin Calcium (Lipitor) 80 mg PO HS [facility] Last Admin: 07/23/17 21:27 Dose: 80 mg Ferrous Sulfate (Feosol Liq) 300 mg PO DAILY [facility] Last Admin: 07/24/17 09:11 Dose: 300 mg Finasteride (Proscar) 5 mg PO DAILY [facility] Last Admin: 07/24/17 09:12 Dose: 5 mg Fludrocortisone Acetate (Florinef) 0.1 mg PO DAILY [facility] Last Admin: 07/24/17 09:11 Dose: 0.1 mg Lactobacillus Acidophilus (Bacid Acidophilus) 1 cap PO BID [facility] Last Admin: 07/24/17 09:08 Dose: 1 cap Levetiracetam (Keppra) 500 mg PO BID [facility] Last Admin: 07/24/17 09:11 Dose: 500 mg Midodrine (Proamatine) 10 mg PO Q12 [facility] Last Admin: 07/24/17 09:11 Dose: 10 mg Tamsulosin HCl (Flomax) 0.4 mg PO DAILY@2100 [facility] Last Admin: 07/23/17 21:26 Dose: 0.4 mg - Labs Labs: 07/19/17 06:00 07/19/17 06:00 PT 13.0 Seconds (9.8-13.1) 07/04/17 05:25 INR 1.2 (0.9-1.2) 07/04/17 05:25 APTT 30.3 Seconds (25.6-37.1) 07/04/17 05:25 - Constitutional Appears: No Acute Distress - Head Exam Head Exam: NORMAL INSPECTION - Eye Exam Pupil Exam: PERRL - Neurological Exam Neurological Exam: Alert, Awake, Oriented x3 Neuro motor strength exam: Left Upper Extremity: 5, Right Upper Extremity: 2/1, Left Lower Extremity: 5, Right Lower Extremity: 3 Additional comments: Neurological unchanged from previous examination. Assessment and Plan (1) CVA (cerebral vascular accident) Assessment & Plan: Case discussed with Dr. Kevin, continue all current medical, physical, occupational, and speech therapies. Recommend glycemic control, hydration, and keep head of bed elevated at least 30 degrees. Status: Acute
[2017-07-25 06:26] LABS: HEMOGLOBIN 10.5 g/dL (12.0-18.0); MEAN CELL VOLUME 84.1 fl (80.0-94.0); MEAN CORPUSCULAR HEMOGLOBIN 28.6 pg (27.0-31.0); RBC 3.67 Mil/uL (4.40-5.90); RED CELL DISTRIBUTION WIDTH 15.7 % (11.5-14.5); WHITE BLOOD COUNT 5.4 K/uL (4.8-10.8)
[2017-07-25] MEDS: Lactobacillus Acidophilus 500 MU Cap PO SCH ×2 (08:32→16:43)
[2017-07-25] MEDS: Ferrous Sulfate 300 mg/5 mL Liq UD PO SCH (08:33)
--- NOTE | 2017-07-25 10:43 | CP.PCM.PN ---
Subjective - Date & Time of Evaluation Date of Evaluation: 07/25/17 Time of Evaluation: 10:43 - Subjective Subjective: Mr. Marino was seen and examined at the bedside. He is alert, oriented with slurred speech with right facial droop and right side weakness.He denies any headache, dizziness, lightheadedness with sitting position. He able to follow simple commands.He is able to tolerate PO intake. He participates during therapy session.He further states of no diarrhea episodes, but had couple episode of bowel movement. There was no untoward events overnight. Objective - Vital Signs/Intake and Output Vital Signs (last 24 hours): Temp Pulse Resp BP Pulse Ox 97.3 F L 82 18 148/87 98 07/25/17 07:45 07/25/17 07:45 07/25/17 07:45 07/25/17 07:45 07/25/17 07:45 Intake and Output: 07/25/17 07/25/17 06:59 18:59 Intake Total 400 Output Total 550 Balance -150 - Medications Medications: Current Medications Amlodipine Besylate (Norvasc) 10 mg PO DAILY [facility] Aspirin (Ecotrin) 81 mg PO DAILY [facility] Last Admin: 07/25/17 08:33 Dose: 81 mg Atorvastatin Calcium (Lipitor) 80 mg PO HS [facility] Last Admin: 07/24/17 21:14 Dose: 80 mg Ferrous Sulfate (Feosol Liq) 300 mg PO DAILY [facility] Last Admin: 07/25/17 08:33 Dose: 300 mg Finasteride (Proscar) 5 mg PO DAILY [facility] Last Admin: 07/25/17 08:33 Dose: 5 mg Fludrocortisone Acetate (Florinef) 0.1 mg PO DAILY [facility] Last Admin: 07/25/17 08:33 Dose: 0.1 mg Lactobacillus Acidophilus (Bacid Acidophilus) 1 cap PO BID [facility] Last Admin: 07/25/17 08:32 Dose: 1 cap Levetiracetam (Keppra) 500 mg PO BID [facility] Last Admin: 07/25/17 08:33 Dose: 500 mg Midodrine (Proamatine) 10 mg PO Q12 [facility] Last Admin: 07/25/17 08:33 Dose: 10 mg Tamsulosin HCl (Flomax) 0.4 mg PO DAILY@2100 [facility] Last Admin: 07/24/17 21:14 Dose: 0.4 mg - Labs Labs: 07/25/17 05:20 07/19/17 06:00 PT 13.0 Seconds (9.8-13.1) 07/04/17 05:25 INR 1.2 (0.9-1.2) 07/04/17 05:25 APTT 30.3 Seconds (25.6-37.1) 07/04/17 05:25 - Constitutional Appears: No Acute Distress - Head Exam Head Exam: NORMAL INSPECTION - Eye Exam Pupil Exam: PERRL - Neurological Exam Neurological Exam: Alert, Awake, Oriented x3 Neuro motor strength exam: Left Upper Extremity: 5, Right Upper Extremity: 2/1, Left Lower Extremity: 5, Right Lower Extremity: 3 Additional comments: Neurological unchanged from previous examination. Assessment and Plan (1) CVA (cerebral vascular accident) Assessment & Plan: Case discussed with Dr. Kevin, continue all current medical, physical, occupational, and speech therapies. Recommend glycemic control, hydration, and keep head of bed elevated at least 30 degrees. Status: Acute
--- NOTE | 2017-07-25 15:23 | CP.PCM.PN ---
Subjective - Date & Time of Evaluation Date of Evaluation: 07/25/17 Time of Evaluation: 15:23 - Subjective Subjective: Patient seen in speech therapy doing well no CP/SOB remains motivated but still not safe for d/c home continue current care Objective - Vital Signs/Intake and Output Vital Signs (last 24 hours): Temp Pulse Resp BP Pulse Ox 97.3 F L 82 18 148/87 98 07/25/17 07:45 07/25/17 07:45 07/25/17 07:45 07/25/17 07:45 07/25/17 07:45 Intake and Output: 07/25/17 07/25/17 06:59 18:59 Intake Total 400 Output Total 550 Balance -150 - Medications Medications: Current Medications Amlodipine Besylate (Norvasc) 10 mg PO DAILY [facility] Aspirin (Ecotrin) 81 mg PO DAILY [facility] Last Admin: 07/25/17 08:33 Dose: 81 mg Atorvastatin Calcium (Lipitor) 80 mg PO HS [facility] Last Admin: 07/24/17 21:14 Dose: 80 mg Ferrous Sulfate (Feosol Liq) 300 mg PO DAILY [facility] Last Admin: 07/25/17 08:33 Dose: 300 mg Finasteride (Proscar) 5 mg PO DAILY [facility] Last Admin: 07/25/17 08:33 Dose: 5 mg Fludrocortisone Acetate (Florinef) 0.1 mg PO DAILY [facility] Last Admin: 07/25/17 08:33 Dose: 0.1 mg Lactobacillus Acidophilus (Bacid Acidophilus) 1 cap PO BID [facility] Last Admin: 07/25/17 08:32 Dose: 1 cap Levetiracetam (Keppra) 500 mg PO BID [facility] Last Admin: 07/25/17 08:33 Dose: 500 mg Midodrine (Proamatine) 10 mg PO Q12 [facility] Last Admin: 07/25/17 08:33 Dose: 10 mg Tamsulosin HCl (Flomax) 0.4 mg PO DAILY@2100 [facility] Last Admin: 07/24/17 21:14 Dose: 0.4 mg - Labs Labs: 07/25/17 05:20 07/19/17 06:00 PT 13.0 Seconds (9.8-13.1) 07/04/17 05:25 INR 1.2 (0.9-1.2) 07/04/17 05:25 APTT 30.3 Seconds (25.6-37.1) 07/04/17 05:25
--- NOTE | 2017-07-25 16:39 | CP.PCM.PN ---
Subjective - Date & Time of Evaluation Date of Evaluation: 07/25/17 Time of Evaluation: 12:10 - Subjective Subjective: Patient seen and examined. Still with bloody urine draining from catheter. Objective - Vital Signs/Intake and Output Vital Signs (last 24 hours): Temp Pulse Resp BP Pulse Ox 97.3 F L 82 18 148/87 98 07/25/17 07:45 07/25/17 07:45 07/25/17 07:45 07/25/17 07:45 07/25/17 07:45 Intake and Output: 07/25/17 07/25/17 06:59 18:59 Intake Total 400 Output Total 550 Balance -150 - Medications Medications: Current Medications Amlodipine Besylate (Norvasc) 10 mg PO DAILY [facility] Aspirin (Ecotrin) 81 mg PO DAILY [facility] Last Admin: 07/25/17 08:33 Dose: 81 mg Atorvastatin Calcium (Lipitor) 80 mg PO HS [facility] Last Admin: 07/24/17 21:14 Dose: 80 mg Ferrous Sulfate (Feosol Liq) 300 mg PO DAILY [facility] Last Admin: 07/25/17 08:33 Dose: 300 mg Finasteride (Proscar) 5 mg PO DAILY [facility] Last Admin: 07/25/17 08:33 Dose: 5 mg Fludrocortisone Acetate (Florinef) 0.1 mg PO DAILY [facility] Last Admin: 07/25/17 08:33 Dose: 0.1 mg Lactobacillus Acidophilus (Bacid Acidophilus) 1 cap PO BID [facility] Last Admin: 07/25/17 08:32 Dose: 1 cap Levetiracetam (Keppra) 500 mg PO BID [facility] Last Admin: 07/25/17 08:33 Dose: 500 mg Midodrine (Proamatine) 10 mg PO Q12 [facility] Last Admin: 07/25/17 08:33 Dose: 10 mg Tamsulosin HCl (Flomax) 0.4 mg PO DAILY@2100 [facility] Last Admin: 07/24/17 21:14 Dose: 0.4 mg - Labs Labs: 07/25/17 05:20 07/19/17 06:00 PT 13.0 Seconds (9.8-13.1) 07/04/17 05:25 INR 1.2 (0.9-1.2) 07/04/17 05:25 APTT 30.3 Seconds (25.6-37.1) 07/04/17 05:25 - Constitutional Appears: No Acute Distress - Head Exam Head Exam: ATRAUMATIC - Eye Exam Eye Exam: absent: Scleral icterus - ENT Exam ENT Exam: Mucous Membranes Moist - Neck Exam Neck Exam: absent: Meningismus - Respiratory Exam Respiratory Exam: absent: Rales, Rhonchi, Wheezes, Respiratory Distress - Cardiovascular Exam Cardiovascular Exam: REGULAR RHYTHM, +S1, +S2 - GI/Abdominal Exam GI & Abdominal Exam: Soft. absent: Tenderness - Rectal Exam Rectal Exam: Deferred - Neurological Exam Neurological Exam: Alert, Oriented x3 - Psychiatric Exam Psychiatric exam: Normal Affect - Skin Skin Exam: Dry, Intact Assessment and Plan - Assessment and Plan (Free Text) Assessment: 77 yo male admitted at [facility] on 06/23/17 because of Acute CVA with right facial droop and right sided weakness. Hospital stay was complicated with hematuria. CT scan of Abdomen/Pelvis showed a "Pelvic mass". Cystoscopy with evacuation of clots and fulguration of prostate bleeding was done by Dr Nettie Hernandez, urologist. Patient also received 7 units of PRBC and 2 units of FFP plus 1 unit of Platelet. Indwelling catheter was left in place until patient was transferred to Acute Rehab for continuation of PT/OT. As per Dr. Hernandez, patient is to continue indwelling catheter during rehab stay. 1. Acute CVA continue ASA, Lipitor Dr Lake on neuro consult Dr Prabhakar on physiatry consult continue PT, OT and ST had [facility] on 07/05/2017 because an episode of unresponsiveness continue Keppra 500mg PO BID per neuro recommendation 2. Hematuria bloody urine noted on catheter bag Bladder mass noted on CT scan of Abd/Pelvis done at [facility] CT scan of Abd/Pelvis with/without IV contrast: showed no pelvic mass but has severe mural thickening of the bladder wall and moderate enlargement of the prostate gland Dr Nettie Hernandez, who is remotely following the patient and who requested the repeat scan made aware of the result. He advised to keep the indwelling catheter until the patient is able to ambulate Dr Nettie Hernandez [phone] 3. Orthostatic Hypotension BP more stable Flomax reduced to once a day continue Midodrine and Florinef 4. HTN BP stable continue Amlodipine 10mg PO daily 5.Acute Blood Loss Anemia received Venofer and 7 units of PRBC continue Feosol PO BID 6. DVT prophylaxis anticoagulant and anti-platelets on hold because of hematuria venodyne boots while in bed
[2017-07-26] MEDS: Lactobacillus Acidophilus 500 MU Cap PO SCH ×2 (08:40→16:47)
[2017-07-26] MEDS: Ferrous Sulfate 300 mg/5 mL Liq UD PO SCH (08:40)
[2017-07-26 19:58] VITALS: RESP 20
[2017-07-27] MEDS: Lactobacillus Acidophilus 500 MU Cap PO SCH (08:24)
[2017-07-27] MEDS: Ferrous Sulfate 300 mg/5 mL Liq UD PO SCH (08:24)
[2017-07-27 08:53] VITALS: BP 147/79; PULSE 91; TEMP 98.2; O2SAT 96
--- NOTE | 2017-07-27 10:53 | CP.PCM.DIS ---
Provider - Provider Date of Admission: 07/03/17 20:11 Attending physician: Tre Ambriz DO Primary care physician: None Consults: Neurology consult physiatry consult Time Spent in preparation of Discharge (in minutes): 10 Hospital Course - Lab Results Lab Results: Micro Results 07/07/17 14:00 Blood Blood Culture - Final NO GROWTH AFTER 5 DAYS 07/07/17 14:00 Blood Gram Stain - Final TEST NOT PERFORMED 07/07/17 13:47 Blood Blood Culture - Final NO GROWTH AFTER 5 DAYS 07/07/17 13:47 Blood Gram Stain - Final TEST NOT PERFORMED 07/07/17 16:43 Urine,Robles Urine Culture - Final No Growth (<1,000 CFU/ML) Most Recent Lab Values WBC 5.4 K/uL (4.8-10.8) 07/25/17 05:20 RBC 3.67 Mil/uL (4.40-5.90) L 07/25/17 05:20 Hgb 10.5 g/dL (12.0-18.0) L 07/25/17 05:20 Hct 30.9 % (35.0-51.0) L 07/25/17 05:20 MCV 84.1 fl (80.0-94.0) 07/25/17 05:20 MCH 28.6 pg (27.0-31.0) 07/25/17 05:20 MCHC 34.0 g/dL (33.0-37.0) 07/25/17 05:20 RDW 15.7 % (11.5-14.5) H 07/25/17 05:20 Plt Count 223 K/uL (130-400) 07/25/17 05:20 MPV 6.6 fl (7.2-11.7) L 07/12/17 06:00 Neut % (Auto) 74.5 % (50.0-75.0) 07/12/17 06:00 Lymph % (Auto) 13.6 % (20.0-40.0) L 07/12/17 06:00 [place] % (Auto) 10.1 % (0.0-10.0) H 07/12/17 06:00 Eos % (Auto) 0.7 % (0.0-4.0) 07/12/17 06:00 Baso % (Auto) 1.1 % (0.0-2.0) 07/12/17 06:00 Neut # (Auto) 4.2 K/uL (1.8-7.0) 07/12/17 06:00 Lymph # (Auto) 0.8 K/uL (1.0-4.3) L 07/12/17 06:00 [place] # (Auto) 0.6 K/uL (0.0-0.8) 07/12/17 06:00 Eos # (Auto) 0.0 K/uL (0.0-0.7) 07/12/17 06:00 Baso # (Auto) 0.1 K/uL (0.0-0.2) 07/12/17 06:00 Neutrophils % (Manual) 87 % (42-75) H 07/05/17 08:00 Lymphocytes % (Manual) 6 % (20-50) L 07/05/17 08:00 Monocytes % (Manual) 7 % (0-10) 07/05/17 08:00 Toxic Granulation Present 07/05/17 08:00 Platelet Estimate Slightly increased (NORMAL) H 07/05/17 08:00 Plt Clumps, EDTA TEST NOT PERFORMED 07/05/17 08:00 Large Platelets Present 07/05/17 08:00 Giant Platelets Present 07/05/17 08:00 Poikilocytosis (manual Slight 07/05/17 08:00 Anisocytosis (manual) Slight 07/05/17 08:00 Ovalocytes Slight 07/05/17 08:00 [place] Cells Slight 07/05/17 08:00 Acanthocytes (Spur) Slight 07/05/17 08:00 Schistocytes Slight 07/05/17 08:00 PT 13.0 Seconds (9.8-13.1) 07/04/17 05:25 INR 1.2 (0.9-1.2) 07/04/17 05:25 APTT 30.3 Seconds (25.6-37.1) 07/04/17 05:25 Sodium 139 mmol/l (132-148) 07/19/17 06:00 Potassium 3.7 MMOL/L (3.6-5.0) 07/19/17 06:00 Chloride 108 mmol/L (98-107) H 07/19/17 06:00 Carbon Dioxide 26 mmol/L (22-30) 07/19/17 06:00 Anion Gap 9 (10-20) L 07/19/17 06:00 BUN 16 mg/dl (9-20) 07/19/17 06:00 Creatinine 0.8 mg/dl (0.8-1.5) 07/19/17 06:00 Est GFR ( Amer) > 60 07/19/17 06:00 Est GFR (Non-Af Amer) > 60 07/19/17 06:00 POC Glucose (mg/dL) 140 mg/dL (65-110) H 07/06/17 21:12 Random Glucose 81 mg/dL (75-110) 07/19/17 06:00 Calcium 8.0 mg/dL (8.4-10.2) L 07/19/17 06:00 Phosphorus 3.0 mg/dl (2.5-4.5) 07/05/17 10:00 Magnesium 2.1 MG/DL (1.6-2.3) 07/05/17 08:00 Total Bilirubin 0.4 mg/dl (0.2-1.3) 07/18/17 11:13 AST 52 U/L (17-59) 07/18/17 11:13 ALT 44 U/L (21-72) 07/18/17 11:13 Alkaline Phosphatase 73 U/L (38-126) 07/18/17 11:13 Troponin I < 0.0120 ng/mL (0.00-0.120) 07/05/17 08:00 Total Protein 6.7 G/DL (6.3-8.2) 07/18/17 11:13 Albumin 3.0 g/dL (3.5-5.0) L 07/18/17 11:13 Globulin 3.7 gm/dL (2.2-3.9) 07/18/17 11:13 Albumin/Globulin Ratio 0.8 (1.0-2.1) L 07/18/17 11:13 Prostate Specific Ag 14.1 ng/ML (0.00-4.0) H 07/09/17 05:30 Free PSA 1.8 ng/mL 07/11/17 11:04 % Free PSA Not calculated % (calc) (>25) 07/11/17 11:04 Total PSA 18.9 ng/mL (< or = 4.0) H 07/11/17 11:04 TSH 3rd Generation 1.74 mIU/ML (0.46-4.68) 07/05/17 10:00 Cortisol AM Sample 18.8 ug/dL (4.46-22.7) 07/05/17 08:00 Urine Color Yellow (YELLOW) 07/07/17 17:10 Urine Clarity Slighty-cloudy (Clear) 07/07/17 17:10 Urine pH 6.0 (5.0-8.0) 07/07/17 17:10 Ur Specific [place] 1.017 (1.003-1.030) 07/07/17 17:10 Urine Protein 100 mg/dL (NEGATIVE) 07/07/17 17:10 Urine Glucose (UA) Neg mg/dL (Normal) 07/07/17 17:10 Urine Ketones Negative mg/dL (NEGATIVE) 07/07/17 17:10 Urine Blood Moderate (NEGATIVE) 07/07/17 17:10 Urine Nitrate Negative (NEGATIVE) 07/07/17 17:10 Urine Bilirubin Negative (NEGATIVE) 07/07/17 17:10 Urine Urobilinogen 0.2-1.0 mg/dL (0.2-1.0) 07/07/17 17:10 Ur Leukocyte Esterase Trace [place]/uL (Negative) 07/07/17 17:10 Urine RBC (Auto) 143 /hpf (0-3) H 07/07/17 17:10 Urine Microscopic WBC 13 /hpf (0-5) H 07/07/17 17:10 Urine Bacteria Rare (<OCC) 07/07/17 17:10 Blood Type A POSITIVE 07/05/17 08:00 Blood Type Confirm A POSITIVE 07/05/17 10:14 Antibody Screen Negative 07/05/17 08:00 BBK History Checked No verified bt 07/05/17 08:00 - Hospital Course Hospital Course: 77 yo male admitted at [facility] on 06/23/17 because of Acute CVA with right facial droop and right sided weakness. Hospital stay was complicated with hematuria. CT scan of Abdomen/Pelvis showed a "Pelvic mass". Cystoscopy with evacuation of clots and fulguration of prostate bleeding was done by Dr Nettie Hernandez, urologist. Patient also received 7 units of PRBC and 2 units of FFP plus 1 unit of Platelet. Indwelling catheter was left in place until patient was transferred to Acute Rehab for continuation of PT/OT. As per Dr. Hernandez, patient is to continue indwelling catheter during rehab stay. In acute rehab he participated with PT and now for discharge to [facility]. During this stay he was noted to have orthostathic BP so was started on Midodrine PO. Will discharge patient today to [facility] in stable conditions. 1. Acute CVA continue ASA, Lipitor Dr Lake on neuro consult Dr Prabhakar on physiatry consult Participated with PT well in acute rehab and today for discharge to [facility] continue Keppra 500mg PO BID per neuro recommendation 2. Hematuria- resolved Bladder mass noted on CT scan of Abd/Pelvis done at [facility] CT scan of Abd/Pelvis with/without IV contrast: showed no pelvic mass but has severe mural thickening of the bladder wall and moderate enlargement of the prostate gland Dr Nettie Hernandez, who is remotely following the patient and who requested the repeat scan made aware of the result. He advised to keep the indwelling catheter until the patient is able to ambulate Dr Nettie Hernandez [phone] 3. Orthostatic Hypotension BP more stable Flomax reduced to once a day continue Midodrine and Florinef 4. HTN BP stable continue Amlodipine 10mg PO daily 5.Acute Blood Loss Anemia received Venofer and 7 units of PRBC continue Feosol PO BID 6. DVT prophylaxis anticoagulant and anti-platelets on hold because of hematuria venodyne boots while in bed Discharge Exam - Head Exam Head Exam: ATRAUMATIC, NORMOCEPHALIC - Eye Exam Eye Exam: PERRL Pupil Exam: NORMAL ACCOMODATION - ENT Exam ENT Exam: Mucous Membranes Moist, Normal Exam - Neck Exam Neck exam: Full Rom, Normal Inspection - Respiratory Exam Respiratory Exam: Clear to PA & Lateral, NORMAL BREATHING PATTERN. absent: Rales, Rhonchi, Wheezes - Cardiovascular Exam Cardiovascular Exam: REGULAR RHYTHM, RRR, +S1, +S2. absent: JVD - GI/Abdominal Exam GI & Abdominal Exam: Normal Bowel Sounds, Soft. absent: Distended, Guarding, Rebound, Tenderness - Rectal Exam Rectal Exam: Deferred - Extremities Exam Extremities exam: normal inspection, pedal pulses present - Back Exam Back exam: NORMAL INSPECTION - Neurological Exam Neurological exam: Alert Additional comments: right side weakness right facial droop slurred speech - Skin Skin Exam: Dry, Normal Color, Warm Discharge Plan - Follow Up Plan Condition: GOOD Disposition: TRANSF TO SNF Patient education suggested?: Yes
== END 2017-07-27 13:05 | DRG 57 ==
PROVIDERS: ADMIT Internal Medicine; ATTEND Internal Medicine
PROC: F07Z9FZ Gait Training/Functional Ambulation Treatment using Assistive, Adaptive, Supportive or Protective Equipment (ICD-10-PCS; principal; 2017-07-03)
PROC: F06Z6MZ Communicative/Cognitive Integration Skills Treatment using Augmentative / Alternative Communication Equipment (ICD-10-PCS; 2017-07-03)
PROC: F08Z4FZ Home Management Treatment using Assistive, Adaptive, Supportive or Protective Equipment (ICD-10-PCS; 2017-07-03)
PROC: F07M6FZ Therapeutic Exercise Treatment of Musculoskeletal System - Whole Body using Assistive, Adaptive, Supportive or Protective Equipment (ICD-10-PCS; 2017-07-04)
DX: I69.351 Hemiplegia and hemiparesis following cerebral infarction affecting right dominant side (principal); I69.392 Facial weakness following cerebral infarction; I69.322 Dysarthria following cerebral infarction; I95.1 Orthostatic hypotension; R26.89 Other abnormalities of gait and mobility; D50.0 Iron deficiency anemia secondary to blood loss (chronic); R31.9 Hematuria, unspecified; I10 Essential (primary) hypertension; N40.1 Benign prostatic hyperplasia with lower urinary tract symptoms; R33.8 Other retention of urine; N32.89 Other specified disorders of bladder; Z79.82 Long term (current) use of aspirin; Z87.891 Personal history of nicotine dependence

== ENCOUNTER 2018-02-25 15:30 | Inpatient (IN) | payer MEDICARE, OTHER ==
[2018-02-25 23:48] VITALS: BMI 18.0
--- NOTE | 2018-02-26 00:15 | CP.PCM.HP ---
History of Present Illness - History of Present Illness History of Present Illness: CC: rehab s/p seizure HPI: This is a 77 y/o male with prior L sided CVA with RUE/RLE deficits, HTN, and BPH who presented to [facility] with new onset seizure. Apparently he was in Status Epilepticus and needed to be intubated and put on a vent. He was initially in the ICU but his condition improved and he was eventually transferred to the floor. He had a full w/u there including CT head, CTA head, EEG and Echo. There were no acute findings, but there was encephalomalacia on head CT on left presumably due to prior CVA. Patient was eval by neurology and started on Keppra. PCP: [facility] ROS: 14 systems reviewed, negative other than HPI MHx: As above SHx: TURP in 2018 Allergies: NKDA Medications: per med rec, recently started on Keppra Family Hx: Mother-- MS; no family Hx of seizures Social Hx: No tobacco, EtOH; patient lives at home with family Present on Admission - Present on Admission Any Indicators Present on Admission: No Past Patient History - Infectious Disease Hx of Infectious Diseases: None - Past Medical History & Family History Past Medical History?: Yes - Past Social History Smoking Status: Former Smoker - CARDIAC Hx Hypertension: Yes - PULMONARY Hx Respiratory Disorders: No - NEUROLOGICAL HX Cerebrovascular Accident: Yes (R moreno) - HEENT Hx HEENT Problems: No - RENAL Hx Chronic Kidney Disease: No - ENDOCRINE/METABOLIC Hx Endocrine Disorders: No - HEMATOLOGICAL/ONCOLOGICAL Hx Blood Disorders: Yes - INTEGUMENTARY Hx Dermatological Problems: No - MUSCULOSKELETAL/RHEUMATOLOGICAL Hx Falls: Yes - GASTROINTESTINAL Hx Gastrointestinal Disorders: Yes (CONSTIPATION) - GENITOURINARY/GYNECOLOGICAL Hx Genitourinary Disorders: Yes (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) - PSYCHIATRIC Hx Substance Use: No - SURGICAL HISTORY Hx Surgeries: Yes - ANESTHESIA Hx Anesthesia: Yes Hx Anesthesia Reactions: No Hx Malignant Hyperthermia: No Meds Allergies/Adverse Reactions: Allergies Allergy/AdvReac Type Severity Reaction Status Date / Time No Known Allergies Allergy Verified 02/25/18 23:48 Physical Exam - Constitutional Appears: No Acute Distress - Head Exam Head Exam: ATRAUMATIC, NORMOCEPHALIC - Eye Exam Eye Exam: EOMI, PERRL - ENT Exam ENT Exam: Mucous Membranes Moist Additional comments: poor dentition - Respiratory Exam Respiratory Exam: Clear to Auscultation Bilateral, NORMAL BREATHING PATTERN - Cardiovascular Exam Cardiovascular Exam: REGULAR RHYTHM, +S1, +S2 - GI/Abdominal Exam GI & Abdominal Exam: Normal Bowel Sounds, Soft - Extremities Exam Extremities exam: Positive for: normal inspection Additional comments: RUE and RLE with slight weakness compared to L - Neurological Exam Neurological exam: Alert, CN II-XII Intact, Oriented x3 - Psychiatric Exam Psychiatric exam: Normal Affect, Normal Mood - Skin Skin Exam: Dry, Warm Assessment & Plan (1) Seizure disorder Assessment and Plan: 77 y/o male with prior CVA and new onset seizures as well as deconditioning/gait abn here for rehab. -Continue Keppra 500 mg PO BID -Cont ASA, Statin for CVA Hx -Patient BP medications d/c'ed on discharge; f/u BPs for now -Cont Flomax for BPH -Rehab consult in AM -SCDs for DVT PPx Status: Acute (2) CVA (cerebral vascular accident) Status: Acute (3) HTN (hypertension) Status: Acute (4) Gait abnormality Status: Acute (5) BPH (benign prostatic hyperplasia) Status: Acute (6) DVT prophylaxis Status: Acute
[2018-02-26 06:27] LABS: HEMOGLOBIN 12.7 g/dL (12.0-18.0); MEAN CELL VOLUME 83.3 fl (80.0-94.0); MEAN CORPUSCULAR HEMOGLOBIN 27.4 pg (27.0-31.0); MEAN CORPUSCULAR HGB CONC 32.9 g/dL (33.0-37.0); RBC 4.62 Mil/uL (4.40-5.90); RED CELL DISTRIBUTION WIDTH 14.3 % (11.5-14.5); WHITE BLOOD COUNT 3.2 K/uL (4.8-10.8)
[2018-02-26 06:36] LABS: BLOOD UREA NITROGEN 25 mg/dl (9-20)
[2018-02-26 07:15] LABS: GFR NON-AFRICAN AMERICAN > 60
[2018-02-26] MEDS ORDERED: Pantoprazole 40 mg EC Tab PO SCH (07:30)
[2018-02-26] MEDS: Divalproex 500 mg DR(BID formulation) PO SCH ×2 (08:07→16:07)
--- NOTE | 2018-02-26 18:36 | CP.PCM.CON ---
History of Present Illness - History of Present Illness History of Present Illness: Dr Prabhakar PMR consultation on Samuel Noriega, born 1940, who has been admitted again to [facility] for acute inpatient rehabilitation following an admission at [facility] after status epilepticus which necessitated intubation. He has since b een extubated. No acute findings on head CT but given past history of left CVA and right HP he was significantly limited in his function requiring acute inpatient rehabilitation. Left hand dominant Review of Systems - Constitutional Constitutional: absent: Chills - EENT Eyes: absent: Change in Vision Ears: absent: Ear Discharge, Ear Pain Nose/Mouth/Throat: absent: Nasal Congestion - Cardiovascular Cardiovascular: absent: Chest Pain - Respiratory Respiratory: absent: Dyspnea, Hemoptysis - Gastrointestinal Gastrointestinal: absent: Belching, Constipation - Musculoskeletal Musculoskeletal: Limited Range of Motion (right hand). absent: Back Pain - Integumentary Integumentary: absent: Bleeding Lesions - Neurological Neurological: Lack of Coordination (right hand and LE ). absent: Abnormal Movements, Confusion, Tremor, Vertigo Past Patient History - Infectious Disease Hx of Infectious Diseases: None - Past Medical History & Family History Past Medical History?: Yes - Past Social History Smoking Status: Former Smoker Drugs: Denies Home Situation {Lives}: With Family (stairs) - CARDIAC Hx Hypertension: Yes - PULMONARY Hx Respiratory Disorders: No - NEUROLOGICAL HX Cerebrovascular Accident: Yes - HEENT Hx HEENT Problems: No - RENAL Hx Chronic Kidney Disease: No - ENDOCRINE/METABOLIC Hx Endocrine Disorders: No - HEMATOLOGICAL/ONCOLOGICAL Hx Blood Disorders: Yes - INTEGUMENTARY Hx Dermatological Problems: No - MUSCULOSKELETAL/RHEUMATOLOGICAL Hx Arthritis: Yes - GASTROINTESTINAL Hx Gastrointestinal Disorders: Yes (CONSTIPATION) - GENITOURINARY/GYNECOLOGICAL Hx Genitourinary Disorders: Yes (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) - PSYCHIATRIC Hx Substance Use: No - SURGICAL HISTORY Hx Surgeries: Yes - ANESTHESIA Hx Anesthesia: Yes Hx Anesthesia Reactions: No Hx Malignant Hyperthermia: No Meds Allergies/Adverse Reactions: Allergies Allergy/AdvReac Type Severity Reaction Status Date / Time No Known Allergies Allergy Verified 02/25/18 23:48 - Medications Medications: Current Medications Amlodipine Besylate (Norvasc) 10 mg PO DAILY [facility] Last Admin: 02/26/18 12:09 Dose: 10 mg Aspirin (Aspirin Chewable) 81 mg PO DAILY [facility] Last Admin: 02/26/18 08:07 Dose: 81 mg Atorvastatin Calcium (Lipitor) 20 mg PO DIN [facility] Last Admin: 02/26/18 16:07 Dose: 20 mg Divalproex Sodium (Depakote Dr(*Bid*)) 500 mg PO BID [facility] Last Admin: 02/26/18 16:07 Dose: 500 mg Tamsulosin HCl (Flomax) 0.4 mg PO [facility] Physical Exam - Constitutional Appears: Non-toxic - Head Exam Head Exam: ATRAUMATIC, NORMAL INSPECTION, NORMOCEPHALIC - Eye Exam Eye Exam: EOMI - ENT Exam ENT Exam: Mucous Membranes Moist - Respiratory Exam Respiratory Exam: NORMAL BREATHING PATTERN - Cardiovascular Exam Cardiovascular Exam: REGULAR RHYTHM - GI/Abdominal Exam GI & Abdominal Exam: absent: Distended - Extremities Exam Extremities exam: Negative for: calf tenderness, pedal edema - Neurological Exam Neurological exam: Alert, Oriented x3 - Psychiatric Exam Psychiatric exam: Normal Affect, Normal Mood Results - Vital Signs Recent Vital Signs: Last Vital Signs Temp 97.3 F L 02/26/18 07:26 Pulse 78 02/26/18 12:09 Resp 20 02/26/18 07:26 BP 148/85 02/26/18 12:09 Pulse Ox 94 L 02/26/18 08:40 - Labs Result Diagrams: 02/26/18 05:20 02/26/18 05:20 Labs: Laboratory Results - last 24 hr 02/26/18 02/26/18 05:20 05:20 WBC 3.2 L RBC 4.62 Hgb 12.7 D Hct 38.5 MCV 83.3 MCH 27.4 MCHC 32.9 L RDW 14.3 Plt Count 250 Sodium 131 L Potassium 4.5 Chloride 97 L Carbon Dioxide 28 Anion Gap 11 BUN 25 H Creatinine 1.0 Est GFR ( Amer) > 60 Est GFR (Non-Af Amer) > 60 Random Glucose 73 L Calcium 9.0 Assessment & Plan - Assessment and Plan (Free Text) Assessment: Increased tone Nara II in the right hand/wrist. Nara I biceps He would be an excellent candidate to do BOTOX to the right wrist flexors and f geovanna flexors given deformity and tightness left UE/LE WNL Left LE 4-/5 grossly + expressive aphasia, moderate. Good comprehension PT/OT to continue to help increase functional independence Team conference for d/c planning Pain: controlled Vascular: no evidence of DVT GI: No evidence of constipation or diarrhea Patient is an excellent acute rehabilitation candidate and will have focused PT, OT and recreational therapy to help facilitate a safe and appropriate d/c plan Impairment code: 03.9
--- NOTE | 2018-02-26 18:56 | PCM.OPOC ---
Physiatry Overall Plan of Care - Overall Plan of Care Estimated Length of Stay in Weeks: 3 Rehab Impairment: Mobility, Gait, Cognition, Speech, Balance Etiologic Diagnosis: Cerebrovascular Accident Rehab/Medical Prognosis: Fair - Anticipated Interventions Physical Therapy:: Yes Occupational Therapy:: Yes Speech Therapy:: Yes Recreational Therapy:: Yes - Therapy Goals Bed Mobility: Supervision Ambulation: Supervision Functional Positional Changes:: Supervision - Discharge Plan Discharge Destination: Home
[2018-02-27] MEDS: Divalproex 500 mg DR(BID formulation) PO SCH ×2 (09:13→16:39)
--- NOTE | 2018-02-27 13:08 | CP.PCM.PN ---
Subjective - Date & Time of Evaluation Date of Evaluation: 02/27/18 Time of Evaluation: 10:20 - Subjective Subjective: Patient seen and examined. Denied any complaint. Objective - Vital Signs/Intake and Output Vital Signs (last 24 hours): Temp Pulse Resp BP Pulse Ox 97.8 F 75 18 121/63 95 02/27/18 07:30 02/27/18 09:13 02/27/18 07:30 02/27/18 09:13 02/27/18 07:30 - Medications Medications: Current Medications Amlodipine Besylate (Norvasc) 10 mg PO DAILY [facility] Last Admin: 02/27/18 09:13 Dose: 10 mg Aspirin (Aspirin Chewable) 81 mg PO DAILY [facility] Last Admin: 02/27/18 09:12 Dose: 81 mg Atorvastatin Calcium (Lipitor) 20 mg PO DIN [facility] Last Admin: 02/26/18 16:07 Dose: 20 mg Divalproex Sodium (Depakote Dr(*Bid*)) 500 mg PO BID [facility] Last Admin: 02/27/18 09:13 Dose: 500 mg Tamsulosin HCl (Flomax) 0.4 mg PO HS [facility] Last Admin: 02/26/18 21:03 Dose: 0.4 mg - Labs Labs: 02/26/18 05:20 02/26/18 05:20 - Constitutional Appears: No Acute Distress - Head Exam Head Exam: ATRAUMATIC - Eye Exam Eye Exam: absent: Scleral icterus - ENT Exam ENT Exam: Mucous Membranes Moist - Neck Exam Neck Exam: absent: Meningismus - Respiratory Exam Respiratory Exam: absent: Rales, Rhonchi, Wheezes, Respiratory Distress - Cardiovascular Exam Cardiovascular Exam: REGULAR RHYTHM, +S1, +S2 - GI/Abdominal Exam GI & Abdominal Exam: Soft. absent: Tenderness - Rectal Exam Rectal Exam: Deferred - Neurological Exam Neurological Exam: Alert, Oriented x3 - Psychiatric Exam Psychiatric exam: Normal Affect - Skin Skin Exam: Dry, Intact Assessment and Plan - Assessment and Plan (Free Text) Assessment: 77 yo male with history of previous CVA with residual left sided weakness, HTN and BPH was recently admitted to [facility] because of new onset seizure. He was admitted to ICU and was prophylactically intubated. His condition improved and was transferred to acute rehab for therapy. 1. Seizure disorder Continue Keppra 500 mg PO BID continue PT/OT 2. HTN (hypertension) BP stable continue Amlodipine 3. Gait abnormality continue PT 4. BPH (benign prostatic hyperplasia) continue Flomax
--- NOTE | 2018-02-27 16:48 | CP.PCM.PN ---
Subjective - Date & Time of Evaluation Date of Evaluation: 02/27/18 Time of Evaluation: 16:47 - Subjective Subjective: Patient seen in PT gym NAD doing well ambulating 90' with Min A He still has significant room for improvement continue current care Objective - Vital Signs/Intake and Output Vital Signs (last 24 hours): Temp Pulse Resp BP Pulse Ox 97.8 F 83 18 108/54 L 97 02/27/18 07:30 02/27/18 09:17 02/27/18 07:30 02/27/18 09:17 02/27/18 09:17 - Medications Medications: Current Medications Amlodipine Besylate (Norvasc) 10 mg PO DAILY [facility] Last Admin: 02/27/18 09:13 Dose: 10 mg Aspirin (Aspirin Chewable) 81 mg PO DAILY [facility] Last Admin: 02/27/18 09:12 Dose: 81 mg Atorvastatin Calcium (Lipitor) 20 mg PO DIN [facility] Last Admin: 02/27/18 16:40 Dose: 20 mg Divalproex Sodium (Lesa Russo(*Bid*)) 500 mg PO BID [facility] Last Admin: 02/27/18 16:39 Dose: 500 mg Tamsulosin HCl (Flomax) 0.4 mg PO HS [facility] Last Admin: 02/26/18 21:03 Dose: 0.4 mg - Labs Labs: 02/26/18 05:20 02/26/18 05:20
[2018-02-28] MEDS: Divalproex 500 mg DR(BID formulation) PO SCH ×2 (09:01→17:18)
[2018-03-01] MEDS: Divalproex 500 mg DR(BID formulation) PO SCH ×2 (08:28→17:19)
--- NOTE | 2018-03-01 14:44 | CP.PCM.PN ---
Subjective - Date & Time of Evaluation Date of Evaluation: 02/28/18 Time of Evaluation: 08:45 - Subjective Subjective: no acute complaints at present Objective - Vital Signs/Intake and Output Vital Signs (last 24 hours): Temp Pulse Resp BP Pulse Ox 97.2 F L 88 19 100/52 L 99 03/01/18 08:29 03/01/18 08:29 03/01/18 08:29 03/01/18 08:29 03/01/18 08:29 - Medications Medications: Current Medications Amlodipine Besylate (Norvasc) 10 mg PO DAILY [facility] Last Admin: 03/01/18 08:28 Dose: Not Given Aspirin (Aspirin Chewable) 81 mg PO DAILY [facility] Last Admin: 03/01/18 08:28 Dose: 81 mg Atorvastatin Calcium (Lipitor) 20 mg PO DIN [facility] Last Admin: 02/28/18 17:18 Dose: 20 mg Divalproex Sodium (Depakote Dr(*Bid*)) 500 mg PO BID [facility] Last Admin: 03/01/18 08:28 Dose: 500 mg Tamsulosin HCl (Flomax) 0.4 mg PO HS [facility] Last Admin: 02/28/18 21:03 Dose: 0.4 mg - Labs Labs: 02/26/18 05:20 02/26/18 05:20 - Constitutional Appears: Well - Head Exam Head Exam: ATRAUMATIC - Eye Exam Eye Exam: EOMI, Normal appearance Pupil Exam: NORMAL ACCOMODATION - ENT Exam ENT Exam: Mucous Membranes Moist, Normal Exam - Neck Exam Neck Exam: Normal Inspection - Respiratory Exam Respiratory Exam: Clear to Ausculation Bilateral, NORMAL BREATHING PATTERN - Cardiovascular Exam Cardiovascular Exam: REGULAR RHYTHM - GI/Abdominal Exam GI & Abdominal Exam: Soft, Normal Bowel Sounds - Rectal Exam Rectal Exam: NORMAL INSPECTION - Exam External exam: NORMAL EXTERNAL EXAM - Extremities Exam Extremities Exam: Normal Capillary Refill - Back Exam Back Exam: NORMAL INSPECTION - Neurological Exam Neurological Exam: Alert Additional comments: patient with arm and leg weakness - Psychiatric Exam Psychiatric exam: Normal Affect - Skin Skin Exam: Normal Color Assessment and Plan (1) HTN (hypertension) Status: Acute (2) Seizure disorder Status: Acute (3) BPH (benign prostatic hyperplasia) Status: Acute (4) CVA (cerebral vascular accident) Assessment & Plan: plan for physical, occupational, rec therapy for range of motion, strengthening, transfers and gait training. Covering for Dr Prabhakar. Status: Acute (5) Gait abnormality Status: Acute (6) New onset seizure Status: Acute
[2018-03-02] MEDS: Divalproex 500 mg DR(BID formulation) PO SCH ×2 (08:37→17:39)
--- NOTE | 2018-03-02 18:25 | CP.PCM.PN ---
Subjective - Date & Time of Evaluation Date of Evaluation: 03/02/18 Time of Evaluation: 10:30 - Subjective Subjective: Patient was seen and examined during PT .Participating with PT. Hemodynamically stable, afebrile. No acute issues overnight. Feeling better . Still with weakness to right side Objective - Vital Signs/Intake and Output Vital Signs (last 24 hours): Temp Pulse Resp BP Pulse Ox 97.5 F L 98 H 20 112/65 96 03/02/18 07:35 03/02/18 08:43 03/02/18 07:35 03/02/18 08:43 03/02/18 07:35 - Medications Medications: Current Medications Amlodipine Besylate (Norvasc) 10 mg PO DAILY [facility] Last Admin: 03/02/18 08:36 Dose: 10 mg Aspirin (Aspirin Chewable) 81 mg PO DAILY [facility] Last Admin: 03/02/18 08:37 Dose: 81 mg Atorvastatin Calcium (Lipitor) 20 mg PO DIN [facility] Last Admin: 03/02/18 17:39 Dose: 20 mg Divalproex Sodium (Depakote Dr(*Bid*)) 500 mg PO BID [facility] Last Admin: 03/02/18 17:39 Dose: 500 mg Tamsulosin HCl (Flomax) 0.4 mg PO HS [facility] Last Admin: 03/01/18 21:09 Dose: 0.4 mg - Labs Labs: 02/26/18 05:20 02/26/18 05:20 - Constitutional Appears: Non-toxic, No Acute Distress - Head Exam Head Exam: ATRAUMATIC, NORMOCEPHALIC - Eye Exam Eye Exam: EOMI, PERRL Pupil Exam: NORMAL ACCOMODATION - ENT Exam ENT Exam: Mucous Membranes Moist, Normal Exam - Neck Exam Neck Exam: Full ROM, Normal Inspection - Respiratory Exam Respiratory Exam: Clear to Ausculation Bilateral, NORMAL BREATHING PATTERN. absent: Rales, Rhonchi, Wheezes - Cardiovascular Exam Cardiovascular Exam: REGULAR RHYTHM, RRR, +S1, +S2. absent: JVD - GI/Abdominal Exam GI & Abdominal Exam: Soft, Normal Bowel Sounds. absent: Distended, Guarding, Tenderness, Rebound - Rectal Exam Rectal Exam: Deferred - Extremities Exam Extremities Exam: Full ROM, Normal Capillary Refill, Normal Inspection. absent: Pedal Edema - Back Exam Back Exam: NORMAL INSPECTION - Neurological Exam Neurological Exam: Alert, Awake Additional comments: right side weakness - Psychiatric Exam Psychiatric exam: Normal Affect - Skin Skin Exam: Dry, Normal Color, Warm Assessment and Plan - Assessment and Plan (Free Text) Assessment: 77 yo male with history of previous CVA with residual right sided weakness, HTN and BPH was [place] [facility] [place]. He was admi tted to ICU and was intubated. His condition improved and was transferred to acute rehab for therapy. At present in acute rehab , participating with PT and improving . 1. Seizure disorder Continue Keppra 500 mg PO BID continue PT/OT 2. HTN (hypertension) BP stable continue Amlodipine 3. Gait abnormality/ history CVA with right side weakness continue PT on Statin , ASA and BP control 4. BPH (benign prostatic hyperplasia) continue Flomax 4. DVT prophylaxis SCD
[2018-03-03] MEDS: Divalproex 500 mg DR(BID formulation) PO SCH ×2 (08:04→17:07)
--- NOTE | 2018-03-03 13:22 | PCM.PSYTMC ---
Acute Rehab Team Conference - - Vital Signs: Vital Signs (Last 8 Hours): Vital Signs 03/03/18 03/03/18 03/03/18 07:34 08:06 08:51 Temperature 98 F Pulse Rate 78 69 89 Respiratory 20 Rate Blood Pressure 132/88 133/69 115/61 O2 Sat by Pulse 95 Oximetry 03/03/18 10:00 Temperature 98 F Pulse Rate 70 Respiratory 20 Rate Blood Pressure 129/70 O2 Sat by Pulse 97 Oximetry Pain: 0 - Precautions: Precautions: Fall Prevention - Patient/Family Teaching: Other Intervention:: re: fall precaution. needs reinforcement. - Provider: Registered Nurse:: Jaydon Gardner Physical Therapy - Bed Mobility Bed Mobility: Minimal Assistance - Transfers Wheelchair to Mat: Verbal Cues, Minimal Assistance Sit to Stand: Verbal Cues, Minimal Assistance - Ambulation Level of Assistance: Verbal Cues, Minimal Assistance Distance (ft.): 100 Assistive Devices: Wide base quad cane - Stair Negotiation Stairs: Level of Assistance: Moderate Assistance Number of Stairs: 3 Handrails: Left Stairs: Assistive Devices: Left Handrail - Standing Balance Static Stand: Contact Guard Assist - Pain Pain (assessed during therapy session): 0 - Insight/Carryover Insight/Carryover: Good - Patient/Family Education Comment: POC, safety, d/c recommendations - Assessment/Plan Assessment: Pt participated in 90 minute PT tx sessions focusing on BLE strengthening exercises, balance and endurance activities, and functional mobility training. Pts son brought in MAFO; however, unable to fit onto foot with sneaker. Used trial MAFO for session. Pt performed transfers with min A ; ambulated with min A using WBQC. Pt is highly motivated and will continue to benefit from skilled PT intervention to addres deficits, reduce fall risk, and maximize functional independence. - Goals Timeframe: 2 weeks Goals: SIt < > supine mod I. Functional transfers with supervision using quad cane. Pt will ambulate 200 ft with supervision with R AFO and quad cane. Pt will ascend/descend flight of stairs with one handrail and CGA - Provider Physical Therapist:: Gayle Estrada License Number:: [id number] Occupational Therapy - Arousal/Attention/Orientation Level of Consciousness: Awake, Alert, Forgetful Patient Orientation: Person, Place, Time - ADL/IADL Self Feeding: Supervision, Verbal Cues, Set-up Help Grooming: Minimal Assistance Bathing-Upper Ext: Minimal Assistance Bathing-Lower Ext: Minimal Assistance Dressing-Upper Ext: Minimal Assistance Dressing-Lower Ext: Minimal Assistance - Sitting Balance Static Sitting: Independent with upper extremity support Dynamic Sitting: Contact Guard Assist - Transfers Wheelchair to Bed Transfers: Contact Guard Toilet Transfers: Contact Guard Tub Transfers: Contact Guard - Wheelchair Management Level of Assistance: Minimal Assistance Distance (ft.): 50 - Upper Extremity Status Right Upper Extremity Comment: flexion contractures in R hand, composite flexion 1/2 range. PROM WFLs. AROM approx 90 degrees Left Upper Extremity Comment: AROM WFLs - Pain Pain (assessed during therapy session): 0 - Insight/Carryover Insight/Carryover: Fair - Patient/Family Education Comment: CVA recovery, dme/ae education, goals of therapy, role of OT - Assessment/Plan Assessment: Pt is a 77 year old male with dx: new onset seizure. *Precautions: falls, seizure, aspiration precautions, impaired sensation/proprioception RUE, old CVA with R sided weakness. Pt limited by the following impairments: impaired RUE motor control/strength/P/AROM, impaired sensation RUE 2' old CVA, impaired standing/sitting balance tolerance, impaired safety awareness, impaired sensation/proprioception in RUE, impaired activity tolerance/endurance, impaired cognition and impaired knowledge of adaptive/compensatory strategies which impact on self care, functional transfers/mobility. patient doing well in therapy thus far, pt can complete ub adls with min A, lb adls with min A , transfers/mobility with min A. Pt will continue skilled OT to address functional impairments to maximize function in self care, transfers/mobility and Iadls for safe transition home with services. *Goal: Intermittent S for adls transfers/mobilty withassistive devices - Goals Timeframe: 2 weeks - Provider Occupational Therapist:: Fatmata Avila License Number: [id number] Speech Therapy - Consult Information Patient on Program: Yes Medical Diagnosis: seizures Treatment Diagnosis: mild receptive/mild-moderate expressive aphasia - Assessment Expressive Language Impairment: Moderate Receptive Language Impairment: Mild - Plan Assessment: Samuel Noriega presents with mild receptive and mild-moderate expressive aphasia characterized by difficulty answering more complex yes/no and open-ended questions and following 3+ step commands, impaired word retrieval, difficulty forming cohesive sentences for picture description, impaired oral reading of phrases/sentences, and impaired writing at the single word level. Pt with good participation in tx tasks and would benefit from continued skilled speech tx for improved receptive/expressive language skills and communicative effectiveness. Plan: Continue Speech/Language Therapy Frequency: 3-5 times per week Duration: 1 week Goals/Timeframe: Please see progress note dated 03/02/18 for updated goals/POC Recommendations: Continue ST 3-5x/week - Provider Therapist: Sabrina Ferro License Number: [id number] Recreational Therapy - Participation Participation: Participates in Individual and/or Group Sessions - Attendance Attendance: 3-5 times per week - Activities Leisure Activities: Cards and Games - Socialization Level of Socialization: Initiates/interacts freely with care givers and peer - Assessment Assessment/Plan: Pt is agreeable to participate in 1:1 and group recreation therapy sessions throughout his stay on unit. Pt has participated in card tasks including go-fish, modified kristin card task, and spot-it matching task. Pt also participated in bingo task with peers. Throughout all leisure tasks, pt requires supervision for command following and carrying over task rules. Pt's mood is stable-positive and will continue to benefit from participating in recreation therapy sessions throughout stay on unit. Problems Currently Limiting Participation: decrease leisure awareness level, decrease activity tolerance level, impaired direction following Goals and Time Frame: Pt will be encouraged to participate in 1:1 and group recreation therapy sessions 3-5x week to improve on leisure awareness level, command following, activity tolerance level, and overall mood state by date of discharge. - Provider Therapist: Latonia Haskins Nutrition - Current Diet Current Diet/Supplement/Feedings: Heart healthy diet ensure plus 8 ounces 1 per day - Appetite Percent Meal Consumed: 50-74% - Assessment/Goals/Time Frame Assessments/Goals/Time Frame: Pt at moderate nutritional risk. goals: 1. Pt to consume 75-100% of meals(partially met, continue. 2. Deter wt loss(met, continue). Follow-up due on 03/10/2018 - Provider Provider: Larissa Martinez Case Management - Psychosocial Assessment Support Systems: Samuel Alejandre" [facility] [phone] Psychological Interventions/Needs: Patient is alert with entry level receptionist/exp aphasia Discharge Concerns: Patient will likely require intermittent-24 supervision at home pending progress, patient also with approx. 15 steps to negotiate at home Patient/Family Meeting: CM met with patient and rehab team Intervention/Goal/Outcome: 1. Goal: 24 hour supervision? 2. Plan: Home with VNS and family support. 3. DME needs. 4. f/u appts. 5. caregiver training/education. 6. continued emotional support. 7. continued stay auth, LAD: 02/27- several messages left for RN CM, however, case still under review. 8. Tentative discharge date: 03/10/2018 - Discharge Plan Discharge Plan: Home with services - Provider Provider: Ang Brasher License Number: [id number] Rehabilitation Plan - Treatment Plan Treatment Plan: Physical Therapy, Occupational Therapy, Speech, Dietary, Patient/Family Education - Recommendation Recommendation: Physical Therapy, Occupational Therapy, Speech, Dietary, Patient/Family Education - Discharge Plan Estimated Date of Discharge: 03/10/18 Discharge to: Home
--- NOTE | 2018-03-03 15:16 | CP.PCM.PN ---
Subjective - Date & Time of Evaluation Date of Evaluation: 03/03/18 Time of Evaluation: 15:15 - Subjective Subjective: Patient seen in the room doing ok no SOB/CP or fever feels getting close to his baseline very happy with the progress in therapies continue current care Objective - Vital Signs/Intake and Output Vital Signs (last 24 hours): Temp Pulse Resp BP Pulse Ox 98 F 70 20 129/70 97 03/03/18 10:00 03/03/18 10:00 03/03/18 10:00 03/03/18 10:00 03/03/18 10:00 - Medications Medications: Current Medications Amlodipine Besylate (Norvasc) 10 mg PO DAILY [facility] Last Admin: 03/03/18 08:06 Dose: 10 mg Aspirin (Aspirin Chewable) 81 mg PO DAILY [facility] Last Admin: 03/03/18 08:05 Dose: 81 mg Atorvastatin Calcium (Lipitor) 20 mg PO DIN [facility] Last Admin: 03/02/18 17:39 Dose: 20 mg Divalproex Sodium (Depakote Dr(*Bid*)) 500 mg PO BID [facility] Last Admin: 03/03/18 08:04 Dose: 500 mg Tamsulosin HCl (Flomax) 0.4 mg PO HS [facility] Last Admin: 03/02/18 21:08 Dose: 0.4 mg - Labs Labs: 02/26/18 05:20 02/26/18 05:20
[2018-03-04] MEDS: Divalproex 500 mg DR(BID formulation) PO SCH ×2 (08:20→16:33)
--- NOTE | 2018-03-04 11:32 | CP.PCM.PN ---
Subjective - Date & Time of Evaluation Date of Evaluation: 03/04/18 Time of Evaluation: 10:20 - Subjective Subjective: Patient seen and examined. Complained of no BM for 5 days. Objective - Vital Signs/Intake and Output Vital Signs (last 24 hours): Temp Pulse Resp BP Pulse Ox 97.3 F L 90 19 118/66 97 03/04/18 08:09 03/04/18 08:19 03/04/18 08:09 03/04/18 08:19 03/04/18 08:09 - Medications Medications: Current Medications Amlodipine Besylate (Norvasc) 10 mg PO DAILY [facility] Last Admin: 03/04/18 08:19 Dose: 10 mg Aspirin (Aspirin Chewable) 81 mg PO DAILY [facility] Last Admin: 03/04/18 08:20 Dose: 81 mg Atorvastatin Calcium (Lipitor) 20 mg PO DIN [facility] Last Admin: 03/03/18 17:07 Dose: 20 mg Divalproex Sodium (Depakote Dr(*Bid*)) 500 mg PO BID [facility] Last Admin: 03/04/18 08:20 Dose: 500 mg Tamsulosin HCl (Flomax) 0.4 mg PO HS [facility] Last Admin: 03/03/18 21:18 Dose: 0.4 mg - Labs Labs: 02/26/18 05:20 02/26/18 05:20 - Constitutional Appears: Non-toxic - Head Exam Head Exam: ATRAUMATIC - Eye Exam Eye Exam: absent: Scleral icterus - ENT Exam ENT Exam: Mucous Membranes Moist - Neck Exam Neck Exam: absent: Meningismus - Respiratory Exam Respiratory Exam: absent: Rales, Rhonchi, Wheezes, Respiratory Distress - Cardiovascular Exam Cardiovascular Exam: REGULAR RHYTHM, +S1, +S2 - GI/Abdominal Exam GI & Abdominal Exam: Soft. absent: Tenderness - Rectal Exam Rectal Exam: Deferred - Neurological Exam Neurological Exam: Alert, Oriented x3 - Psychiatric Exam Psychiatric exam: Normal Affect - Skin Skin Exam: Dry, Intact Assessment and Plan - Assessment and Plan (Free Text) Assessment: 77 yo male with history of previous CVA with residual left sided weakness, HTN and BPH was recently admitted to [facility] [place] because of new onset seizure. He was admitted to ICU and was prophylactically intubated. His condition improved and was transferred to acute rehab for therapy. 1. Seizure disorder no seizure activity continue Keppra 500 mg PO BID continue PT/OT 2. HTN (hypertension) BP stable continue Amlodipine 3. Gait abnormality doing well with PT 4. BPH (benign prostatic hyperplasia) continue Flomax
--- NOTE | 2018-03-04 19:20 | CP.PCM.PN ---
Subjective - Date & Time of Evaluation Date of Evaluation: 03/04/18 Time of Evaluation: 19:19 - Subjective Subjective: Patient seen in the room resting in bed happy with progress in therapies he said he did the practice stairs and felt ok no sob/cp or fever continue current care Objective - Vital Signs/Intake and Output Vital Signs (last 24 hours): Temp Pulse Resp BP Pulse Ox 97.3 F L 84 19 100/52 L 97 03/04/18 08:09 03/04/18 11:50 03/04/18 08:09 03/04/18 11:50 03/04/18 08:09 - Medications Medications: Current Medications Amlodipine Besylate (Norvasc) 10 mg PO DAILY [facility] Last Admin: 03/04/18 08:19 Dose: 10 mg Aspirin (Aspirin Chewable) 81 mg PO DAILY [facility] Last Admin: 03/04/18 08:20 Dose: 81 mg Atorvastatin Calcium (Lipitor) 20 mg PO DIN [facility] Last Admin: 03/04/18 16:33 Dose: 20 mg Divalproex Sodium (Depakoambika Dr(*Bid*)) 500 mg PO BID [facility] Last Admin: 03/04/18 16:33 Dose: 500 mg Tamsulosin HCl (Flomax) 0.4 mg PO HS [facility] Last Admin: 03/03/18 21:18 Dose: 0.4 mg - Labs Labs: 02/26/18 05:20 02/26/18 05:20
[2018-03-05] MEDS: Divalproex 500 mg DR(BID formulation) PO SCH ×2 (08:40→16:10)
[2018-03-06] MEDS: Divalproex 500 mg DR(BID formulation) PO SCH ×2 (08:20→17:17)
--- NOTE | 2018-03-06 13:37 | CP.PCM.PN ---
Subjective - Date & Time of Evaluation Date of Evaluation: 03/06/18 Time of Evaluation: 10:20 - Subjective Subjective: Patient seen and examined. Denied any complaint Objective - Vital Signs/Intake and Output Vital Signs (last 24 hours): Temp Pulse Resp BP Pulse Ox 97.0 F L 94 H 18 118/70 95 03/06/18 08:18 03/06/18 08:21 03/06/18 08:18 03/06/18 08:21 03/06/18 08:18 - Medications Medications: Current Medications Amlodipine Besylate (Norvasc) 10 mg PO DAILY [facility] Last Admin: 03/06/18 08:21 Dose: 10 mg Aspirin (Aspirin Chewable) 81 mg PO DAILY [facility] Last Admin: 03/06/18 08:20 Dose: 81 mg Atorvastatin Calcium (Lipitor) 20 mg PO DIN [facility] Last Admin: 03/05/18 16:10 Dose: 20 mg Divalproex Sodium (Depakote Dr(*Bid*)) 500 mg PO BID [facility] Last Admin: 03/06/18 08:20 Dose: 500 mg Tamsulosin HCl (Flomax) 0.4 mg PO HS [facility] Last Admin: 03/05/18 21:14 Dose: 0.4 mg - Labs Labs: 02/26/18 05:20 02/26/18 05:20 - Constitutional Appears: No Acute Distress - Head Exam Head Exam: ATRAUMATIC - Eye Exam Eye Exam: absent: Scleral icterus - ENT Exam ENT Exam: Mucous Membranes Moist - Neck Exam Neck Exam: absent: Meningismus - Respiratory Exam Respiratory Exam: absent: Rales, Rhonchi, Wheezes, Respiratory Distress - Cardiovascular Exam Cardiovascular Exam: REGULAR RHYTHM, +S1, +S2 - GI/Abdominal Exam GI & Abdominal Exam: Soft. absent: Tenderness - Rectal Exam Rectal Exam: Deferred - Extremities Exam Extremities Exam: absent: Pedal Edema - Neurological Exam Neurological Exam: Alert, Oriented x3 - Psychiatric Exam Psychiatric exam: Normal Affect - Skin Skin Exam: Dry, Intact Assessment and Plan - Assessment and Plan (Free Text) Assessment: 77 yo male with history of previous CVA with residual left sided weakness, HTN and BPH was [place] [facility] [place] He was admitted to ICU and was prophylactically intubated. His condition improved and was transferred to acute rehab for therapy. 1. Seizure disorder no seizure activity continue Keppra 500 mg PO BID continue PT/OT 2. HTN (hypertension) BP controlled continue Amlodipine 3. Gait abnormality doing well with PT 4. BPH (benign prostatic hyperplasia) on Flomax
--- NOTE | 2018-03-06 14:14 | CP.PCM.PN ---
Subjective - Date & Time of Evaluation Date of Evaluation: 03/06/18 Time of Evaluation: 14:14 - Subjective Subjective: Patient seen in OT in good spirits close to baseline has really made good strides here excellent rehab patient continue current care Objective - Vital Signs/Intake and Output Vital Signs (last 24 hours): Temp Pulse Resp BP Pulse Ox 97.0 F L 94 H 18 118/70 95 03/06/18 08:18 03/06/18 08:21 03/06/18 08:18 03/06/18 08:21 03/06/18 08:18 Intake and Output: 03/06/18 03/06/18 06:59 18:59 Intake Total 300 Output Total 500 Balance -200 - Medications Medications: Current Medications Amlodipine Besylate (Norvasc) 10 mg PO DAILY [facility] Last Admin: 03/06/18 08:21 Dose: 10 mg Aspirin (Aspirin Chewable) 81 mg PO DAILY [facility] Last Admin: 03/06/18 08:20 Dose: 81 mg Atorvastatin Calcium (Lipitor) 20 mg PO DIN [facility] Last Admin: 03/05/18 16:10 Dose: 20 mg Divalproex Sodium (Depako[place] Dr(*Bid*)) 500 mg PO BID [facility] Last Admin: 03/06/18 08:20 Dose: 500 mg Tamsulosin HCl (Flomax) 0.4 mg PO HS [facility] Last Admin: 03/05/18 21:14 Dose: 0.4 mg - Labs Labs: 02/26/18 05:20 02/26/18 05:20
[2018-03-07] MEDS: Divalproex 500 mg DR(BID formulation) PO SCH ×2 (08:41→16:49)
[2018-03-08] MEDS: Divalproex 500 mg DR(BID formulation) PO SCH ×2 (08:28→16:13)
--- NOTE | 2018-03-08 11:05 | CP.PCM.PN ---
Subjective - Date & Time of Evaluation Date of Evaluation: 03/07/18 Time of Evaluation: 09:15 - Subjective Subjective: no acute complaints at present Objective - Vital Signs/Intake and Output Vital Signs (last 24 hours): Temp Pulse Resp BP Pulse Ox 98.1 F 82 20 139/79 96 03/08/18 08:11 03/08/18 08:11 03/08/18 08:11 03/08/18 08:28 03/08/18 08:11 - Medications Medications: Current Medications Amlodipine Besylate (Norvasc) 10 mg PO DAILY [facility] Last Admin: 03/08/18 08:28 Dose: 10 mg Aspirin (Aspirin Chewable) 81 mg PO DAILY [facility] Last Admin: 03/08/18 08:28 Dose: 81 mg Atorvastatin Calcium (Lipitor) 20 mg PO DIN [facility] Last Admin: 03/07/18 16:49 Dose: 20 mg Divalproex Sodium (Depakote Dr(*Bid*)) 500 mg PO BID [facility] Last Admin: 03/08/18 08:28 Dose: 500 mg Tamsulosin HCl (Flomax) 0.4 mg PO HS [facility] Last Admin: 03/07/18 21:05 Dose: 0.4 mg - Labs Labs: 02/26/18 05:20 02/26/18 05:20 - Constitutional Appears: Well - Head Exam Head Exam: ATRAUMATIC, NORMAL INSPECTION, NORMOCEPHALIC - Eye Exam Eye Exam: EOMI, Normal appearance Pupil Exam: NORMAL ACCOMODATION, PERRL - ENT Exam ENT Exam: Mucous Membranes Moist - Neck Exam Neck Exam: Normal Inspection - Respiratory Exam Respiratory Exam: NORMAL BREATHING PATTERN - Cardiovascular Exam Cardiovascular Exam: REGULAR RHYTHM - GI/Abdominal Exam GI & Abdominal Exam: Soft, Normal Bowel Sounds - Rectal Exam Rectal Exam: NORMAL INSPECTION - Exam External exam: NORMAL EXTERNAL EXAM - Extremities Exam Extremities Exam: Normal Capillary Refill - Back Exam Back Exam: NORMAL INSPECTION - Neurological Exam Neurological Exam: Alert, Awake - Psychiatric Exam Psychiatric exam: Normal Affect - Skin Skin Exam: Dry, Normal Color Assessment and Plan (1) HTN (hypertension) Status: Acute (2) Seizure disorder Status: Acute (3) BPH (benign prostatic hyperplasia) Status: Acute (4) CVA (cerebral vascular accident) Assessment & Plan: plan for physical, occupational therapy program for range of motion, strengthening ,transfers and gait training. Monitor vital a, pain. Covering fro Dr parson Status: Acute (5) Gait abnormality Status: Acute (6) New onset seizure Status: Acute
[2018-03-09] MEDS: Divalproex 500 mg DR(BID formulation) PO SCH ×2 (08:30→17:06)
--- NOTE | 2018-03-09 11:51 | CP.PCM.PN ---
Subjective - Date & Time of Evaluation Date of Evaluation: 03/09/18 Time of Evaluation: 10:30 - Subjective Subjective: Patient seen and examined. Denied any complaint. Objective - Vital Signs/Intake and Output Vital Signs (last 24 hours): Temp Pulse Resp BP Pulse Ox 97.3 F L 84 18 118/69 98 03/09/18 08:35 03/09/18 08:35 03/09/18 08:35 03/09/18 08:35 03/09/18 08:35 - Medications Medications: Current Medications Amlodipine Besylate (Norvasc) 10 mg PO DAILY [facility] Last Admin: 03/09/18 08:30 Dose: 10 mg Aspirin (Aspirin Chewable) 81 mg PO DAILY [facility] Last Admin: 03/09/18 08:30 Dose: 81 mg Atorvastatin Calcium (Lipitor) 20 mg PO DIN [facility] Last Admin: 03/08/18 16:13 Dose: 20 mg Divalproex Sodium (Depakote Dr(*Bid*)) 500 mg PO BID [facility] Last Admin: 03/09/18 08:30 Dose: 500 mg Tamsulosin HCl (Flomax) 0.4 mg PO HS [facility] Last Admin: 03/08/18 21:18 Dose: 0.4 mg - Labs Labs: 02/26/18 05:20 02/26/18 05:20 - Constitutional Appears: No Acute Distress - Head Exam Head Exam: ATRAUMATIC - Eye Exam Eye Exam: absent: Scleral icterus - ENT Exam ENT Exam: Mucous Membranes Moist - Neck Exam Neck Exam: absent: Meningismus - Respiratory Exam Respiratory Exam: absent: Rales, Rhonchi, Wheezes, Respiratory Distress - Cardiovascular Exam Cardiovascular Exam: REGULAR RHYTHM, +S1, +S2 - GI/Abdominal Exam GI & Abdominal Exam: Soft. absent: Tenderness - Rectal Exam Rectal Exam: Deferred - Neurological Exam Neurological Exam: Alert, Oriented x3 - Psychiatric Exam Psychiatric exam: Normal Affect - Skin Skin Exam: Dry, Intact Assessment and Plan - Assessment and Plan (Free Text) Assessment: 77 yo male with history of previous CVA with residual left sided weakness, HTN and BPH was recently admitted to [facility] because of new onset seizure. He was admitted to ICU and was prophylactically intubated. His condition improved and was transferred to acute rehab for therapy. 1. Seizure disorder no seizure activity continue Keppra 500 mg PO BID continue PT/OT 2. HTN (hypertension) BP controlled continue Amlodipine 3. 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 BPH (benign prostatic hyperplasia) on Flomax
--- NOTE | 2018-03-09 18:18 | CP.PCM.PN ---
Subjective - Date & Time of Evaluation Date of Evaluation: 03/09/18 Time of Evaluation: 18:17 - Subjective Subjective: Patient seen in the room doing ok aware of upcoming d/c date 03/12/18 ambulating 100' with NBQC has done quite well and close to baseline Objective - Vital Signs/Intake and Output Vital Signs (last 24 hours): Temp Pulse Resp BP Pulse Ox 97.3 F L 84 18 118/69 98 03/09/18 08:35 03/09/18 08:35 03/09/18 08:35 03/09/18 08:35 03/09/18 08:35 - Medications Medications: Current Medications Amlodipine Besylate (Norvasc) 10 mg PO DAILY [facility] Last Admin: 03/09/18 08:30 Dose: 10 mg Aspirin (Aspirin Chewable) 81 mg PO DAILY [facility] Last Admin: 03/09/18 08:30 Dose: 81 mg Atorvastatin Calcium (Lipitor) 20 mg PO DIN [facility] Last Admin: 03/09/18 16:53 Dose: 20 mg Divalproex Sodium (Depakote Dr(*Bid*)) 500 mg PO BID [facility] Last Admin: 03/09/18 17:06 Dose: 500 mg Tamsulosin HCl (Flomax) 0.4 mg PO HS [facility] Last Admin: 03/08/18 21:18 Dose: 0.4 mg - Labs Labs: 02/26/18 05:20 02/26/18 05:20
[2018-03-10] MEDS: Divalproex 500 mg DR(BID formulation) PO SCH ×2 (08:07→17:24)
--- NOTE | 2018-03-10 13:16 | PCM.PSYTMC ---
Acute Rehab Team Conference - - Vital Signs: Vital Signs (Last 8 Hours): Vital Signs 03/10/18 03/10/18 03/10/18 07:27 08:07 08:11 Temperature 97.6 F 97.6 F Pulse Rate 77 78 71 Respiratory 20 19 Rate Blood Pressure 122/60 126/70 124/62 O2 Sat by Pulse 100 Oximetry Pain: 0 - Precautions: Precautions: Fall Prevention - Toileting: Toileting: Contact Guard - Bladder Management: Bladder Pattern: Normal Voiding Method: Toilet - Transfers: Transfers: Contact Guard - Patient/Family Teaching: Other Intervention:: re: fall precaution. - Goals/Time Frame: Comment: patient will be able to demonstrate/ verbalize fall precaution. - Provider: Registered Nurse:: Jaydon Gardner Physical Therapy - Bed Mobility Bed Mobility: Supervision Comment: Patient performs supine to sit on EOB with head of bed flat without use of bedrail with supervision. - Transfers Wheelchair to Mat: Contact Guard Sit to Stand: Contact Guard Comment: Sit to stand with NBQC with minimal assistance of 1, stand pivot bed to w/c with minimal assistance of 1 and VC's for safe technique. - Ambulation Level of Assistance: Minimal Assistance Distance (ft.): 150 Assistive Devices: Narrow base quad cane Orthoses: Patient ambulates with NBQC x 100 feet x 1 time with minimal assistance of 1 with a slow gait, small step length, decreased step height and step length right LE, occassional foot drag, w/c follow. - Stair Negotiation Stairs: Level of Assistance: Minimal Assistance, Moderate Assistance Number of Stairs: 2 Stairs: Assistive Devices: Left Handrail Comment: Patient ascended and descended 2 steps with left HR with minimal/moderate assistance of 1 and VC's for technique with step to pattern. - Standing Balance Static Stand: Contact Guard Assist - Pain Pain (assessed during therapy session): 0 Comment: Patient with complaints of pain. - Insight/Carryover Insight/Carryover: Fair - Patient/Family Education Comment: Safe transfers, bed mobility, increasing right LE step length and height during ambulation to decrease foot drag. - Assessment/Plan Assessment: Patient making slow, steady progress during therapy, motivated for therapy, residual deficits from previous CVA. - Goals Timeframe: 1 week Goals: 1. Increase bed mobility to distant supervision. 2. Increase transfers to CG of 1. 3. Increase ambulation with AD x 125 feet with CG of 1. - Provider Physical Therapist:: Clarissa Perez License Number:: [id number] Occupational Therapy - Arousal/Attention/Orientation Level of Consciousness: Awake, Alert, Forgetful Patient Orientation: Person, Place, Time, Appropriate to Age, Appropriate to Situation - ADL/IADL Self Feeding: Independent, Set-up Help Grooming: Supervision, Verbal Cues, Set-up Help Bathing-Upper Ext: Verbal Cues, Set-up Help, Minimal Assistance Bathing-Lower Ext: Verbal Cues, Set-up Help, Minimal Assistance Dressing-Upper Ext: Supervision, Verbal Cues, Set-up Help, Minimal Assistance Dressing-Lower Ext: Verbal Cues, Set-up Help, Contact Guard, Minimal Assistance Comment: needs verbal cues for moreno-techniques, safety for dressing upper/lower body - Sitting Balance Static Sitting: Independent without upper extremity support Dynamic Sitting: Reaches across midline, Reaches out of base of support, Reaches within base of support, Requires supervision, Contact Guard Assist Comment: seated at edge of bed - Transfers Wheelchair to Bed Transfers: Verbal Cues, Set-up Help, Contact Guard, Minimal Assistance Toilet Transfers: Verbal Cues, Set-up Help, Contact Guard, Minimal Assistance Comment: shower transfers: min assist and verbal cues - Wheelchair Management Level of Assistance: Supervision, Verbal Cues, Set-up Help Distance (ft.): 150 - Upper Extremity Status Right Upper Extremity Comment: flexion contractures in R MPS?IPS hand, composite flexion 1/2 range. PROM WFLs. AROM approx 90 degrees in R shoulder flex/abd Left Upper Extremity Comment: AROM is WFLS. strength 4/5 t/o - Pain Pain (assessed during therapy session): 0 - Insight/Carryover Insight/Carryover: Fair - Patient/Family Education Comment: -ongoing education on safety/adaptive strategies for adls, transfers/mobility and Iadls. -moreno-techniques for dressing. -w/c management/safety, brake management for safety/transfers. -self ROM/RUE management/positioning. -lower body dressing devices: activities volunteer, dressing stick prn - Assessment/Plan Assessment: Patient is a 77 year old male with dx: new onset seizure. *Precautions: falls, seizure, aspiration precautions, impaired s ensation/proprioception RUE, old CVA with R sided weakness. Pt limited by the following impairments: -impaired RUE motor control/strength/P/AROM. -impaired sensation RUE 2' old CVA. -impaired standing/sitting balance tolerance. - impaired safety awareness. -impaired sensation/proprioception in RUE. - impaired activity tolerance/endurance. -impaired cognition--memory. -impaired knowledge of adaptive/compensatory strategies--which impact on self care, functional transfers/mobility. Pt will continue to benefit from skilled Occupational Therapy to address functional impairments to maximize function in self care, transfers/mobility and Iadls for safe transition home with services. .Pt currently at CG/Min assist and verbal cues overall for self care, transfers/mobility,. *Caregiver education highly recommended for safe transition home with services. Pt has recommended bathroom DMEs: 3 in one commode, transfer tub bech with back. [ End ] - Goals Timeframe: 1 week Comment: -GROOMING: I/setup. -UPPER BODY DRESSING: I/setup. -LOWER BODY DRESSING: Supervision/setup. -TOILETING: Supervision & verbal cues. -W/C JOSE CARLOS GEMENT/PROPULSION: Mod I 150 feet+, brake management. -BATHING: CS and verbal cues seated, standing intermittely iwth steadying assist from grab bar. -RUE: Increase RUE to 3/5 throughout so can use as gross stabilizer duirng dressing/bathing and grooming tasks - Provider Occupational Therapist:: Tiffani Eubanks License Number: [id number] Speech Therapy - Consult Information Patient on Program: Yes Medical Diagnosis: seizure Treatment Diagnosis: mild receptive/mild-moderate expressive aphasia - Assessment Expressive Language Impairment: Mild Comment: mild-moderate Receptive Language Impairment: Mild - Plan Assessment: Samuel Noriega presents with mild receptive and mild-moderate expressive aphasia characterized by difficulty answering more complex yes/no and open-ended questions and following complex directions, impaired word finding, impaired oral reading of phrases/sentences, and impaired writing at the single word level. Pt has presented with excellent participation in tx tasks and continues to demonstrate improvements in all areas of language. He would benefit from continued speech tx for improved receptive/expressive language skills and communicative effectiveness. Plan: Continue Speech/Language Therapy Frequency: 3-5 times per week Duration: 1 week Goals/Timeframe: Please see progress note dated 03/09/18 for updated goals/POC Recommendations: Continue ST 3-5x/week for improved communicative effectiveness - Provider Therapist: Sabrina Ferro License Number: [id number] Recreational Therapy - Participation Participation: Participates in Individual and/or Group Sessions - Attendance Attendance: 3-5 times per week - Activities Leisure Activities: Cards and Games - Socialization Level of Socialization: Initiates/interacts freely with care givers and peer - Assessment Assessment/Plan: Pt is agreeable to participate in 1:1 and group recreation therapy sessions following encouragement. Pt has participated in word finding based related tasks such as guess who, name 5, taboo, etc. Pt continues to require min A-supervision with all leisure tasks 2' decrease carryover of task rules. Pt has demonstrated improved recalling facts on demand and word finding throughout tasks. Pt's mood is stable-positive and verbalizes enjoyment participating in sessions. Pt will continue to benefit from participating in recreation therapy sessions throughout stay on unit. Problems Currently Limiting Participation: decrease leisure awareness level, decrease activity tolerance level, impaired direction following, decrease carryover of task rules Goals and Time Frame: Pt will be encouraged to participate in 1:1 and group recreation therapy sessions 3-5x week to improve on leisure awareness level, command following, activity tolerance level, and overall mood state by date of discharge. - Provider Therapist: Latonia Haskins Nutrition - Current Diet Current Diet/Supplement/Feedings: Heart healthy diet ensure plus 8 ounces 1 per day - Appetite Percent Meal Consumed: 75-100% - Assessment/Goals/Time Frame Assessments/Goals/Time Frame: Pt at moderate nutritional risk. 1. Pt to consume 75-100% of meals( met, continue). 2. Deter wt loss met, continue). Follow-up due on 03/17/2018 - Provider Provider: Larissa Martinez Case Management - Psychosocial Assessment Support Systems: Samuel Noriega Jr. (son)- [phone] Psychological Interventions/Needs: Patient is AAOx3 with mild aphasia and some periods of forgetfulness. ` Discharge Concerns: Patient's son and daughter in law work and there are times where he is home alone. Patient has two flights of stairs to navigate- one to enter the building, and another one to get to the second floor. Patient/Family Meeting: CM met with patient and rehab team. Intervention/Goal/Outcome: 1. Goal: 24hr supervision 2. Plan: MAL as requested by family 3. [facility] 4. obtain out of network authorization for MAL level of care as patient's [employer]vantage plan is not in network with any facilities in the area 5. continued authorization for Acute Rehab stay 6. continued emotional support - Discharge Plan Discharge Plan: Subacute care - Provider Provider: Kelly Ingram License Number: [id number] Rehabilitation Plan - Treatment Plan Treatment Plan: Physical Therapy, Occupational Therapy, Speech, Dietary, Patient/Family Education - Discharge Plan Discharge to: Subacute
--- NOTE | 2018-03-10 13:39 | CP.PCM.PN ---
Subjective - Date & Time of Evaluation Date of Evaluation: 03/10/18 Time of Evaluation: 13:38 - Subjective Subjective: Patient seen in the room no sob/cp or fever feels good and wants to go home unfortunately the family does not yet feel comfortable with this d/c they want MAL. A referral will be put in for this option. continue current care Objective - Vital Signs/Intake and Output Vital Signs (last 24 hours): Temp Pulse Resp BP Pulse Ox 97.6 F 71 19 124/62 100 03/10/18 08:11 03/10/18 08:11 03/10/18 08:11 03/10/18 08:11 03/10/18 08:11 - Medications Medications: Current Medications Amlodipine Besylate (Norvasc) 10 mg PO DAILY [facility] Last Admin: 03/10/18 08:07 Dose: 10 mg Aspirin (Aspirin Chewable) 81 mg PO DAILY [facility] Last Admin: 03/10/18 08:07 Dose: 81 mg Atorvastatin Calcium (Lipitor) 20 mg PO DIN [facility] Last Admin: 03/09/18 16:53 Dose: 20 mg Divalproex Sodium (Depakote Dr(*Bid*)) 500 mg PO BID [facility] Last Admin: 03/10/18 08:07 Dose: 500 mg Tamsulosin HCl (Flomax) 0.4 mg PO HS [facility] Last Admin: 03/09/18 21:07 Dose: 0.4 mg - Labs Labs: 02/26/18 05:20 02/26/18 05:20
[2018-03-11] MEDS: Divalproex 500 mg DR(BID formulation) PO SCH ×2 (08:05→16:06)
--- NOTE | 2018-03-11 17:07 | CP.PCM.PN ---
Subjective - Date & Time of Evaluation Date of Evaluation: 03/11/18 Time of Evaluation: 17:06 - Subjective Subjective: Patient seen in the room discussed with rehabilitation case coordinator and he will be extended until 03/17/18 by insurance with the plan of going home. he was not able to get into [facility]. family will be responsible for any time after this date if they are not agreeing for him to go home. Objective - Vital Signs/Intake and Output Vital Signs (last 24 hours): Temp Pulse Resp BP Pulse Ox 97.3 F L 93 H 19 109/78 95 03/11/18 08:05 03/11/18 09:01 03/11/18 08:05 03/11/18 08:06 03/11/18 09:01 - Medications Medications: Current Medications Amlodipine Besylate (Norvasc) 10 mg PO DAILY [facility] Last Admin: 03/11/18 08:06 Dose: Not Given Aspirin (Aspirin Chewable) 81 mg PO DAILY [facility] Last Admin: 03/11/18 08:05 Dose: 81 mg Atorvastatin Calcium (Lipitor) 20 mg PO DIN [facility] Last Admin: 03/11/18 16:06 Dose: 20 mg Divalproex Sodium (Depakote Dr(*Bid*)) 500 mg PO BID [facility] Last Admin: 03/11/18 16:06 Dose: 500 mg Tamsulosin HCl (Flomax) 0.4 mg PO HS [facility] Last Admin: 03/10/18 21:04 Dose: 0.4 mg - Labs Labs: 02/26/18 05:20 02/26/18 05:20
--- NOTE | 2018-03-11 17:37 | CP.PCM.PN ---
Subjective - Date & Time of Evaluation Date of Evaluation: 03/11/18 Time of Evaluation: 10:20 - Subjective Subjective: Patient seen and examined. Denied any complaint. Objective - Vital Signs/Intake and Output Vital Signs (last 24 hours): Temp Pulse Resp BP Pulse Ox 97.3 F L 93 H 19 109/78 95 03/11/18 08:05 03/11/18 09:01 03/11/18 08:05 03/11/18 08:06 03/11/18 09:01 - Medications Medications: Current Medications Amlodipine Besylate (Norvasc) 10 mg PO DAILY [facility] Last Admin: 03/11/18 08:06 Dose: Not Given Aspirin (Aspirin Chewable) 81 mg PO DAILY [facility] Last Admin: 03/11/18 08:05 Dose: 81 mg Atorvastatin Calcium (Lipitor) 20 mg PO DIN [facility] Last Admin: 03/11/18 16:06 Dose: 20 mg Divalproex Sodium (Depakote Dr(*Bid*)) 500 mg PO BID [facility] Last Admin: 03/11/18 16:06 Dose: 500 mg Tamsulosin HCl (Flomax) 0.4 mg PO HS [facility] Last Admin: 03/10/18 21:04 Dose: 0.4 mg - Labs Labs: 02/26/18 05:20 02/26/18 05:20 - Constitutional Appears: No Acute Distress - Head Exam Head Exam: ATRAUMATIC - Eye Exam Eye Exam: absent: Scleral icterus - ENT Exam ENT Exam: Mucous Membranes Moist - Neck Exam Neck Exam: absent: Meningismus - Respiratory Exam Respiratory Exam: absent: Rales, Rhonchi, Wheezes, Respiratory Distress - Cardiovascular Exam Cardiovascular Exam: REGULAR RHYTHM, +S1, +S2 - GI/Abdominal Exam GI & Abdominal Exam: Soft. absent: Tenderness - Rectal Exam Rectal Exam: Deferred - Neurological Exam Neurological Exam: Alert, Oriented x3 - Psychiatric Exam Psychiatric exam: Normal Affect - Skin Skin Exam: Dry, Intact Assessment and Plan - Assessment and Plan (Free Text) Assessment: 77 yo male with history of previous CVA with residual left sided weakness, HTN and BPH was recently admitted to [facility] because of new onset seizure. He was admitted to ICU and was prophylactically intubated. His condition improved and was transferred to acute rehab for therapy. 1. Seizure disorder continue Keppra 500 mg PO BID continue PT/OT 2. HTN (hypertension) BP controlled continue Amlodipine 3. 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 BPH (benign prostatic hyperplasia) on Flomax
[2018-03-12] MEDS: Divalproex 500 mg DR(BID formulation) PO SCH ×2 (08:27→16:17)
[2018-03-13] MEDS: Divalproex 500 mg DR(BID formulation) PO SCH ×2 (08:34→17:06)
--- NOTE | 2018-03-13 11:06 | CP.PCM.PN ---
Subjective - Date & Time of Evaluation Date of Evaluation: 03/13/18 Time of Evaluation: 11:00 - Subjective Subjective: Patient seen and examined. Appeared comfortable and denied any complaint. Objective - Vital Signs/Intake and Output Vital Signs (last 24 hours): Temp Pulse Resp BP Pulse Ox 97.0 F L 85 20 116/78 96 03/13/18 07:36 03/13/18 08:33 03/13/18 07:36 03/13/18 08:33 03/13/18 07:36 - Medications Medications: Current Medications Amlodipine Besylate (Norvasc) 10 mg PO DAILY [facility] Last Admin: 03/13/18 08:33 Dose: 10 mg Aspirin (Aspirin Chewable) 81 mg PO DAILY [facility] Last Admin: 03/13/18 08:34 Dose: 81 mg Atorvastatin Calcium (Lipitor) 20 mg PO DIN [facility] Last Admin: 03/12/18 16:17 Dose: 20 mg Divalproex Sodium (Depakote Dr(*Bid*)) 500 mg PO BID [facility] Last Admin: 03/13/18 08:34 Dose: 500 mg Tamsulosin HCl (Flomax) 0.4 mg PO HS [facility] Last Admin: 03/12/18 21:09 Dose: 0.4 mg - Labs Labs: 02/26/18 05:20 02/26/18 05:20 - Constitutional Appears: No Acute Distress - Head Exam Head Exam: ATRAUMATIC - Eye Exam Eye Exam: absent: Scleral icterus - ENT Exam ENT Exam: Mucous Membranes Moist - Neck Exam Neck Exam: absent: Meningismus - Respiratory Exam Respiratory Exam: absent: Rales, Rhonchi, Wheezes, Respiratory Distress - Cardiovascular Exam Cardiovascular Exam: REGULAR RHYTHM, +S1, +S2 - GI/Abdominal Exam GI & Abdominal Exam: Soft. absent: Tenderness - Rectal Exam Rectal Exam: Deferred - Neurological Exam Neurological Exam: Alert, Oriented x3 - Psychiatric Exam Psychiatric exam: Normal Affect - Skin Skin Exam: Dry, Intact Assessment and Plan - Assessment and Plan (Free Text) Assessment: 77 yo male with history of previous CVA with residual left sided weakness, HTN and BPH was recently admitted to [facility] because of new onset seizure. He was admitted to ICU and was prophylactically intubated. His condition improved and was transferred to acute rehab for therapy. 1. Seizure disorder no seizure activity on Keppra 500 mg PO BID continue PT/OT 2. HTN (hypertension) BP stable continue Amlodipine 3. Old CVA with left sided weakness continue PT/OT 4. BPH (benign prostatic hyperplasia) on Flomax
--- NOTE | 2018-03-13 16:44 | CP.PCM.CON ---
History of Present Illness - History of Present Illness History of Present Illness: Podiatry Consult: Dr. Dunlap 77year old male patient, with PMH of CVA, HTN, BPH, seen and evaluated for b/l toe pain while walking. Patient states that over the past two days his toes have been hurting in his shoes when he participates in therapy. He states that it never happened before, but now it hurts so badly he can't put his shoes on. Patient denies any additional acute pedal complaints at this time. Denies N/V/F/SOB/CP. PMHx: as above SH: denies tobacco use ALL: NKDA Review of Systems - Constitutional Constitutional: As Per HPI Past Patient History - Infectious Disease Hx of Infectious Diseases: None - Past Medical History & Family History Past Medical History?: Yes - Past Social History Smoking Status: Former Smoker Drugs: Denies Home Situation {Lives}: With Family (stairs) - CARDIAC Hx Hypertension: Yes - PULMONARY Hx Respiratory Disorders: No - NEUROLOGICAL HX Cerebrovascular Accident: Yes - HEENT Hx HEENT Problems: No - RENAL Hx Chronic Kidney Disease: No - ENDOCRINE/METABOLIC Hx Endocrine Disorders: No - HEMATOLOGICAL/ONCOLOGICAL Hx Blood Disorders: Yes - INTEGUMENTARY Hx Dermatological Problems: No - MUSCULOSKELETAL/RHEUMATOLOGICAL Hx Arthritis: Yes - GASTROINTESTINAL Hx Gastrointestinal Disorders: Yes (CONSTIPATION) - GENITOURINARY/GYNECOLOGICAL Hx Genitourinary Disorders: Yes (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) - PSYCHIATRIC Hx Substance Use: No - SURGICAL HISTORY Hx Surgeries: Yes - ANESTHESIA Hx Anesthesia: Yes Hx Anesthesia Reactions: No Hx Malignant Hyperthermia: No Meds Allergies/Adverse Reactions: Allergies Allergy/AdvReac Type Severity Reaction Status Date / Time No Known Allergies Allergy Verified 02/25/18 23:48 - Medications Medications: Current Medications Amlodipine Besylate (Norvasc) 10 mg PO DAILY [facility] Last Admin: 03/13/18 08:33 Dose: 10 mg Aspirin (Aspirin Chewable) 81 mg PO DAILY [facility] Last Admin: 03/13/18 08:34 Dose: 81 mg Atorvastatin Calcium (Lipitor) 20 mg PO DIN [facility] Last Admin: 03/12/18 16:17 Dose: 20 mg Divalproex Sodium (Depakote Dr(*Bid*)) 500 mg PO BID [facility] Last Admin: 03/13/18 08:34 Dose: 500 mg Tamsulosin HCl (Flomax) 0.4 mg PO HS [facility] Last Admin: 03/12/18 21:09 Dose: 0.4 mg Physical Exam - Constitutional Appears: Non-toxic, No Acute Distress - Extremities Exam Additional comments: B/L LE focused exam: Vasc: DP/PT 2/4, CFT < 3 seconds, TG warm to warm, no pedal edema present Ortho: Pes planus deformity appreciated Neuro: Gross and protective sensation diminished Derm: No open lesions, no erythema, toenails appropriate length, no clinical signs of infection - Neurological Exam Neurological exam: Alert, Oriented x3 - Psychiatric Exam Psychiatric exam: Normal Affect, Normal Mood Results - Vital Signs Recent Vital Signs: Last Vital Signs Temp 97.0 F L 03/13/18 07:36 Pulse 85 03/13/18 08:33 Resp 20 03/13/18 07:36 BP 116/78 03/13/18 08:33 Pulse Ox 96 03/13/18 07:36 - Labs Result Diagrams: 02/26/18 05:20 02/26/18 05:20 Assessment & Plan - Assessment and Plan (Free Text) Assessment: 77year old male patient, with PMH of CVA, HTN, BPH, seen and evaluated for b/l toe pain while walking. Plan: Patient seen and evaluated Discussed patient in detail with Dr. Dunlap Patients nails did not need debridement at this time Patients shoes evaluated, discussed with patient that his shoes are too small for his feet and most likely the cause of the pain Advised patient to buy larger shoes with a larger toe box Podiatry to sign off at this time Please reconsult as needed - Date & Time Date: 03/13/18 Time: 16:49
--- NOTE | 2018-03-13 17:59 | CP.PCM.PN ---
Subjective - Date & Time of Evaluation Date of Evaluation: 03/13/18 Time of Evaluation: 17:53 - Subjective Subjective: Patient seen in the room doing ok looking forward to d/c home on 03/14/18 continues to improve Objective - Vital Signs/Intake and Output Vital Signs (last 24 hours): Temp Pulse Resp BP Pulse Ox 97.0 F L 94 H 20 116/78 96 03/13/18 07:36 03/13/18 08:57 03/13/18 07:36 03/13/18 08:33 03/13/18 07:36 - Medications Medications: Current Medications Amlodipine Besylate (Norvasc) 10 mg PO DAILY [facility] Last Admin: 03/13/18 08:33 Dose: 10 mg Aspirin (Aspirin Chewable) 81 mg PO DAILY [facility] Last Admin: 03/13/18 08:34 Dose: 81 mg Atorvastatin Calcium (Lipitor) 20 mg PO DIN [facility] Last Admin: 03/13/18 17:06 Dose: 20 mg Divalproex Sodium (Depakote Dr(*Bid*)) 500 mg PO BID [facility] Last Admin: 03/13/18 17:06 Dose: 500 mg Tamsulosin HCl (Flomax) 0.4 mg PO HS [facility] Last Admin: 03/12/18 21:09 Dose: 0.4 mg - Labs Labs: 02/26/18 05:20 02/26/18 05:20
[2018-03-14] MEDS: Divalproex 500 mg DR(BID formulation) PO SCH ×2 (08:16→17:42)
[2018-03-15] MEDS: Divalproex 500 mg DR(BID formulation) PO SCH ×2 (09:01→17:36)
[2018-03-16] MEDS: Divalproex 500 mg DR(BID formulation) PO SCH ×2 (08:40→17:37)
--- NOTE | 2018-03-16 13:01 | CP.PCM.PN ---
<Heather Draper - Last Filed: 03/16/18 12:57> Subjective - Date & Time of Evaluation Date of Evaluation: 03/16/18 Time of Evaluation: 12:57 - Subjective Subjective: 77 y/o male patient was seen and examined in the rehab. Patient was resting comfortably in chair at bedside. Patient states he is eating well, performign physical therapy and denies any acute overnight events. Patients denies any complaints of fever, nausea, vomiting, shortness of breath, chest pain. Patient states he is aware of discharge to home with [facility] Objective - Vital Signs/Intake and Output Vital Signs (last 24 hours): Temp Pulse Resp BP Pulse Ox 97.0 F L 83 20 132/78 94 L 03/16/18 07:54 03/16/18 08:41 03/16/18 07:54 03/16/18 08:41 03/16/18 07:54 - Medications Medications: Current Medications Amlodipine Besylate (Norvasc) 10 mg PO DAILY [facility] Last Admin: 03/16/18 08:41 Dose: 10 mg Aspirin (Aspirin Chewable) 81 mg PO DAILY [facility] Last Admin: 03/16/18 08:41 Dose: 81 mg Atorvastatin Calcium (Lipitor) 20 mg PO DIN [facility] Last Admin: 03/15/18 17:36 Dose: 20 mg Divalproex Sodium (Depakote Dr(*Bid*)) 500 mg PO BID [facility] Last Admin: 03/16/18 08:40 Dose: 500 mg Tamsulosin HCl (Flomax) 0.4 mg PO HS [facility] Last Admin: 03/15/18 22:06 Dose: 0.4 mg - Labs Labs: 02/26/18 05:20 02/26/18 05:20 - Constitutional Appears: Well, Non-toxic, No Acute Distress - Head Exam Head Exam: ATRAUMATIC, NORMOCEPHALIC - Eye Exam Eye Exam: Normal appearance - ENT Exam ENT Exam: Mucous Membranes Moist - Respiratory Exam Respiratory Exam: Clear to Ausculation Bilateral, NORMAL BREATHING PATTERN. absent: Rales, Rhonchi, Wheezes - Cardiovascular Exam Cardiovascular Exam: REGULAR RHYTHM, +S1, +S2 - GI/Abdominal Exam GI & Abdominal Exam: Soft, Normal Bowel Sounds. absent: Firm, Guarding, Rigid - Neurological Exam Neurological Exam: Alert, Awake, Oriented x3 - Psychiatric Exam Psychiatric exam: Normal Affect, Normal Mood - Skin Skin Exam: Normal Color Assessment and Plan - Assessment and Plan (Free Text) Assessment: 77 y/o male with history of previous CVA with residual left sided weakness, HTN and BPH was recently admitted to [facility] because of new onset seizure. He was admitted to ICU and was prophylactically intubated. His condition improved and was transferred to acute rehab for therapy. Plan: 1. Seizure disorder - no seizure activity noted - on Depakote 500 mg PO BID - continue PT/OT- patient to continue home PT via [facility] 2. HTN (hypertension) - BP stable - continue Amlodipine 10 mg PO DAILY, Lipitor 20 mg PO DIN 3. Old CVA with left sided weakness - continue PT/OT - continue ASA 81 mg PO 4. BPH (benign prostatic hyperplasia) - continue Flomax 0.4 mg PO HS <Monica Sykes - Last Filed: 03/16/18 17:55> Objective - Vital Signs/Intake and Output Vital Signs (last 24 hours): Temp Pulse Resp BP Pulse Ox 97.0 F L 84 20 132/78 94 L 03/16/18 07:54 03/16/18 08:59 03/16/18 07:54 03/16/18 08:41 03/16/18 07:54 - Medications Medications: Current Medications Amlodipine Besylate (Norvasc) 10 mg PO DAILY [facility] Last Admin: 03/16/18 08:41 Dose: 10 mg Aspirin (Aspirin Chewable) 81 mg PO DAILY [facility] Last Admin: 03/16/18 08:41 Dose: 81 mg Atorvastatin Calcium (Lipitor) 20 mg PO DIN [facility] Last Admin: 03/16/18 17:37 Dose: 20 mg Divalproex Sodium (Depakote Dr(*Bid*)) 500 mg PO BID [facility] Last Admin: 03/16/18 17:37 Dose: 500 mg Tamsulosin HCl (Flomax) 0.4 mg PO HS [facility] Last Admin: 03/15/18 22:06 Dose: 0.4 mg - Labs Labs: 02/26/18 05:20 02/26/18 05:20 Attending/Attestation - Attestation I have personally seen and examined this patient.: Yes I have fully participated in the care of the patient.: Yes I have reviewed all pertinent clinical information, including history, physical exam and plan: Yes
--- NOTE | 2018-03-16 18:30 | CP.PCM.PN ---
Subjective - Date & Time of Evaluation Date of Evaluation: 03/16/18 Time of Evaluation: 18:30 - Subjective Subjective: Patient seen in the room has made the most of the extra time here and has gotten much more comfortable on the stairs denies sob/cp set for d/c home tomorrow. Objective - Vital Signs/Intake and Output Vital Signs (last 24 hours): Temp Pulse Resp BP Pulse Ox 97.0 F L 84 20 132/78 94 L 03/16/18 07:54 03/16/18 08:59 03/16/18 07:54 03/16/18 08:41 03/16/18 07:54 - Medications Medications: Current Medications Amlodipine Besylate (Norvasc) 10 mg PO DAILY [facility] Last Admin: 03/16/18 08:41 Dose: 10 mg Aspirin (Aspirin Chewable) 81 mg PO DAILY [facility] Last Admin: 03/16/18 08:41 Dose: 81 mg Atorvastatin Calcium (Lipitor) 20 mg PO DIN [facility] Last Admin: 03/16/18 17:37 Dose: 20 mg Divalproex Sodium (Depakote Dr(*Bid*)) 500 mg PO BID [facility] Last Admin: 03/16/18 17:37 Dose: 500 mg Tamsulosin HCl (Flomax) 0.4 mg PO HS [facility] Last Admin: 03/15/18 22:06 Dose: 0.4 mg - Labs Labs: 02/26/18 05:20 02/26/18 05:20
[2018-03-16 19:48] VITALS: O2SAT 96
[2018-03-17 08:41] VITALS: BP 117/64; PULSE 73; RESP 19; TEMP 97.2
[2018-03-17] MEDS: Divalproex 500 mg DR(BID formulation) PO SCH ×2 (08:46→16:31)
--- NOTE | 2018-03-17 13:21 | CP.PCM.PN ---
Subjective - Date & Time of Evaluation Date of Evaluation: 03/17/18 Time of Evaluation: 13:20 - Subjective Subjective: Patient seen in the room denies sob/cp excited to finally be getting home today stable and has achieved therapy goals has been an excellent patient Objective - Vital Signs/Intake and Output Vital Signs (last 24 hours): Temp Pulse Resp BP Pulse Ox 97.2 F L 73 19 117/64 96 03/17/18 08:41 03/17/18 08:45 03/17/18 08:41 03/17/18 08:45 03/17/18 08:41 - Medications Medications: Current Medications Amlodipine Besylate (Norvasc) 10 mg PO DAILY [facility] Last Admin: 03/17/18 08:45 Dose: 10 mg Aspirin (Aspirin Chewable) 81 mg PO DAILY [facility] Last Admin: 03/17/18 08:46 Dose: 81 mg Atorvastatin Calcium (Lipitor) 20 mg PO DIN [facility] Last Admin: 03/16/18 17:37 Dose: 20 mg Divalproex Sodium (Lesa Russo(*Bid*)) 500 mg PO BID [facility] Last Admin: 03/17/18 08:46 Dose: 500 mg Tamsulosin HCl (Flomax) 0.4 mg PO HS [facility] Last Admin: 03/16/18 21:11 Dose: 0.4 mg - Labs Labs: 02/26/18 05:20 02/26/18 05:20
--- NOTE | 2018-03-17 15:52 | CP.PCM.DIS ---
Provider - Provider Date of Admission: 02/25/18 23:48 Attending physician: Donna Kong MD Primary care physician: Eden Hart MD Consults: 02/26/18 00:36 Physiatry Consult Routine Comment: Consulting Provider: Joaquín Prabhakar Consulting Physician: Joaquín Prabhakar Reason for Consult: Physiatry consult 02/26/18 06:00 Case Management Referral Routine Comment: Physician Instructions: Reason For Exam: Reason for Referral: Discharge Planning 03/11/18 18:35 Podiatry Consult Routine Comment: Consulting Provider: Thuan Romero Consulting Physician: Thuan Romero Reason for Consult: toenails Time Spent in preparation of Discharge (in minutes): 25 Diagnosis - Discharge Diagnosis (1) Seizure disorder Status: Acute Comment: no further seizure activity since admission at [facility]. continue Depakote 500mg PO BID (2) HTN (hypertension) Status: Chronic Comment: BP stable. continue Amlodipine 10mg PO daily (3) CVA (cerebral vascular accident) Status: Chronic Comment: old CVA. continue ASA and statin (4) BPH (benign prostatic hyperplasia) Status: Chronic Comment: continue Flomax 0.4mg PO HS Hospital Course - Lab Results Lab Results: Most Recent Lab Values WBC 3.2 K/uL (4.8-10.8) L 02/26/18 05:20 RBC 4.62 Mil/uL (4.40-5.90) 02/26/18 05:20 Hgb 12.7 g/dL (12.0-18.0) D 02/26/18 05:20 Hct 38.5 % (35.0-51.0) 02/26/18 05:20 MCV 83.3 fl (80.0-94.0) 02/26/18 05:20 MCH 27.4 pg (27.0-31.0) 02/26/18 05:20 MCHC 32.9 g/dL (33.0-37.0) L 02/26/18 05:20 RDW 14.3 % (11.5-14.5) 02/26/18 05:20 Plt Count 250 K/uL (130-400) 02/26/18 05:20 Sodium 131 mmol/l (132-148) L 02/26/18 05:20 Potassium 4.5 MMOL/L (3.6-5.0) 02/26/18 05:20 Chloride 97 mmol/L (98-107) L 02/26/18 05:20 Carbon Dioxide 28 mmol/L (22-30) 02/26/18 05:20 Anion Gap 11 (10-20) 02/26/18 05:20 BUN 25 mg/dl (9-20) H 02/26/18 05:20 Creatinine 1.0 mg/dl (0.8-1.5) 02/26/18 05:20 Est GFR ( Amer) > 60 02/26/18 05:20 Est GFR (Non-Af Amer) > 60 02/26/18 05:20 Random Glucose 73 mg/dL (75-110) L 02/26/18 05:20 Calcium 9.0 mg/dL (8.4-10.2) 02/26/18 05:20 - Hospital Course Hospital Course: 77 yo male with residual left sided weakness from previous CVA with history of HTN and BPH was admitted at [facility] because of Status Epilepticus and was intubated. Work ups which included CT head, CTA head, EEG and ECHO did not show acute findings or changes. His condition improved and patient was extubated. Neuro consult started him on Keppra and then switched to Depakote. Patient was transferred to Acute Rehab for therapy and continuation of management. Patient did well and had no recurrence of seizure activity since admitted with status epilepticus. Patient is discharged in stable condition. Discharge Exam - Head Exam Head Exam: ATRAUMATIC, NORMOCEPHALIC - Eye Exam Eye Exam: absent: Scleral icterus - ENT Exam ENT Exam: Mucous Membranes Moist - Respiratory Exam Respiratory Exam: absent: Rales, Rhonchi, Wheezes, Respiratory Distress - Cardiovascular Exam Cardiovascular Exam: REGULAR RHYTHM, +S1, +S2 - GI/Abdominal Exam GI & Abdominal Exam: Soft. absent: Tenderness - Rectal Exam Rectal Exam: Deferred - Neurological Exam Neurological exam: Alert, Oriented x3 - Psychiatric Exam Psychiatric exam: Normal Affect - Skin Skin Exam: Dry, Intact Discharge Plan - Follow Up Plan Condition: GOOD Disposition: HOME/ ROUTINE Instructions: Seizures, Adult (DC) Referrals: Eden Hart MD [Primary Care Provider] -
== END 2018-03-17 19:45 | disposition home health service (06) | DRG 101 ==
PROVIDERS: ADMIT Internal Medicine; ATTEND Internal Medicine
PROC: F07Z9FZ Gait Training/Functional Ambulation Treatment using Assistive, Adaptive, Supportive or Protective Equipment (ICD-10-PCS; principal; 2018-02-25)
PROC: F06Z3MZ Aphasia Treatment using Augmentative / Alternative Communication Equipment (ICD-10-PCS; 2018-02-25)
PROC: F08Z4FZ Home Management Treatment using Assistive, Adaptive, Supportive or Protective Equipment (ICD-10-PCS; 2018-02-25)
PROC: F07L6FZ Therapeutic Exercise Treatment of Musculoskeletal System - Lower Back / Lower Extremity using Assistive, Adaptive, Supportive or Protective Equipment (ICD-10-PCS; 2018-02-26)
DX: G40.901 Epilepsy, unspecified, not intractable, with status epilepticus (principal); I69.354 Hemiplegia and hemiparesis following cerebral infarction affecting left non-dominant side; I69.320 Aphasia following cerebral infarction; R26.89 Other abnormalities of gait and mobility; M19.90 Unspecified osteoarthritis, unspecified site; K59.00 Constipation, unspecified; I10 Essential (primary) hypertension; M79.675 Pain in left toe(s); M79.674 Pain in right toe(s); N40.0 Benign prostatic hyperplasia without lower urinary tract symptoms; Z87.891 Personal history of nicotine dependence